=== PATIENT | male | born 1935 | race Caucasian/White ===

== ENCOUNTER 2020-02-01 08:51 | Outpatient (REF) | payer MEDICARE, SELFPAY ==
--- NOTE | 2020-02-01 | US_ITS ---
EXAMINATION: ULTRASOUND ABDOMINAL AORTIC ANEURYSM CLINICAL INFORMATION: AAA, follow-up. COMPARISON: Ultrasound of the abdominal aorta dated 12/05/2018 and 11/29/2017. TECHNIQUE: Multiple 2-D grayscale and duplex Doppler ultrasound images of the abdominal aorta were obtained. FINDINGS: Maximum abdominal aortic and common iliac measurements are as follows: Proximal aorta: 2.3 x 2.2 cm (previously 2.6 x 2.4 cm) Mid aorta: 2.4 x 2.1 cm (previously 2.4 x 2.4 cm) Distal aorta: 4.6 x 3.6 cm (previously 3.8 x 3.8 cm), the patent lumen measures up to 2.4 cm in transverse dimension without significant change. Right common iliac: 1.1 cm Left common iliac: 1.1 cm US/US abdominal aortic aneurysm IMPRESSION: 1. Infrarenal abdominal aortic aneurysm with interval increase in size as detailed above. The patent lumen component has not significantly changed.
== END 2020-02-01 08:52 | disposition home or self-care (01) ==
LOC: HO.US 08:51
PROVIDERS: PCP Internal Medicine; Visit Provider Internal Medicine
DX: I74.4 Embolism and thrombosis of arteries of extremities, unspecified (principal)
CPT/HCPCS: 76706

== ENCOUNTER 2020-05-16 17:18 | Emergency (ER) | payer MEDICARE, SELFPAY ==
--- NOTE | ~2020-05-16 | CT_ITS ---
EXAMINATION: CT BRAIN AND CT CERVICAL SPINE WITHOUT CONTRAST. CLINICAL INFORMATION: Fall. COMPARISON: None TECHNIQUE: 5 mm thin axial and reformatted 2 mm thin sagittal and coronal images of brain were obtained. Subsequently axial 3 mm thin and reformatted 2 mm thin sagittal and coronal images of cervical spine were obtained. DLP 920 FINDINGS: BRAIN: There is no acute intra-axial, extra-axial bleed, masses or midline shift. There is no acute infarction in evolution. The lateral ventricles are symmetrical in size and configuration without enlargement. The acevedo to white matter is maintained. Bone windows reveal no calvarial abnormality. A 3 mm radiopaque foreign body seen along the right frontal scalp. The paranasal sinuses and mastoid air cells are well-aerated. CERVICAL SPINE: There is normal cervical lordosis. The vertebral heights are normal. There is anterolisthesis C4-C5 and C5 over C6. There is loss of C4-C5, C5-C6 and C6-C7 disc heights with moderate ventral and mild posterior spondylosis. The craniovertebral junction and the C1-C2 alignment is normal. CT/CT cervical spine wo con IMPRESSION: No acute intracranial process seen. No acute fracture or dislocation cervical spine. Grade 1 anterolisthesis C4 over C5 and C5 over C6. There are degenerative disc changes at the C4-C5, C5-C6 and C6 -7 disc levels. No lytic or sclerotic process seen.
--- NOTE | ~2020-05-16 | CT_ITS ---
EXAMINATION: CT BRAIN AND CT CERVICAL SPINE WITHOUT CONTRAST. CLINICAL INFORMATION: Fall. COMPARISON: None TECHNIQUE: 5 mm thin axial and reformatted 2 mm thin sagittal and coronal images of brain were obtained. Subsequently axial 3 mm thin and reformatted 2 mm thin sagittal and coronal images of cervical spine were obtained. DLP 920 FINDINGS: BRAIN: There is no acute intra-axial, extra-axial bleed, masses or midline shift. There is no acute infarction in evolution. The lateral ventricles are symmetrical in size and configuration without enlargement. The acevedo to white matter is maintained. Bone windows reveal no calvarial abnormality. A 3 mm radiopaque foreign body seen along the right frontal scalp. The paranasal sinuses and mastoid air cells are well-aerated. CERVICAL SPINE: There is normal cervical lordosis. The vertebral heights are normal. There is anterolisthesis C4-C5 and C5 over C6. There is loss of C4-C5, C5-C6 and C6-C7 disc heights with moderate ventral and mild posterior spondylosis. The craniovertebral junction and the C1-C2 alignment is normal. CT/CT head/brain wo con IMPRESSION: No acute intracranial process seen. No acute fracture or dislocation cervical spine. Grade 1 anterolisthesis C4 over C5 and C5 over C6. There are degenerative disc changes at the C4-C5, C5-C6 and C6 -7 disc levels. No lytic or sclerotic process seen.
[2020-05-16 17:35] VITALS: BP 160/90; PULSE 90; O2SAT 98
[2020-05-16 17:36] VITALS: BP 121/70; PULSE 86; RESP 16; TEMP 36.5; O2SAT 98; BMI 19.3
--- NOTE | 2020-05-16 17:43 | PC.NURSE ---
called pt's pharmacy to determine if pt uses blood thinners. Pharmacy reports he does not take blood thinners, has not for 2 years.
[2020-05-16 17:44] VITALS: BP 121/70; PULSE 86; RESP 16; TEMP 36.5; O2SAT 98
[2020-05-16 18:49] LABS: Basophils Absolute Auto 0.1 X10*3/uL (0.0-0.2); Basophils Percent Auto 0.4 % (0-2); Eosinophils Absolute Auto 0.1 X10*3/uL (0.0-0.4); Eosinophils Percent Auto 1.1 % (0-4); Hematocrit 37.5 % (42-52); Hemoglobin 12.4 g/dl (14.0-18.0); Imm Gran Pct Auto 0.9 % (0.0-0.4); Lymphocytes Absolute Auto 0.6 X10*3/uL (1.2-4.9); MANUAL DIFF FLAG SCAN; Mean Corpuscular HGB Conc 33.1 g/dl (31.0-36.0); Mean Corpuscular Hemoglobin 31.2 pg (27.0-33.0); Mean Corpuscular Volume 94.5 fL (80-98); Mean Platelet Volume 11.7 fL (9.4-12.4); Monocytes Percent Auto 8.2 % (2-11); Neutrophils Absolute Auto 9.9 X10*3/uL (2.0-8.3); Neutrophils Percent Auto 84.4 % (45-73); Platelet Count 226 X10*3/uL (160-400); Red Blood Count 3.97 X10*6/uL (4.60-5.80); Red Cell Distribution Width 13.8 % (11.0-16.0); SCAN SMEAR FLAG 1; White Blood Count 11.8 X10*3/uL (4.8-10.8)
[2020-05-16 18:57] LABS: INTERNATIONAL NORM RATIO 1.2 (0.9-1.1); Prothrombin Time 14.7 SEC (10.8-13.0)
[2020-05-16 18:59] LABS: Partial Thromboplastin Time 33.6 SEC (24.1-38.0)
[2020-05-16 19:10] VITALS: BP 133/67; PULSE 84; RESP 16; TEMP 37.1; O2SAT 99
[2020-05-16 19:13] LABS: SLIDE REVIEW VERIFIED
--- NOTE | 2020-05-16 19:41 | ED_ITS ---
HPI - Fall General Chief Complaint: Fall Stated Complaint: FALL,-LOC,+COLLAR,+THINNERS,LAC+ABRASION Time Seen by Provider: 05/16/20 17:41 Source: EMS Mode of arrival: EMS Limitations: no limitations History of Present Illness HPI Narrative: Pleasant 84-year-old male presenting via EMS with complaint of fall states he was walking and he stumbled and his leg gave out fell forward hitting his head on the sidewalk resulting in abrasion/laceration to the forehead area. Denies any LOC. Positive C-collar. There is a question whether he is taking blood thinners but he denies this. Onset (ago): minute(s) Fall from: standing Fall witnessed: yes, by family Place fall occurred: street Loss of consciousness: none Length of LOC: second(s) Prolonged down time: no Symptoms prior to fall: none Context: tripped/slipped Location of injury: head and face Related Data Allergies Allergy/AdvReac Type Severity Reaction Status Date / Time No Known Allergies Allergy Mild NONE Unverified 11/02/19 15:17 Review of Systems Review of Systems: Constitutional: No Weight loss, No Fever, No Chills, No Night Sweats, No Fatigue, No Malaise ENT/Mouth: No Hearing loss, No Ear Pain, No Nasal Congestion, No Sinus Pain, No Hoarseness, No sore throat, No Rhinorrhea, No Swallowing Difficulty Eyes: No Eye Pain, No Swelling, No Redness, No Foreign Body, No Discharge, No Vision Changes Cardiovascular: No Chest Pain, No SOB, No Dyspnea on Exertion, No Orthopnea, No Edema, No Palpitations Respiratory: No Cough, No Sputum, No Wheezing, No Smoke Exposure, No Dyspnea Gastrointestinal: No Nausea, No Vomiting, No Diarrhea, No Constipation, No ab dominal Pain, No Hematochezia, No Melena Genitourinary: no irregular bleeding, No Dysuria, No Urinary Frequency, No Hematuria, No Urinary Incontinence, No Urgency, No Flank Pain, No Urinary Flow Changes, No Hesitancy Musculoskeletal: No joint pain, No Myalgias, No Joint Swelling Skin: No Skin Lesions, No rash Neuro: No Weakness, No Numbness, No Paresthesias, No Loss of Consciousness, No Dizziness, No Headache Psych: No Social Issues Heme/Lymph: No Bruising, No Bleeding,No Lymphadenopathy Endocrine: No Polyuria, No Polydipsia, No Temperature Intolerance Yes all other systems are reviewed and are negative [facility] Social History Social History Alcohol intake: never Smoking Status: Former smoker Use of substances other than those prescribed or required for medical reasons: No Advance Directives: No Advance Directives Information Provided: Yes Physical Exam Vital Signs: Vital Signs: Last Vital Signs Temp 98.7 F 05/16/20 19:10 Pulse 84 05/16/20 19:10 Resp 16 05/16/20 19:10 BP 133/67 05/16/20 19:10 Pulse Ox 99 05/16/20 19:10 Body Mass Index 19.3 Reviewed Const: General: cooperative and healthy appearing; No acute distress or intoxicated appearing Nutritional Appearance: average body habitus Orientation/consciousness: patient oriented x3 HENMT: Head: Yes normal to inspection Head images: 1. Superficial overlying abrasion with 0.5 cm laceration. 2. Superficial abrasion no active bleeding. Nasal structure symmetrical and midline without deformity. Ears: hearing grossly normal bilaterally General nose exam: Normal nares pre sent, No nasal polyps present, Normal septum present, normal septum, no foreign body in nares and no nasal polyps Face and sinus: Yes face symmetric, Yes abrasion and No Facial tenderness on exam of face and sinuses Mouth: Normal oral and palatal mucosa present and lip normal Eyes: General: appearance normal, both eyes and all related structures Visual Adorno: normal visual adorno by confrontation Neck: Neck: Yes normal visual inspection, No positive Brudzinski's sign, No positive Kernig's sign and No tender Thyroid: Thyroid normal Chest: Chest palpation & inspection: normal inspection of the chest Resp: Effort & Inspection: normal respiratory effort Cardio: Jugular venous distension: no JVD Rate: regular rate Rhythm: regular rhythm Heart sounds: S1 normal heart sound present and S2 normal heart sound present GI: Inspection: Yes normal to inspection Percussion: Yes normal to percussion Auscultation: normal bowel sounds : General: Yes no CVA tenderness Back/Spine/Pelvis: Back: no CVA tenderness Skin: General skin exam: no rashes or lesions noted Neuro: General: patient oriented x3 Extrem: General: Yes normal to inspection NIH Stroke Scale Internal: Initial- Upon Arrival Level of Consciousness: Alert Level of Consciousness Questions: Answers both questions correctly Level of Consciousness Commands: Performs both tasks correctly Best Gaze: Normal Visual: No visual loss Facial Palsy: Normal Motor Arm (Right): No drift Motor Arm (Left): No drift Motor Leg (Right): No drift Motor Leg (Left): No drift Limb Ataxia: Absent Sensory: Normal Best Language: No aphasia Dysarthia: Normal Extinction and Inattention: No abnormality Score: 0 Course Course Course Narrative: Mechanical fall resulting in abrasion/knee laceration to the forehead and nasal bridge there was a clear foreign body /small gravel stone that was removed with ease and 1 stitch was placed in the forehead. No acute findings on the cervical/head CT. Patient out of bed dressed himself put shoes on and ambulatory steady gait. Offers no other complaints. Daughter here to pick him up. Procedures Laceration Laceration 1: Site: face Size (cm): 0.5 Description: linear and contaminated (Small gravel stone about 3 mm in size removed in bed in the superficial tissue.) Depth: simple, single layer Local Anesthetic: lidocaine 1% Amount of anesthesia used (mL): 2 Pre-repair: wound explored and irrigated extensively Skin layer closed with: nylon Size (cm): 6-0 Number of sutures: 1 Technique: simple, interrupted MDM - Fall Medical Records Attestation: I reviewed the patient's medical records. Lab Data Attestation: I reviewed the patient's lab results. Result diagrams: 05/16/20 18:34 Labs: Lab Results 05/16/20 05/16/20 Range/Units 18:34 18:34 WBC 11.8 H (4.8-10.8) X10*3/uL RBC 3.97 L (4.60-5.80) X10*6/uL Hgb 12.4 L (14.0-18.0) g/dl Hct 37.5 L (42-52) % MCV 94.5 (80-98) fL MCH 31.2 (27.0-33.0) pg MCHC 33.1 (31.0-36.0) g/dl RDW 13.8 (11.0-16.0) % Plt Count 226 (160-400) X10*3/uL MPV 11.7 (9.4-12.4) fL Immature Gran % (Auto) 0.9 H (0.0-0.4) % Neut % (Auto) 84.4 H (45-73) % Lymph % (Auto) 5.0 L (20-40) % [place] % (Auto) 8.2 (2-11) % Eos % (Auto) 1.1 (0-4) % Baso % (Auto) 0.4 (0-2) % Lymph # (Auto) 0.6 L (1.2-4.9) X10*3/uL [place] # (Auto) 1.0 (0.1-1.2) X10*3/uL Eos # (Auto) 0.1 (0.0-0.4) X10*3/uL Baso # (Auto) 0.1 (0.0-0.2) X10*3/uL Abs Immat Gran (auto) 0.10 H (0.00-0.03) X10*3/uL Absolute Neuts (auto) 9.9 H (2.0-8.3) X10*3/uL Absolute Nucleated RBC 0.000 (0.0-0.012) X10*3/uL Nucleated RBC % (auto) 0.0 (0.0-0.2) /100WBC Smear Tech's Comments VERIFIED PT 14.7 H (10.8-13.0) SEC INR 1.2 H (0.9-1.1) APTT 33.6 (24.1-38.0) SEC Imaging Data Head/cervical spine CT: Radiologist's impression: [address] [id number] Scan ReportSigned Patient: Magno Kilgore [facility]#: [id number]: 1935cct:[id number]/Sex: 84 / MADM Date: 05/16/20Loc: [email or web address] Dr: Ordering Physician: Jackson Gates NP Date of Service: 05/16/20 Procedure(s): CT cervical spine wo con Accession Number(s): [id number] cc: Jackson Gates [employer]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 CLINICAL INFORMATION: Fall. COMPARISON: None TECHNIQUE: 5 mm thin axial and reformatted 2 mm thin sagittal and coronal images of brain were obtained. Subsequently axial 3 mm thin and reformatted 2 mm thin sagittal and coronal images of cervical spine were obtained. DLP 920 FINDINGS: BRAIN: There is no acute intra-axial, extra-axial bleed, masses or midline shift. There is no acute infarction in evolution. The lateral ventricles are symmetrical in size and configuration without enlargement. The acevedo to white matter is maintained. Bone windows reveal no calvarial abnormality. A 3 mm radiopaque foreign body seen along the right frontal scalp. The paranasal sinuses and mastoid air cells are well-aerated. CERVICAL SPINE: There is normal cervical lordosis. The vertebral heights are normal. There is anterolisthesis C4-C5 and C5 over C6. There is loss of C4-C5, C5-C6 and C6-C7 disc heights with moderate ventral and mild posterior spondylosis. The craniovertebral junction and the C1-C2 alignment is normal. CT/CT cervical spine wo con IMPRESSION: No acute intracranial process seen. No acute fracture or dislocation cervical spine. Grade 1 anterolisthesis C4 over C5 and C5 over C6. There are degenerative disc changes at the C4-C5, C5-C6 and C6 -7 disc levels. No lytic or sclerotic process seen. 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[facility] [place] Discharge Clinical Impression: Fall Qualifiers: Encounter type: initial encounter Qualified Code(s): W19.XXXA - Unspecified fall, initial encounter Forehead laceration Qualifiers: Encounter type: initial encounter Qualified Code(s): S01.81XA - Laceration without foreign body of other part of head, initial encounter Abrasion of nose Qualifiers: Encounter type: initial encounter Qualified Code(s): S00.31XA - Abrasion of nose, initial encounter Patient Disposition: Home, Self-Care Instructions: Abrasion (ED), Fall Prevention (ED), Facial Laceration (ED) Additional Instructions: The CT scan of your head and neck did not show any acute findings Home safety as reviewed Have stitches removed from the forehead in 5-7 days Keep site clean and dry Monitor for signs of infection including redness, swelling, discharge, pain, fever if any of these present return right away to emergency room You come here to have this removed or your primary care doctor Return if any concerns worsening symptoms Follow up as instructed Thank you Referrals: Neeraj Andrew MD [Primary Care Provider] - 5 days
== END 2020-05-16 19:59 | disposition home or self-care (01) ==
PROVIDERS: Nurse Practitioner Primary Care; Emergency Provider Emergency Medicine; PCP Internal Medicine
DX: S01.81XA Laceration without foreign body of other part of head, initial encounter (principal); S00.31XA Abrasion of nose, initial encounter; W01.0XXA Fall on same level from slipping, tripping and stumbling without subsequent striking against object, initial encounter; Y93.01 Activity, walking, marching and hiking; Y92.480 Sidewalk as the place of occurrence of the external cause; Y99.9 Unspecified external cause status
CPT/HCPCS: 12053; 36415; 70450; 72125; 85025; 85610; 85730; 99284

== ENCOUNTER 2020-05-23 11:18 | Emergency (ER) | payer MEDICARE, SELFPAY ==
[2020-05-23 11:31] VITALS: BP 108/63; PULSE 103; RESP 18; TEMP 36.7; O2SAT 98; BMI 40.1
--- NOTE | 2020-05-23 11:40 | ED.SKABFB ---
HPI - Skin/Abscess/Foreign Bdy General Chief complaint: Skin/Abscess/Foreign Body Stated complaint: suture removal Time Seen by Provider: 05/23/20 11:40 History of Present Illness HPI narrative: Patient presents for removal for 1 suture in his forehead, there is no complaints of swelling discharge or redness, no pain Related Data Allergies Allergy/AdvReac Type Severity Reaction Status Date / Time No Known Allergies Allergy Mild NONE Verified 05/23/20 11:39 Review of Systems Review of Systems: Positive for suture removal Negative no fever no chills no dizziness no weakness no discharge from the wound no joint pains PMFSH Past Medical History Source: nursing notes reviewed Social History Social History Alcohol intake: never Smoking Status: Former smoker Advance Directives: No Advance Directives Information Provided: No Physical Exam Vital Signs: Vital Signs: Last Vital Signs Temp 98.0 F 05/23/20 11:31 Pulse 103 H 05/23/20 11:31 Resp 18 05/23/20 11:31 BP 108/63 05/23/20 11:31 Pulse Ox 98 05/23/20 11:31 Body Mass Index 40.1 General appearance: Comfortable cooperative The head shows a suture line in the forehead which has no surrounding erythema no swelling no discharge or evidence of infection The neck is supple, Respiratory no distress Extremities full range of motion x4 Course Course Course Narrative: Sutures are removed from forehead laceration with no dehiscence or complication and patient is discharged Discharge Plan Discharge Clinical Impression: Visit for suture removal Patient Disposition: Home, Self-Care Interventions: ED Discharge Assessment Last Done: 05/23/20 12:13 Discharge Date/Time: 05/23/20 12:14
== END 2020-05-23 12:14 | disposition home or self-care (01) ==
PROVIDERS: Emergency Provider Emergency Medicine; PCP Internal Medicine
DX: Z48.02 Encounter for removal of sutures (principal); S01.81XD Laceration without foreign body of other part of head, subsequent encounter; X58.XXXD Exposure to other specified factors, subsequent encounter
CPT/HCPCS: 99283

== ENCOUNTER 2020-06-10 13:30 | Outpatient (REF) | payer MEDICARE, SELFPAY ==
[2020-06-10 13:59] LABS: Estimated Average Glucose 103 mg/dL; Hemoglobin A1c % 5.2 %
[2020-06-10 14:41] LABS: Alanine Aminotransferase 47 U/L (0-40); Albumin Level 3.3 g/dL (3.5-5.0); Alkaline Phosphatase 627 U/L (39-117); Anion Gap 17 (12-20); Aspartate Amino Transferase 72 U/L (5-37); Bilirubin Total 1.5 mg/dL (0.0-1.0); Blood Urea Nitrogen 18 mg/dL (9-16); Calcium 8.8 mg/dL (8.4-10.2); Carbon Dioxide 25 mmol/L (22-29); Chloride 102 mmol/L (96-108); Estimated Glomerular Filt Rate > 60; Glucose Random 97 mg/dL (60-115); Potassium 4.7 mmol/L (3.3-5.1); Sodium 139 mmol/L (135-145); Total Protein 6.3 g/dL (6.5-8.0)
== END 2020-06-10 13:31 | disposition home or self-care (01) ==
LOC: HO.LNP 13:30
PROVIDERS: Visit Provider Internal Medicine
DX: R63.4 Abnormal weight loss (principal); R73.03 Prediabetes
CPT/HCPCS: 80053; 83036

== ENCOUNTER → 2020-06-20 10:56 | Outpatient (REF) | payer MEDICARE, SELFPAY ==
--- NOTE | ~2020-06-20 | NM_ITS ---
EXAMINATION: NM BONE SCAN OF THE WHOLE BODY CLINICAL INFORMATION: Prostate cancer. COMPARISON: No pertinent studies to compare. TECHNIQUE: Multiple gamma scintillation camera images of the whole body were performed 2 hours following the intravenous administration of 20 mCi Tc-99m MDP. FINDINGS: In the head, unremarkable. In the thoracic cage and upper extremities, unremarkable. Some mild uptake in the right AC joint is likely degenerative. In the spine, unremarkable. Activity on the anterior image overlying the mid lumbar vertebrae may be in soft tissue. No obliques are obtained. I cannot exclude vertebral body uptake anterior. In the pelvis, unremarkable. In the lower extremities, unremarkable. Otherwise, there is some uptake on the anterior image overlying the L2-L3 central and to the left. No finding on the posterior image. The urinary bladder and faint visualization of both kidneys are noted. NM/NM bone scan whole body IMPRESSION: As described, some globular activity on the anterior image overlying the mid lumbar vertebrae of uncertain etiology. This could be uptake in soft tissue versus vertebral body activity. Recommend CT to fully evaluate. Otherwise, no scintigraphic evidence of metastatic disease.
== END ==
LOC: HO.NUCMED 10:56
PROVIDERS: PCP Internal Medicine; Visit Provider Internal Medicine
DX: C61 Malignant neoplasm of prostate (principal); R74.8 Abnormal levels of other serum enzymes
CPT/HCPCS: 78306; A9503

== ENCOUNTER 2020-06-25 18:08 | Inpatient (IN) | payer MEDICARE, SELFPAY ==
--- NOTE | ~2020-06-25 | CT_ITS ---
EXAMINATION: CT ABDOMEN AND PELVIS WITH CONTRAST CLINICAL INFORMATION: Diffuse abdominal pain. Worsening pain left lower quadrant. COMPARISON: CT scan abdomen pelvis 09/30/2011 TECHNIQUE: Multidetector volumetric images were obtained from the superior aspect of the liver through the pubic symphysis following administration 85 mL of Omnipaque 350 intravenous contrast. Sagittal and coronal reformatted images were obtained on the technologist's workstation. Oral contrast: No This CT examination was performed using dose optimization techniques as appropriate, variously including the following: *Automated exposure control *Adjustment of mA and/or kV according to patient size (this includes techniques or standardized protocols for targeted exams where dose is matched to indication/reason for exam; i.e. extremities or head) *Use of iterative reconstruction technique DLP: 294 mGy-cm FINDINGS: LUNG BASES: Marked emphysematous change of lungs. No acute airways disease. No pleural effusion. LIVER, GALLBLADDER, AND BILIARY TREE: There are innumerable hypodense masses throughout the liver consistent with metastatic disease. No intrahepatic bile duct dilatation. The gallbladder is unremarkable with no evidence of radiopaque gallstones, gallbladder wall thickening, or obvious pericholecystic inflammatory changes. PANCREAS: Pancreas is atrophic. No acute change of the pancreas. No pancreatic mass. Pancreatic duct dilatation. SPLEEN: Unremarkable. ADRENAL GLANDS: Unremarkable. KIDNEYS AND URETERS: The kidneys are normal in size, shape, and attenuation. No hydronephrosis, hydroureter, or calculi seen. No perinephric stranding. Bilateral exophytic renal cysts. In the right is a midpole cyst measuring 4 cm. The left there is Extensive the upper pole measuring 3.7 cm. No follow-up imaging is recommended for simple renal cyst. BLADDER: Unremarkable. GASTROINTESTINAL TRACT: There is an intussusception involving the right colon at the hepatic flexure. There appears to be intussusception of the cecum along with the terminal ileum into the colon at the hepatic flexure. The cecum appears to have mild thickening of the wall. Given the presence of the metastatic change of liver a neoplasm would be suspected of the colon. There is no obstruction of the bowel however. No dilatation of small bowel loops. Moderate volume of stool in the colon. ABDOMINAL WALL: No significant hernia is appreciated. LYMPH NODES: No significant lymphadenopathy in the abdomen or pelvis. There are a few scattered shotty lymph nodes in the retroperitoneum. VASCULAR: Redemonstration of known infrarenal abdominal aortic aneurysm. This has a maximal dimension at the mid to distal aorta measuring AP 4.7 by transverse 3.8 cm axial image [id number] series 4. Aneurysm on the ultrasound exam of 02/01/2020 measuring 4.6 x 3.6 cm. There is intraluminal thrombus present in the aorta. There are diffuse extensive atherosclerotic vascular wall calcifications throughout the abdomen and pelvis. There is normal enhancement of the portal vein and splenic vein and superior mesenteric vein. MESENTERY: Small volume of abdominal ascites in the lower pelvis around the inferior liver margin. No inflammation or free air. PELVIC VISCERA: Prostate and seminal vesicles are surgically absent. Small hydrocele present bilaterally. OSSEOUS STRUCTURES: Multilevel degenerative spondylosis spine. Compression deformity superior endplate of L2 appears to be chronic though is new since prior CAT scan of 2011. There is about 30% loss of height of the central vertebrae. No suspicious focal bone lesions. CT/CT abdomen pelvis w con IMPRESSION: 1. Innumerable masses throughout the liver consistent with metastatic disease. 2. Intussusception at the hepatic flexure involving the cecum and terminal ileum. Thickening of the cecal wall. Given the presence of the metastatic lesions neoplasm of colon is suspected. 3. Small volume of abdominal ascites. 4. Stable infrarenal abdominal aortic aneurysm. Recommend continued follow-up at 6 months. 5. Status post prostatectomy and resection of seminal vesicles. Small bilateral hydrocele and scrotal sac. 6. Emphysematous change of lungs. This critical result was discussed with Dr. Flores on 06/25/2020, 11:35 PM and it was ascertained that the content and urgency of the report was understood at the time of direct communication.
--- NOTE | ~2020-06-25 | CT_ITS ---
PROCEDURE: CT GUIDED BIOPSY, LIVER CLINICAL INFORMATION: Metastatic disease to liver COMPARISON: CT scanning of June 25, 2020 and September 30, 2011 TECHNIQUE: CT fluoroscopic guided liver biopsy This CT examination was performed using dose optimization techniques as appropriate, variously including the following: *Automated exposure control *Adjustment of mA and/or kV according to patient size (this includes techniques or standardized protocols for targeted exams where dose is matched to indication/reason for exam; i.e. extremities or head) *Use of iterative reconstruction technique DLP: 167 mGy-cm FINDINGS: Informed consent was obtained from the patient prior to the procedure. During this process, the procedure and potential alternatives were explained, along with the intended outcome and benefits. The risks of the procedure, as well as the risk of not doing the procedure, were discussed. The patient was given the opportunity to ask questions regarding the procedure and appeared competent to make medical decisions. A signed consent form which documents this discussion was placed in the medical record. Preliminary scanning demonstrates prominence of the liver with multiple regions of diminished density present. Small bilateral pleural effusions are seen as well as small amount of free fluid within the abdomen. Increased density seen within the gallbladder likely related to vicarious excretion of contrast. An infrarenal Abdominal aortic aneurysm is seen measuring 5 x 3.9 cm in size. Using sterile technique and CT fluoroscopic guidance a 19-gauge needle guide was placed from an anterior approach into the left lobe of liver. 3 20-gauge core biopsies were then performed. Patient can't procedure without difficulty. Post biopsy scanning did not demonstrate any evidence of subcapsular hematoma. CT/CT biopsy liver IMPRESSION: Successful liver core biopsy as described.
[2020-06-25 19:04] VITALS: BP 98/48; PULSE 90; RESP 18; TEMP 36.4; O2SAT 98; BMI 18.4
[2020-06-25 20:50] VITALS: BP 126/67; PULSE 79; RESP 22; TEMP 37.3; O2SAT 99
--- NOTE | 2020-06-25 20:51 | PC.NURSE ---
Pt aaox4, ambulatory with steady gait. Pt c/o abdominal pain, requesting PO fluids, this RN informs pt he is NPO until provider has seen him, imaging has been obtained and resulted if indicated, and pt cleared by provider for PO intake. Pt expresses understanding. pt reports he took tylenol for his discomfort earlier in day and it is now wearing off. This RN informs pt that once seen by provider, he can likelybe medicated for pain. Pt expresses understanding and agrees to plan. Victorina Gandhi at bedside placing pt on bedside monitoring specialist and obtaining VS. Pt stretcher in lowest locked position, rails raised, call paris within reach.
--- NOTE | 2020-06-25 21:24 | ECG_ITS ---
Test Reason : WEAK Blood Pressure : / mmHG Vent. Rate : 092 BPM Atrial Rate : 092 BPM P-R Int : 110 ms QRS Dur : 080 ms QT Int : 406 ms P-R-T Axes : 086 040 003 degrees QTc Int : 503 ms Sinus rhythm with short ID Inferior infarct-cited before Prolonged QT Abnormal ECG When compared with ECG of 24-NOV-2016 11:16, T wave amplitude has decreased in Anterolateral leads QT has lengthened Referred By: Phyllis Flores Electronically Signed By:Jaya Greenberg
--- NOTE | 2020-06-25 21:29 | ED_ITS ---
HPI - Abdominal Pain General Chief Complaint: Abdominal Pain Stated Complaint: abd pain Time Seen by Provider: 06/25/20 20:20 Source: patient Mode of arrival: ambulatory Limitations: no limitations History of Present Illness HPI narrative: Patient comes emergency room complaining of diffuse abdominal pain, but worse on the left lower quadrant. Patient complaining of diarrhea for 3 weeks. Patient states he has been having intermittent abdominal pain for the last 2-3 years, the abdominal pain usually lasts for about 5 days and then self resolves. However, this time it has been 3 weeks. Patient denies vomiting, no chest pain, no shortness of breath. Patient denies black stool or fresh blood per rectum. Denies dysuria Related Data Allergies Allergy/AdvReac Type Severity Reaction Status Date / Time No Known Allergies Allergy Mild NONE Verified 05/23/20 11:39 Review of Systems Review of Systems Constitutional : No Weight loss, No Fever, No Chills, No Night Sweats, No F atigue, No Malaise ENT/Mouth : No Hearing loss, No Ear Pain, No Nasal Congestion, No Sinus Pain, No Hoarseness, No sore throat, No Rhinorrhea, No Swallowing Difficulty Eyes: No Eye Pain, No Swelling, No Redness, No Foreign Body, No Discharge, No Vision Changes Cardiovascular : No Chest Pain, No SOB, No Dyspnea on Exertion, No Orthopnea, No Edema, No Palpitations Respiratory : No Cough, No Sputum, No Wheezing, No Smoke Exposure, No Dyspnea Gastrointestinal : No Nausea, No Vomiting, complaining of diarrhea for 3 weeks, No Constipation, complaining of abdominal cramping, worse in the left lower q uadrant, sharp that time. No Hematochezia, No Melena Genitourinary : no irregular bleeding, No Dysuria, No Urinary Frequency, No Hematuria, No Urinary Incontinence, No Urgency, No Flank Pain, No Urinary Flow Changes, No Hesitancy Musculoskeletal : No joint pain, No Myalgias, No Joint Swelling Skin : No Skin Lesions, No rash Neuro : No Weakness, No Numbness, No Paresthesias, No Loss of Consciousness, No Dizziness, No Headache Psych : No Anxiety/Panic, No Depression, No SI/HI/AH/VH, No Social Issues, Heme/Lymph: No Bruising, No Bleeding,No Lymphadenopathy Endocrine : No Polyuria, No Polydipsia, No Temperature Intolerance Physical Exam Vital Signs: Vital Signs: Last Vital Signs Temp 98.3 F 06/26/20 00:14 Pulse 91 06/26/20 00:14 Resp 19 06/26/20 00:31 BP 128/72 06/26/20 00:14 Pulse Ox 97 06/26/20 00:14 Body Mass Index 18.4 Appearance: Alert. Oriented X3. No acute distress. Eyes: Pupils equal, round and reactive to light. ENT: Pharynx normal. Neck: Normal inspection. Neck supple. No lymph nodes noted. No crepitus CVS: Normal heart rate and rhythm. Pulses normal. Normal S1 and S2 Respiratory: No respiratory distress. Breath sounds normal. No Wheezing. No rales Abdomen: Soft, mild discomfort to palpation over the left lower quadrant, No rigidity. No distention. Skin: Skin warm and dry. Normal skin color. Normal skin turgor. Extremities: No lower extremity edema. No lower extremity edema. No L acerations. No Rash Neuro: Oriented X 3. No motor deficit. No sensory deficit. Moving all extermit ies. No slurred speech. Course Course Course Narrative: I discussed the CT findings with the patient. I discussed with him the high likelihood of him having cecal neoplasm, the intussusception, and the liver metastasis. Patient states that at this time, he is not sure if he wants full treatment including chemo/radiation/surgery what ever may be needed. Patient states that he will make a better decision in the morning after he gets item Heme-Onc consult and speaks to his family. I discussed the CT and the patient with Dr. Tyler, patient will be admitted to Internal Medicine, he will consult in the morning. As mentioned above, patient will also need a Hematology-Oncology consult I discussed the patient with Dr. White who does not feel comfortable admitting a patient with an intussusception. I discussed the patient with Dr. Tyler and agrees to admit the patient. Medicine will be consulting MDM - Abdominal Pain Lab Data Result diagrams: 06/25/20 22:04 06/25/20 22:04 Labs: Lab Results 06/25/20 06/25/20 06/25/20 Range/Units 22:04 22:04 22:04 WBC 13.0 H (4.8-10.8) X10*3/uL RBC 4.04 L (4.60-5.80) X10*6/uL Hgb 12.7 L (14.0-18.0) g/dl Hct 39.7 L (42-52) % MCV 98.3 H (80-98) fL MCH 31.4 (27.0-33.0) pg MCHC 32.0 (31.0-36.0) g/dl RDW 17.2 H (11.0-16.0) % Plt Count 200 (160-400) X10*3/uL MPV 11.7 (9.4-12.4) fL Immature Gran % (Auto) 0.4 (0.0-0.4) % Neut % (Auto) 85.5 H (45-73) % Lymph % (Auto) 5.6 L (20-40) % Nicholas % (Auto) 7.9 (2-11) % Eos % (Auto) 0.5 (0-4) % Baso % (Auto) 0.1 (0-2) % Lymph # (Auto) 0.7 L (1.2-4.9) X10*3/uL Nicholas # (Auto) 1.0 (0.1-1.2) X10*3/uL Eos # (Auto) 0.1 (0.0-0.4) X10*3/uL Baso # (Auto) 0.0 (0.0-0.2) X10*3/uL Abs Immat Gran (auto) 0.05 H (0.00-0.03) X10*3/uL Absolute Neuts (auto) 11.1 H (2.0-8.3) X10*3/uL Absolute Nucleated RBC 0.000 (0.0-0.012) X10*3/uL Nucleated RBC % (auto) 0.0 (0.0-0.2) /100WBC PT 17.8 H D (10.8-13.0) SEC INR 1.5 H (0.9-1.1) Sodium 142 (135-145) mmol/L Potassium 4.6 (3.3-5.1) mmol/L Chloride 101 (96-108) mmol/L Carbon Dioxide 28 (22-29) mmol/L Anion Gap 18 (12-20) BUN 19 H (9-16) mg/dL Creatinine 0.78 (0.5-1.4) mg/dL Estim Creat Clear Calc 45.6 Estimated GFR > 60 Random Glucose 80 (60-115) mg/dL Calcium 9.2 (8.4-10.2) mg/dL Total Bilirubin 2.4 H (0.0-1.0) mg/dL Direct Bilirubin 1.8 H (0.0-0.5) mg/dL AST 54 H (5-37) U/L ALT 33 (0-40) U/L Alkaline Phosphatase 624 H (39-117) U/L Total Protein 6.3 L (6.5-8.0) g/dL Albumin 3.2 L (3.5-5.0) g/dL Lipase (8-78) U/L Stool Occult Blood (NEGATIVE) COVID-19 ([facility]) (Negative) COVID-19 Clin Com 06/25/20 06/26/20 06/26/20 Range/Units 22:04 00:18 00:18 WBC (4.8-10.8) X10*3/uL RBC (4.60-5.80) X10*6/uL Hgb (14.0-18.0) g/dl Hct (42-52) % MCV (80-98) fL MCH (27.0-33.0) pg MCHC (31.0-36.0) g/dl RDW (11.0-16.0) % Plt Count (160-400) X10*3/uL MPV (9.4-12.4) fL Immature Gran % (Auto) (0.0-0.4) % Neut % (Auto) (45-73) % Lymph % (Auto) (20-40) % Nicholas % (Auto) (2-11) % Eos % (Auto) (0-4) % Baso % (Auto) (0-2) % Lymph # (Auto) (1.2-4.9) X10*3/uL Nicholas # (Auto) (0.1-1.2) X10*3/uL Eos # (Auto) (0.0-0.4) X10*3/uL Baso # (Auto) (0.0-0.2) X10*3/uL Abs Immat Gran (auto) (0.00-0.03) X10*3/uL Absolute Neuts (auto) (2.0-8.3) X10*3/uL Absolute Nucleated RBC (0.0-0.012) X10*3/uL Nucleated RBC % (auto) (0.0-0.2) /100WBC PT (10.8-13.0) SEC INR (0.9-1.1) Sodium (135-145) mmol/L Potassium (3.3-5.1) mmol/L Chloride (96-108) mmol/L Carbon Dioxide (22-29) mmol/L Anion Gap (12-20) BUN (9-16) mg/dL Creatinine (0.5-1.4) mg/dL Estim Creat Clear Calc Estimated GFR Random Glucose (60-115) mg/dL Calcium (8.4-10.2) mg/dL Total Bilirubin (0.0-1.0) mg/dL Direct Bilirubin (0.0-0.5) mg/dL AST (5-37) U/L ALT (0-40) U/L Alkaline Phosphatase (39-117) U/L Total Protein (6.5-8.0) g/dL Albumin (3.5-5.0) g/dL Lipase < 4 L (8-78) U/L Stool Occult Blood NEGATIVE (NEGATIVE) COVID-19 ([facility]) Negative (Negative) COVID-19 Clin Com See Note Imaging Data CT scan - abdomen: Radiologist's impression: FINDINGS: LUNG BASES: Marked emphysematous change of lungs. No acute airways disease. No pleural effusion. LIVER, GALLBLADDER, AND BILIARY TREE: There are innumerable hypodense masses throughout the liver consistent with metastatic disease. No intrahepatic bile duct dilatation. The gallbladder is unremarkable with no evidence of radiopaque gallstones, gallbladder wall thickening, or obvious pericholecystic inflammatory changes. PANCREAS: Pancreas is atrophic. No acute change of the pancreas. No pancreatic mass. Pancreatic duct dilatation. SPLEEN: Unremarkable. ADRENAL GLANDS: Unremarkable. KIDNEYS AND URETERS: The kidneys are normal in size, shape, and attenuation. No hydronephrosis, hydroureter, or calculi seen. No perinephric stranding. Bilateral exophytic renal cysts. In the right is a midpole cyst measuring 4 cm. The left there is Extensive the upper pole measuring 3.7 cm. No follow-up imaging is recommended for simple renal cyst. BLADDER: Unremarkable. GASTROINTESTINAL TRACT: There is an intussusception involving the right colon at the hepatic flexure. There appears to be intussusception of the cecum along with the terminal ileum into the colon at the hepatic flexure. The cecum appears to have mild thickening of the wall. Given the presence of the metastatic change of liver a neoplasm would be suspected of the colon. There is no obstruction of the bowel however. No dilatation of small bowel loops. Moderate volume of stool in the colon. ABDOMINAL WALL: No significant hernia is appreciated. LYMPH NODES: No significant lymphadenopathy in the abdomen or pelvis. There are a few scattered shotty lymph nodes in the retroperitoneum. VASCULAR: Redemonstration of known infrarenal abdominal aortic aneurysm. This has a maximal dimension at the mid to distal aorta measuring AP 4.7 by transverse 3.8 cm axial image [id number] series 4. Aneurysm on the ultrasound exam of 02/01/2020 measuring 4.6 x 3.6 cm. There is intraluminal thrombus present in the aorta. There are diffuse extensive atherosclerotic vascular wall calcifications throughout the abdomen and pelvis. There is normal enhancement of the portal vein and splenic vein and superior mesenteric vein. MESENTERY: Small volume of abdominal ascites in the lower pelvis around the inferior liver margin. No inflammation or free air. PELVIC VISCERA: Prostate and seminal vesicles are surgically absent. Small hydrocele present bilaterally. OSSEOUS STRUCTURES: Multilevel degenerative spondylosis spine. Compression deformity superior endplate of L2 appears to be chronic though is new since prior CAT scan of 2011. There is about 30% loss of height of the central vertebrae. No suspicious focal bone lesions. CT/CT abdomen pelvis w con IMPRESSION: 1. Innumerable masses throughout the liver consistent with metastatic disease. 2. Intussusception at the hepatic flexure involving the cecum and terminal ileum. Thickening of the cecal wall. Given the presence of the metastatic lesions neoplasm of colon is suspected. 3. Small volume of abdominal ascites. 4. Stable infrarenal abdominal aortic aneurysm. Recommend continued follow-up at 6 months. 5. Status post prostatectomy and resection of seminal vesicles. Small bilateral hydrocele and scrotal sac. 6. Emphysematous change of lungs. ECG Data Attestation: I personally reviewed and interpreted this ECG as follows: (Sinus rhythm, heart rate 92, no ST segment depression or elevation, no T-wave inversion, prolonged QTC 507) Discharge Plan Discharge Clinical Impression: Colon cancer metastasized to liver Patient Disposition: Admitted As Inpatient [facility] Social History Social History Alcohol intake: never Smoking Status: Never smoker Use of substances other than those prescribed or required for medical reasons: No Advance Directives: No Advance Directives Information Provided: Yes
[2020-06-25 22:09] LABS: MANUAL DIFF FLAG NO
[2020-06-25 22:11] LABS: Basophils Percent Auto 0.1 % (0-2); Eosinophils Absolute Auto 0.1 X10*3/uL (0.0-0.4); Eosinophils Percent Auto 0.5 % (0-4); Hematocrit 39.7 % (42-52); Hemoglobin 12.7 g/dl (14.0-18.0); Imm Gran Abs Auto 0.05 X10*3/uL (0.00-0.03); Imm Gran Pct Auto 0.4 % (0.0-0.4); Lymphocytes Absolute Auto 0.7 X10*3/uL (1.2-4.9); Lymphocytes Percent Auto 5.6 % (20-40); Mean Corpuscular Hemoglobin 31.4 pg (27.0-33.0); Mean Corpuscular Volume 98.3 fL (80-98); Mean Platelet Volume 11.7 fL (9.4-12.4); Monocytes Percent Auto 7.9 % (2-11); Neutrophils Absolute Auto 11.1 X10*3/uL (2.0-8.3); Neutrophils Percent Auto 85.5 % (45-73); Platelet Count 200 X10*3/uL (160-400); Red Blood Count 4.04 X10*6/uL (4.60-5.80); Red Cell Distribution Width 17.2 % (11.0-16.0)
[2020-06-25 22:16] LABS: INTERNATIONAL NORM RATIO 1.5 (0.9-1.1); Prothrombin Time 17.8 SEC (10.8-13.0)
[2020-06-25 22:36] VITALS: BP 121/64; PULSE 86; RESP 28; TEMP 36.7; O2SAT 97
[2020-06-25] MEDS: 0.9 % Sodium Chloride 1,000 ML 999 ML IVCONT (22:40)
[2020-06-25 22:41] VITALS: RESP 29
[2020-06-25] MEDS: Morphine Sulfate 2 MG/ML CARTRIDGE IVPUSH (22:41)
[2020-06-25 22:45] LABS: Lipase < 4 U/L (8-78)
[2020-06-25 22:46] LABS: Alanine Aminotransferase 33 U/L (0-40); Albumin Level 3.2 g/dL (3.5-5.0); Alkaline Phosphatase 624 U/L (39-117); Anion Gap 18 (12-20); Aspartate Amino Transferase 54 U/L (5-37); Bilirubin Direct 1.8 mg/dL (0.0-0.5); Bilirubin Total 2.4 mg/dL (0.0-1.0); Blood Urea Nitrogen 19 mg/dL (9-16); Calcium 9.2 mg/dL (8.4-10.2); Carbon Dioxide 28 mmol/L (22-29); Chloride 101 mmol/L (96-108); Creatinine Clr Calc Pharmacy 45.6; Estimated Glomerular Filt Rate > 60; Glucose Random 80 mg/dL (60-115); Potassium 4.6 mmol/L (3.3-5.1); Sodium 142 mmol/L (135-145); Total Protein 6.3 g/dL (6.5-8.0)
[2020-06-25] MEDS: iohexoL 350 MG/ML 100 ML INFUS..BTL 85 ML IV (23:14)
[2020-06-26] VITALS (9 sets, daily range): BP systolic 108–133; BP diastolic 59–72; PULSE 81–101; RESP 18–22; TEMP 36.3–36.9; O2SAT 90–99; BMI 18.4
--- NOTE | 2020-06-26 | ECG_ITS ---
Test Reason : PROLONGED QT Blood Pressure : / mmHG Vent. 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
[2020-06-26] MEDS: HYDROmorphone HCl 1 MG/ML SYRINGE IVPUSH (00:31)
[2020-06-26 00:32] LABS: OBS Int Ctl Valid YES; OBS1 NEGATIVE (NEGATIVE)
[2020-06-26 00:47] LABS: COVID-19 Test Negative (Negative); IDNOW Serial# 9DD0AD1C
[2020-06-26 01:15] LABS: Appearance Urine CLEAR; Color Urine DARK YELLOW; Glucose Urine UA NEG (NEG); Leukocyte Esterase Urine NEG (NEG); Nitrite Urine NEG (NEG); PH 5.5 (5.0-8.0); Specific Gravity - Urine 1.015 (1.005-1.025); Urine Blood TRACE (NEG); Urine Ketones 15 MG/DL (NEG); Urine Protein TRACE MG/DL (NEG-TRACE)
[2020-06-26 01:21] LABS: Mucus Urine 1+ /LPF; WBC Urine 0-2 /HPF (0-4)
[2020-06-26 01:22] LABS: Amorphous Sediment Urine 1+ /LPF
[2020-06-26] MEDS: Lactated Ringers 1,000 ML 100 ML IVCONT ×3 (01:30→22:31)
--- NOTE | 2020-06-26 08:22 | PM.IMHP ---
History of Present Illness Date of Service: 06/26/20 Chief Complaint: Medical management 84 year male with history HTN, HLD, COPD, history of CAD s/p TX at age 65 at the time of prostate cancer s/p surgery 20 years ago, here with abdominal pain that he has been having intermittently for year at 5 years and seem to have worsened recently and now associated with 15 Ib weight loss, diarrhea and is found to have liver mets of likely colon origin , in additional to Intussusception at the hepatic flexure involving the cecum andterminal ileum. Review of Systems Review of Systems: Gen: no fever Resp: no sob, no cough CV: no chest, no MOELLER, no leg edema GI: abd pain and diarrhea Neuro: No confusion Yes all other systems are reviewed and are negative [facility] Medical History (Updated 06/26/20 @ 09:46 by Levy Fuller MD) CAD (coronary artery disease) Colonic mass COPD (chronic obstructive pulmonary disease) History of prostate cancer HLD (hyperlipidemia) HTN (hypertension) Lesion of liver Myocardial infarction Surgical History History of prostate surgery Social History Household Members: Family Household Members Other:: LIVES WITH AND SON Housing: House Do you presently have visiting nurse or other home services: No Alcohol intake: never Smoking Status: Former smoker Smoked in Last 30 Days: No Patient Interested in Nicotine Replacement: No Second Hand Smoke Exposure: No Use of substances other than those prescribed or required for medical reasons: No Currently Displaying Signs/Symptoms of Drug Intoxication Withdrawal: No Any prior treatment program specific to substance use: No Have you been hit, kicked, punched, or otherwise hurt by someone within the past year? If so, by whom?: No Do you feel safe in your current relationship?: Yes Is there a partner from a previous relationship who is making you feel unsafe now?: No Are you made to feel afraid or neglected: No Advance Directives: No Advance Directives Information Provided: Yes Do you have thoughts of harming others: None Do you have a plan to hurt others: No Plan Recently lost weight without trying: Unsure Eating poorly because of decreased appetite: Yes Nutrition Risks: Poor intake 0-25% >4 days Poor oral hygiene: No Meds Allergies Allergy/AdvReac Type Severity Reaction Status Date / Time No Known Allergies Allergy Mild NONE Verified 05/23/20 11:39 Active Medications: Current Medications Generic Name Dose Route Start Last Admin Trade Name Axel PRN Reason Stop Dose Admin Lactated Ringer's 1,000 mls @ 100 mls/hr 06/26/20 01:15 06/26/20 01:30 Lr IVCONT 100 mls/hr .Q10H KUSUM Administration Morphine Sulfate 2 mg 06/26/20 01:01 Morphine Sulfate 2 Mg/Ml Cartridge IVPUSH Q3H PRN Chest Pain Pharmacy Consult 1 each 06/26/20 00:10 Consult Rx Perform Med Rec MISCELLANE ONCE PRN Consult order Sodium Chloride 3 ml 06/26/20 08:00 0.9 % Sodium Chloride Flush 3 Ml Syringe IVFLUSH QSHIFT [facility] Home Medications Medication Instructions Recorded Confirmed Last Taken Type albuterol sulfate 2 puff PO Q4H PRN 06/26/20 06/26/20 Unknown History metoprolol succinate 1 tab PO DAILY 06/26/20 06/26/20 06/25/20 History simvastatin 1 tab PO DAILY 06/26/20 06/26/20 06/25/20 History Physical Exam Vital Signs and Narrative: Vital Signs: Last Vital Signs Temp 97.6 F 06/26/20 07:37 Pulse 81 06/26/20 07:37 Resp 18 06/26/20 07:37 BP 133/65 06/26/20 07:37 Pulse Ox 98 06/26/20 07:37 Body Mass Index 18.4 Constitutional Awake and Alert, No apparent distress, chectic Neck Supple, No lymphadenopathy Cardiovascular RRR, No M/R/G, S1 S2, No S3 S4, No pedal edema Respiratory Lungs clear, No respiratory distress Gastrointestinal Non tender, Non-distended, non tender Skin No rash Neurological Alert & oriented x3 Psychological Appropriate affect Results Labs CBC and Chem 7: 06/25/20 22:04 06/25/20 22:04 Labs: Laboratory Results - last 24 hr 06/25/20 06/25/20 06/25/20 22:04 22:04 22:04 MCV 98.3 H MCH 31.4 MCHC 32.0 RDW 17.2 H Plt Count 200 MPV 11.7 Immature Gran % (Auto) 0.4 Neut % (Auto) 85.5 H Lymph % (Auto) 5.6 L [place] % (Auto) 7.9 Eos % (Auto) 0.5 Baso % (Auto) 0.1 Lymph # (Auto) 0.7 L [place] # (Auto) 1.0 Eos # (Auto) 0.1 Baso # (Auto) 0.0 Abs Immat Gran (auto) 0.05 H Absolute Neuts (auto) 11.1 H Absolute Nucleated RBC 0.000 Nucleated RBC % (auto) 0.0 PT 17.8 H D INR 1.5 H Anion Gap 18 Estim Creat Clear Calc 45.6 Estimated GFR > 60 Random Glucose 80 Calcium 9.2 Total Bilirubin 2.4 H Direct Bilirubin 1.8 H AST 54 H ALT 33 Alkaline Phosphatase 624 H Total Protein 6.3 L Albumin 3.2 L Lipase Urine Color Urine Appearance Urine pH Ur Specific [place] Urine Protein Urine Glucose (UA) Urine Ketones Urine Blood Urine Nitrite Ur Leukocyte Esterase Urine RBC Urine WBC Ur Squamous Epith Cells Amorphous Sediment Urine Bacteria Hyaline Casts Urine Mucus Stool Occult Blood COVID-19 ([facility]) [facility]-[employer] [facility] 06/25/20 06/26/20 06/26/20 22:04 00:18 00:18 MCV MCH MCHC RDW Plt Count MPV Immature Gran % (Auto) Neut % (Auto) Lymph % (Auto) [place] % (Auto) Eos % (Auto) Baso % (Auto) Lymph # (Auto) [place] # (Auto) Eos # (Auto) Baso # (Auto) Abs Immat Gran (auto) Absolute Neuts (auto) Absolute Nucleated RBC Nucleated RBC % (auto) PT INR Anion Gap Estim Creat Clear Calc Estimated GFR Random Glucose Calcium Total Bilirubin Direct Bilirubin AST ALT Alkaline Phosphatase Total Protein Albumin Lipase < 4 L Urine Color Urine Appearance Urine pH Ur Specific [place] Urine Protein Urine Glucose (UA) Urine Ketones Urine Blood Urine Nitrite Ur Leukocyte Esterase Urine RBC Urine WBC Ur Squamous Epith Cells Amorphous Sediment Urine Bacteria Hyaline Casts Urine Mucus Stool Occult Blood NEGATIVE COVID-19 ([facility]ON) Negative COVID-[employer] See Note 06/26/20 00:21 MCV MCH MCHC RDW Plt Count MPV Immature Gran % (Auto) Neut % (Auto) Lymph % (Auto) [place] % (Auto) Eos % (Auto) Baso % (Auto) Lymph # (Auto) [place] # (Auto) Eos # (Auto) Baso # (Auto) Abs Immat Gran (auto) Absolute Neuts (auto) Absolute Nucleated RBC Nucleated RBC % (auto) PT INR Anion Gap Estim Creat Clear Calc Estimated GFR Random Glucose Calcium Total Bilirubin Direct Bilirubin AST ALT Alkaline Phosphatase Total Protein Albumin Lipase Urine Color DARK YELLOW Urine Appearance CLEAR Urine pH 5.5 Ur Specific [place] 1.015 Urine Protein TRACE Urine Glucose (UA) NEG Urine Ketones 15 Urine Blood TRACE Urine Nitrite NEG Ur Leukocyte Esterase NEG Urine RBC 1-4 Urine WBC 0-2 Ur Squamous Epith Cells NONE Amorphous Sediment 1+ Urine Bacteria NONE Hyaline Casts 5-9 Urine Mucus 1+ Stool Occult Blood COVID-19 ([facility]ON) COVID-19 Clin Com Imaging Radiologist's Impressions: Impressions Abdomen/Pelvis CT 06/25/20 21:24 IMPRESSION: 1. Innumerable masses throughout the liver consistent with metastatic disease. 2. Intussusception at the hepatic flexure involving the cecum and terminal ileum. Thickening of the cecal wall. Given the presence of the metastatic lesions neoplasm of colon is suspected. 3. Small volume of abdominal ascites. 4. Stable infrarenal abdominal aortic aneurysm. Recommend continued follow-up at 6 months. 5. Status post prostatectomy and resection of seminal vesicles. Small bilateral hydrocele and scrotal sac. 6. Emphysematous change of lungs. This critical result was discussed with Dr. Flores on 06/25/2020, 11:35 PM and it was ascertained that the content and urgency of the report was understood at the time of direct communication. Assessment and Plan (1) Colon cancer metastasized to liver: Status: Acute (2) COPD (chronic obstructive pulmonary disease): Status: Inactive (3) Moderate protein-calorie malnutrition: Status: Acute (4) Unintentional weight loss: Status: Acute 84 year old male with history of COPD, history of prostate cancer 20 years ago and don't believe he's ever had colonocopy is here with abdominal, anorexia and unintentional 15 Ib weight loss over the last 3 weeks and is found to have finding on CT consistent with liver met of likely colon origin, in additional to Intussusception at the hepatic flexure involving the cecum and terminal ileum. 1. Colon cancer with met to liver Intussusception Management per surgery Will seek cardiology advise on preop camila given prior history of post TX and no regular follow upsl, althgough I seem to think moderate to high risk . repeat ECG for proglonged QTc. Presently without angina or heart failure symptoms 2. COPD-no acute exacerbation, inhalers PRN 3. Moderate protein calory malnutrition--ensure when able to eat, nutrition conuslt 4. HTN/CAD--continue Metoprolol 5. HLD--Simvastatin or equivalent
[2020-06-26] MEDS: 0.9 % Sodium Chloride Flush 3 ML SYRINGE IVFLUSH (08:28)
--- NOTE | 2020-06-26 08:48 | PM.HPGS ---
History of Present Illness History of Present Illness Date of Service: 06/28/20 Chief complaint: Cecal Mass, prolonged QTc Narrative: Magno Kilgore is a 84 year old male who came to the ED last night ebcause of abdominal pain mostly on the left lower quadrant. He says this has been intermittent for over 3 months now althougn he says he actually has noticed this for 'a couple of years . He says an episode yesterday was severe. He denies any vomitting. He says he has had diarrhea over 2 weeks. He says he has been losing weight steadily over a few months and feels he has lost about 15 lbs in a month. He says he has never had a colonoscopy before as he had always refused this. He denies overt blood per rectum. He deneis any abdominal pain or discomfort now. He says he is hungry as well. He does not seem to be a very good historian although he answers some questions well. He says he lives at home and takes care of his who is chronically ill. He says he does not really have any other family involved in his care. He has COPD but is not on home O2. Review of Systems Constitutional: Constitutional: Denies chills, Denies fever(s), Reports lethargy and Reports weight loss Cardiovascular: Cardiovascular: Denies chest pain, Denies dyspnea and Denies dyspnea on exertion Respiratory: Respiratory: Denies cough, Denies dyspnea and Denies dyspnea on exertion Gastrointestinal: Gastrointestinal: Denies hematochezia, Denies change in bowel habits and Reports diarrhea Genitourinary: Genitourinary: Denies hematuria and Denies difficulty urinating Musculoskeletal: Musculoskeletal: Denies back pain and Denies limited range of motion Neurologic: Denies focal weakness and Denies convulsions Psychiatric: Psychiatric: Denies depression and Denies mood swings [facility] Past Medical History Medical History (Updated 06/26/20 @ 13:33 by Lizzy Ramirez MD) CAD (coronary artery disease) Colonic mass COPD (chronic obstructive pulmonary disease) History of prostate cancer HLD (hyperlipidemia) HTN (hypertension) Lesion of liver Myocardial infarction Surgical History Surgical History (Updated 06/26/20 @ 13:33 by Lizzy Ramirez MD) History of prostate surgery Social History Social History Household Members: Family Household Members Other:: LIVES WITH AND SON Housing: House Do you presently have visiting nurse or other home services: No Alcohol intake: never Smoking Status: Former smoker Smoked in Last 30 Days: No Patient Interested in Nicotine Replacement: No Second Hand Smoke Exposure: No Use of substances other than those prescribed or required for medical reasons: No Currently Displaying Signs/Symptoms of Drug Intoxication Withdrawal: No Any prior treatment program specific to substance use: No Have you been hit, kicked, punched, or otherwise hurt by someone within the past year? If so, by whom?: No Do you feel safe in your current relationship?: Yes Is there a partner from a previous relationship who is making you feel unsafe now?: No Are you made to feel afraid or neglected: No Advance Directives: No Advance Directives Information Provided: Yes Do you have thoughts of harming others: None Do you have a plan to hurt others: No Plan Recently lost weight without trying: Unsure Eating poorly because of decreased appetite: Yes Nutrition Risks: Poor intake 0-25% >4 days Poor oral hygiene: No service: Yes Current occupational status: retired [employer] Allergies Allergy/AdvReac Type Severity Reaction Status Date / Time No Known Allergies Allergy Mild NONE Verified 05/23/20 11:39 Active Medications: Current Medications Generic Name Dose Route Start Last Admin Trade Name Freq PRN Reason Stop Dose Admin Lactated Ringer's 1,000 mls @ 100 mls/hr 06/26/20 01:15 06/26/20 01:30 Lr IVCONT 100 mls/hr .Q10H KUSUM Administration Morphine Sulfate 2 mg 06/26/20 01:01 Morphine Sulfate 2 Mg/Ml Cartridge IVPUSH Q3H PRN Chest Pain Pharmacy Consult 1 each 06/26/20 00:10 Consult Rx Perform Med Rec MISCELLANE ONCE PRN Consult order Sodium Chloride 3 ml 06/26/20 08:00 06/26/20 08:28 0.9 % Sodium Chloride Flush 3 Ml Syringe IVFLUSH 3 ml QSHIFT KUSUM Administration Home Medications Medication Instructions Recorded Confirmed Last Taken Type albuterol sulfate 2 puff PO Q4H PRN 06/26/20 06/26/20 Unknown History metoprolol succinate 1 tab PO DAILY 06/26/20 06/26/20 06/25/20 History simvastatin 1 tab PO DAILY 06/26/20 06/26/20 06/25/20 History Physical Exam Vital Signs: Vital Signs: Last Vital Signs Temp 97.6 F 06/26/20 07:37 Pulse 81 06/26/20 07:37 Resp 18 06/26/20 07:37 BP 133/65 06/26/20 07:37 Pulse Ox 98 06/26/20 07:37 Body Mass Index 18.4 Const: Other: appears very frail, near-cachectic General: comfortable and no acute distress Orientation/consciousness: patient oriented x3 Neck: Neck: Yes no lymphadenopathy Resp: Auscultation: clear to auscultation bilaterally Cardio: Rhythm: regular rhythm GI: Other: some fullness on right abdomen but nontender Palpation (GI): Soft to palpation, nontender and no guarding Neuro: General: patient oriented x3 Results Results Labs: Short CBC 06/25/20 Range/Units 22:04 WBC 13.0 H (4.8-10.8) X10*3/uL Hgb 12.7 L (14.0-18.0) g/dl Hct 39.7 L (42-52) % Plt Count 200 (160-400) X10*3/uL BMP 06/25/20 22:04 Sodium 142 Potassium 4.6 Chloride 101 Carbon Dioxide 28 BUN 19 H Creatinine 0.78 Calcium 9.2 Liver Function 06/25/20 Range/Units 22:04 Total Bilirubin 2.4 H (0.0-1.0) mg/dL Direct Bilirubin 1.8 H (0.0-0.5) mg/dL AST 54 H (5-37) U/L ALT 33 (0-40) U/L Alkaline Phosphatase 624 H (39-117) U/L Albumin 3.2 L (3.5-5.0) g/dL Urine 06/26/20 Range/Units 00:21 Urine Color DARK YELLOW Urine Appearance CLEAR Urine pH 5.5 (5.0-8.0) Ur Specific [place] 1.015 (1.005-1.025) Urine Protein TRACE (NEG-TRACE) MG/DL Urine Glucose (UA) NEG (NEG) MG/DL Abdomen CT scan report/results: report reviewed and image reviewed CT scan - pelvis: report reviewed and image reviewed Assessment and Plan (1) Colonic mass: Status: Acute He has been having chronic abdominal pain. weight loss and decreasing level of function. I have reviewed his CT scan, and this suggests a large mass in the right /colon cecum that appeared to intussuscept as well. There is extensive metastatic disease in the liver and as a matter of fact, most of the liver may actually be involved with metastatic lesions already. There is no evidence of intestinal obstruction. Overall clinical picture is consistent with colon cancer with liver metastases. I explained this to him. I will have the Oncologist see him for opinion with regards to further management. He may need a biopsy of the liver lesion for confirmation of diagnosis. He is not obstructed at this time. Surgical resection if done will be palliative and unlikely to affect overall survival unless his metastatic disease improves with treatment. Furthermore, he does not have an good baseline level of function. I have discussed these scenarios with him. He is currently without pain. He is tolerating clear liquids and appears comfortable.
--- NOTE | 2020-06-26 10:10 | PM.CNCAR ---
History of Present Illness History of Present Illness Date of Service: 06/26/20 Requesting physician: Levy [facility] Chief complaint: Cecal Mass, prolonged QTc Narrative: 84-year-old gentleman who is [facility] abdominal pain and CT showing colonic mass with concern for malignancy with liver metastasis. We have been asked to see him because he has prolonged QTC on the EKG. He has no palpitation or dizziness. No significant arrhythmia noticed. He has background of myocardial infarction which happened 20 years ago. He is describing that he was at [facility] and was medically managed. He has EKG is showing inferior Q-waves. He is denying any chest pain but has some dyspnea on exertion. He is quite frail. EKG 06/25/2020 showing sinus rhythm, inferior infarct, prolonged QT interval of 503 milliseconds. Repeat EKG done today showing sinus rhythm, inferior infarct, QT interval of 476 milliseconds. Review of Systems Review of Systems: No pain Yes all other systems are reviewed and are negative [facility] Past Medical History Medical History (Updated 06/26/20 @ 13:33 by Lizzy Ramirez MD) CAD (coronary artery disease) Colonic mass COPD (chronic obstructive pulmonary disease) History of prostate cancer HLD (hyperlipidemia) HTN (hypertension) Lesion of liver Myocardial infarction Surgical History Surgical History (Updated 06/26/20 @ 13:33 by Lizzy Ramirez MD) History of prostate surgery Social History Social History Household Members: Family Household Members Other:: LIVES WITH AND SON Housing: House Do you presently have visiting nurse or other home services: No Alcohol intake: never Smoking Status: Former smoker Smoked in Last 30 Days: No Patient Interested in Nicotine Replacement: No Second Hand Smoke Exposure: No Use of substances other than those prescribed or required for medical reasons: No Currently Displaying Signs/Symptoms of Drug Intoxication Withdrawal: No Any prior treatment program specific to substance use: No Have you been hit, kicked, punched, or otherwise hurt by someone within the past year? If so, by whom?: No Do you feel safe in your current relationship?: Yes Is there a partner from a previous relationship who is making you feel unsafe now?: No Are you made to feel afraid or neglected: No Advance Directives: No Advance Directives Information Provided: Yes Do you have thoughts of harming others: None Do you have a plan to hurt others: No Plan Recently lost weight without trying: Unsure Eating poorly because of decreased appetite: Yes Nutrition Risks: Poor intake 0-25% >4 days Poor oral hygiene: No service: Yes Current occupational status: retired [employer] Allergies Allergy/AdvReac Type Severity Reaction Status Date / Time No Known Allergies Allergy Mild NONE Verified 05/23/20 11:39 Active Medications: Current Medications Generic Name Dose Route Start Last Admin Trade Name Axel PRN Reason Stop Dose Admin Lactated Ringer's 1,000 mls @ 100 mls/hr 06/26/20 01:15 06/26/20 01:30 Lr IVCONT 100 mls/hr .Q10H KUSUM Administration Morphine Sulfate 2 mg 06/26/20 01:01 Morphine Sulfate 2 Mg/Ml Cartridge IVPUSH Q3H PRN Chest Pain Pharmacy Consult 1 each 06/26/20 00:10 Consult Rx Perform Med Rec MISCELLANE ONCE PRN Consult order Sodium Chloride 3 ml 06/26/20 08:00 06/26/20 08:28 0.9 % Sodium Chloride Flush 3 Ml Syringe IVFLUSH 3 ml QSHIFT KUSUM Administration Home Medications Medication Instructions Recorded Confirmed Last Taken Type albuterol sulfate 2 puff PO Q4H PRN 06/26/20 06/26/20 Unknown History metoprolol succinate 1 tab PO DAILY 06/26/20 06/26/20 06/25/20 History simvastatin 1 tab PO DAILY 06/26/20 06/26/20 06/25/20 History Physical Exam Vital Signs: Vital Signs: Last Vital Signs Temp 97.6 F 06/26/20 07:37 Pulse 81 06/26/20 07:37 Resp 18 06/26/20 07:37 BP 133/65 06/26/20 07:37 Pulse Ox 98 06/26/20 07:37 Body Mass Index 18.4 GENERAL APPEARANCE: in no acute distress, pleasant. Frail. NECK: no carotid bruit, no jugular venous distention. SKIN: no suspicious lesions, warm and dry. HEART: no murmurs, regular rate and rhythm. LUNGS: clear to auscultation bilaterally. ABDOMEN: soft, nontender. EXTREMITIES: no edema. PERIPHERAL PULSES: equal. NEUROLOGIC: No gross deficits, AAO X 3 Results Labs and Meds Result diagrams: 06/25/20 22:04 06/25/20 22:04 Lab results: Laboratory Results - last 24 hr 06/25/20 06/25/20 06/25/20 22:04 22:04 22:04 WBC 13.0 H RBC 4.04 L Hgb 12.7 L Hct 39.7 L MCV 98.3 H MCH 31.4 MCHC 32.0 RDW 17.2 H Plt Count 200 MPV 11.7 Immature Gran % (Auto) 0.4 Neut % (Auto) 85.5 H Lymph % (Auto) 5.6 L [place] % (Auto) 7.9 Eos % (Auto) 0.5 Baso % (Auto) 0.1 Lymph # (Auto) 0.7 L [place] # (Auto) 1.0 Eos # (Auto) 0.1 Baso # (Auto) 0.0 Abs Immat Gran (auto) 0.05 H Absolute Neuts (auto) 11.1 H Absolute Nucleated RBC 0.000 Nucleated RBC % (auto) 0.0 PT 17.8 H D INR 1.5 H Sodium 142 Potassium 4.6 Chloride 101 Carbon Dioxide 28 Anion Gap 18 BUN 19 H Creatinine 0.78 Estim Creat Clear Calc 45.6 Estimated GFR > 60 Random Glucose 80 Calcium 9.2 Total Bilirubin 2.4 H Direct Bilirubin 1.8 H AST 54 H ALT 33 Alkaline Phosphatase 624 H Total Protein 6.3 L Albumin 3.2 L Lipase Urine Color Urine Appearance Urine pH Ur Specific [place] Urine Protein Urine Glucose (UA) Urine Ketones Urine Blood Urine Nitrite Ur Leukocyte Esterase Urine RBC Urine WBC Ur Squamous Epith Cells Amorphous Sediment Urine Bacteria Hyaline Casts Urine Mucus Stool Occult Blood COVID-19 (LEON) COVID-19 Clin Com 06/25/20 06/26/20 06/26/20 22:04 00:18 00:18 WBC RBC Hgb Hct MCV MCH MCHC RDW Plt Count MPV Immature Gran % (Auto) Neut % (Auto) Lymph % (Auto) [place] % (Auto) Eos % (Auto) Baso % (Auto) Lymph # (Auto) [place] # (Auto) Eos # (Auto) Baso # (Auto) Abs Immat Gran (auto) Absolute Neuts (auto) Absolute Nucleated RBC Nucleated RBC % (auto) PT INR Sodium Potassium Chloride Carbon Dioxide Anion Gap BUN Creatinine Estim Creat Clear Calc Estimated GFR Random Glucose Calcium Total Bilirubin Direct Bilirubin AST ALT Alkaline Phosphatase Total Protein Albumin Lipase < 4 L Urine Color Urine Appearance Urine pH Ur Specific [place] Urine Protein Urine Glucose (UA) Urine Ketones Urine Blood Urine Nitrite Ur Leukocyte Esterase Urine RBC Urine WBC Ur Squamous Epith Cells Amorphous Sediment Urine Bacteria Hyaline Casts Urine Mucus Stool Occult Blood NEGATIVE COVID-19 (LEON) Negative COVID-19 Clin Com See Note 06/26/20 00:21 WBC RBC Hgb Hct MCV MCH MCHC RDW Plt Count MPV Immature Gran % (Auto) Neut % (Auto) Lymph % (Auto) [place] % (Auto) Eos % (Auto) Baso % (Auto) Lymph # (Auto) [place] # (Auto) Eos # (Auto) Baso # (Auto) Abs Immat Gran (auto) Absolute Neuts (auto) Absolute Nucleated RBC Nucleated RBC % (auto) PT INR Sodium Potassium Chloride Carbon Dioxide Anion Gap BUN Creatinine Estim Creat Clear Calc Estimated GFR Random Glucose Calcium Total Bilirubin Direct Bilirubin AST ALT Alkaline Phosphatase Total Protein Albumin Lipase Urine Color DARK YELLOW Urine Appearance CLEAR Urine pH 5.5 Ur Specific [place] 1.015 Urine Protein TRACE Urine Glucose (UA) NEG Urine Ketones 15 Urine Blood TRACE Urine Nitrite NEG Ur Leukocyte Esterase NEG Urine RBC 1-4 Urine WBC 0-2 Ur Squamous Epith Cells NONE Amorphous Sediment 1+ Urine Bacteria NONE Hyaline Casts 5-9 Urine Mucus 1+ Stool Occult Blood COVID-19 (LEON) COVID-19 Clin Com Imaging Radiologist's impression: Impressions Abdomen/Pelvis CT 06/25/20 21:24 IMPRESSION: 1. Innumerable masses throughout the liver consistent with metastatic disease. 2. Intussusception at the hepatic flexure involving the cecum and terminal ileum. Thickening of the cecal wall. Given the presence of the metastatic lesions neoplasm of colon is suspected. 3. Small volume of abdominal ascites. 4. Stable infrarenal abdominal aortic aneurysm. Recommend continued follow-up at 6 months. 5. Status post prostatectomy and resection of seminal vesicles. Small bilateral hydrocele and scrotal sac. 6. Emphysematous change of lungs. This critical result was discussed with Dr. Flores on 06/25/2020, 11:35 PM and it was ascertained that the content and urgency of the report was understood at the time of direct communication. Assessment and Plan (1) Colonic mass: Status: Acute (2) Prolonged QT interval: Status: Acute Pleasant 84 gentleman who is presenting with abdominal pain and CT scan evidence of colonic malignancy with liver metastasis. He is quite frail and malnourished/cachectic. His ECG was showing prolonged QT interval of 503 milliseconds but repeat testing is showing improvement in the QT interval. I am adding magnesium level to see if he is hypomagnesemic. His potassium level is good. Please avoid medications which can prolong QT interval in particular Zofran, Reglan and fluoroquinolones/macrolides. He currently has no nausea. He has history of myocardial infarction and has Q-waves on EKG in the inferior leads. I think we should check echocardiogram to assess for cardiomyopathy. This may help us risk stratify him in case he has to go for surgery. Thank you for allowing me to participate in the care of your patient. Please feel free to contact me if you have any questions.
[2020-06-26 10:20] LABS: Magnesium 2.4 mg/dL (1.6-2.6)
--- NOTE | 2020-06-26 11:16 | PC.NURSE ---
ECG being done at this time
--- NOTE | 2020-06-26 11:53 | MHC.CM.PN ---
CM met with patient at the bedside who states he is independent and lives with and their son. Patient does not have a HCP and declines filling one out today after being educated. Discussed discharge plan, home no services. Patient has own car in parking lot and will transport self home. CM will continue to follow patient for discharge needs.
--- NOTE | 2020-06-26 12:27 | CA_ITS ---
Transthoracic Echocardiogram Patient (Last, First, Middle): Magno Kilgore C Gender: Male Date of : 1935 Age: 84 Procedure Date: 06/26/2020 Procedure Type: Transthoracic Echocardiogram Location: [facility] Height: 157.48 cm Weight: 45.81 kg BSA: 1.43 m2 Heart Rate: bpm BP: 117 / 59 mmHg [employer] Supervisor: JOHN Referring MD: Jaya Greenberg MD Symptoms: Inferior infarct in the past Study Quality: Fair Conclusions: - 1. Low normal LV systolic function with grade 1 diastolic dysfunction with inferior regional wall motion abnormality 2. Normal cardiac valvular Doppler 3. Normal RV systolic pressure 4. No pericardial effusion Findings Left Ventricle Normal left ventricular cavity size. There is normal left ventricular wall thickness. The left ventricular systolic function is low normal. The visually estimated ejection fraction is between 50-55%. Spectral Doppler is indicative of an impaired relaxation filling pattern. E/E prime ratio is <8, consistent with normal filling pressures. Evidence suggests grade I (mild) diastolic dysfunction. Wall Motion Rest Echo Findings The inferoseptal wall, the basal inferior, mid inferior, and basal inferolateral segments are akinetic. All other scored wall segments showed normal motion. Right Ventricle Normal right ventricular cavity size. Atria Both atria are normal in size. Interatrial shunt cannot be excluded. Aortic Valve The aortic valve structure and function is likely normal. There is no aortic valve stenosis. There is no aortic valve regurgitation. Mitral Valve Likely normal mitral valve structure and function. There is trace mitral valve regurgitation. There is no mitral valve stenosis. Pulmonic Valve The pulmonic valve was not well visualized. Tricuspid Valve The right ventricular systolic pressure is 25 mmHg. Normal right atrial pressure. There is no evidence of pulmonary hypertension. Great Vessels All visible segments of the aorta are normal in size. The pulmonary artery was not well visualized. Venous The inferior vena cava is normal in size and collapses greater than 50% with inspiration. Pericardium/Pleural There is no evidence of pericardial effusion. Prior Study Comparison No prior study available for comparison. Measurements 2D Linear Measurements IVSd: 0.75 0.6-0.9/0.6-1.0 cm LVIDd: 3.43 3.9-5.3/4.2-5.9 cm LVIDd Index: 2.40 2.4-3.2/2.2-3.1 cm/m2 LVIDs: 2.44 2.0-3.6 cm LVPWd: 0.78 0.7-1.1 cm Ao Root: 3.20 2.1-3.5 cm LA Diam: 2.30 2.7-3.8/3.0-4.0 cm LAIDs Index: 1.61 1.5-2.3 cm/m2 LV Mass: 84.94 67-162/88-224 g LV Mass Index: 59.40 43-95/49-115 g/m2 LVOT Diam: 2.00 3.0+(-)1.3 cm 2D Systolic Function EF 4C: 53.10 >55% EF 2C: 54.10 >55% EF BiP: 53.90 >55% Mitral Valve MV Pk E: 0.43 MV PK A: 0.77 MV Decel Time: 246.00 E/A: 0.60 E'Lateral: 8.92 E'Medial: 6.53 E/E' Med: 6.60 E/E' Lat: 4.80 PHT: 72.00 MVA PHT: 3.06 Decel Jennings: 1.74 Aortic Valve AoV Pk Ced: 1.28 AoV Mn Ced: 0.77 AoV VTI: 0.25 AoV Pk Grad: 7.00 Aov Mn Grad: 3.00 OLIMPIA Cont.VTI: 1.45 LVOT LVOT Pk Ced: 0.74 LVOT Mn Ced: 0.45 LVOT VTI: 0.11 LVOT Pk Grad: 2.00 LVOT Mn Grad: 1.00 LVOT Diam: 2.00 LVOT Area: 3.14 Diastolic Function MV Pk E: 0.43 MV Pk A: 0.77 E/A: 0.60 E'Medial: 6.53 E/E' Med: 6.60 E' Laterial: 8.92 E/E' Lat: 4.80 Tricuspid Valve TR Pk Ced: 2.33 TR Pk Grad: 22.00 RA Press: 3.00 RVSP: 25.00 Great Vessels Aorta Ao Root-2D: 3.20 2.0-3.7 cm Ao Asc: 2.90 2.1-3.4 cm Updated in Other Vendor System with Status of Final Cornell Rodgers MD electronically signed on 06/27/2020 12:12:41 PM with status of Final
--- NOTE | 2020-06-26 12:36 | MHC.CLN ---
RE: CONSULT PT IS SEVERELY MALNOURISHED PT WITH MODERATELY DEPLETED SUBCUTANEOUS FAT AND MUSCLE MASS WITH BMI 18.4 AND POOR PO WITH 15# WT LOSS X 3 WEEKS DIET RX: C/L-APPROPRIATE RECOMMEND ADDING ENSURE CLEAR TID TO INCREASE KCALS SUPPLEMENT WILL PROVIDE 720KCALS, 24G PROTEIN SEE ALSO NUTRITION ASSESSMENT
--- NOTE | 2020-06-26 13:29 | PM.HEMONCCN ---
Subjective - Subjective Chief complaint: Abdominal pain and weight loss Patient: new to practice Consult date: 06/26/20 Requesting Physician: Dr. Tyler Primary Care Provider: Neeraj Andrew MD HPI - Consult Narrative Reason for consult: Probable metastatic colorectal cancer Narrative: Magno Kilgore is a 84 year old male admitted to [facility] with symptoms of progressive abdominal pain and weight loss. He states that symptoms started about a month ago and rapidly got worse. Evaluation in the ED with CT abdomen /pelvis showed intussusception of right colon at the hepatic flexure. Multiple liver masses consistent with metastasis and thickening in the cecum raising suspicion for metastatic colon cancer. Patient has never had a screening colonoscopy. He has had diarrhea in the recent past. He denies hematochezia or melena. His appetite has been poor but he denies nausea or emesis. No fever or chills. Review of Systems - Constitutional Reports as per HPI, Reports lack of energy, Reports malaise, Reports weight loss - Neurologic Denies focal weakness, Denies convulsions [facility] Medical History: Medical History (Last Updated 06/26/20 @ 09:46 by Levy Fuller MD) CAD (coronary artery disease) Colonic mass COPD (chronic obstructive pulmonary disease) History of prostate cancer HLD (hyperlipidemia) HTN (hypertension) Lesion of liver Myocardial infarction Surgical History: Surgical History (Last Reviewed 06/26/20 @ 08:54 by Manuel Tyler MD) History of prostate surgery Social History: Social History (Last Reviewed 06/26/20 @ 08:54 by Manuel Tyler MD) Living Situation History: Household Members: Family Household Members Other:: LIVES WITH AND SON Housing: House Do you presently have visiting nurse or other home services: No Alcohol History: Alcohol intake: never Tobacco History: Smoking Status: Former smoker Smoked in Last 30 Days: No Patient Interested in Nicotine Replacement: No Second Hand Smoke Exposure: No Substance Use History: Use of substances other than those prescribed or required for medical reasons: No Currently Displaying Signs/Symptoms of Drug Intoxication Withdrawal: No Any prior treatment program specific to substance use: No Domestic Abuse History: Have you been hit, kicked, punched, or otherwise hurt by someone within the past year? If so, by whom?: No Do you feel safe in your current relationship?: Yes Is there a partner from a previous relationship who is making you feel unsafe now?: No Are you made to feel afraid or neglected: No Advance Directives: Advance Directives: No Advance Directives Information Provided: Yes Homicidal Assessment: Do you have thoughts of harming others: None Do you have a plan to hurt others: No Plan Nutrition Assessment: Recently lost weight without trying: Unsure Eating poorly because of decreased appetite: Yes Nutrition Risks: Poor intake 0-25% >4 days Poor oral hygiene: No Occupation Assessmet: service: Yes Current occupational status: retired Smoking status: Former smoker Home Medications and Allergies Current Medications: Current Medications Generic Name Dose Route Start Last Admin Trade Name Freq PRN Reason Stop Dose Admin Lactated Ringer's 1,000 mls @ 100 mls/hr 06/26/20 01:15 06/26/20 11:36 Lr IVCONT 100 mls/hr .Q10H KUSUM Administration Morphine Sulfate 2 mg 06/26/20 01:01 Morphine Sulfate 2 Mg/Ml Cartridge IVPUSH Q3H PRN Chest Pain Pharmacy Consult 1 each 06/26/20 00:10 Consult Rx Perform Med Rec MISCELLANE ONCE PRN Consult order Sodium Chloride 3 ml 06/26/20 08:00 06/26/20 08:28 0.9 % Sodium Chloride Flush 3 Ml Syringe IVFLUSH 3 ml QSHIFT KUSUM Administration Home Medications Medication Instructions Recorded Confirmed Type albuterol sulfate 2 puff PO Q4H PRN 06/26/20 06/26/20 History metoprolol succinate 1 tab PO DAILY 06/26/20 06/26/20 History simvastatin 1 tab PO DAILY 06/26/20 06/26/20 History Allergies Allergy/AdvReac Type Severity Reaction Status Date / Time No Known Allergies Allergy Mild NONE Verified 05/23/20 11:39 Physical Exam Vital signs: Vital Signs Temp 98.5 F 06/26/20 11:45 Pulse 81 06/26/20 11:45 Resp 18 06/26/20 11:45 BP 117/59 L 06/26/20 11:45 Pulse Ox 93 06/26/20 11:45 Intake & Output 06/25/20 06/26/20 06/26/20 18:59 06:59 18:59 Intake Total 1360 / 1360 1000 / 1000 Balance 1360 / 1360 1000 / 1000 Intake: Intake, Oral Amount 360 / 360 Intake, IV Amount 1000 / 1000 1000 / 1000 0.9 % Sodium Chloride 1,000 ml 1000 / 1000 @ 999 mls/hr IVCONT .Q1H1M ONE Rx#:[id number] Lactated Ringers 1,000 ml @ 100 1000 / 1000 mls/hr IVCONT .Q10H KUSUM Rx#: [id number] Other: Last Bowel Movement 06/25/20 Weight 45.813 kg 45.813 kg Weight 45.813 kg - Constitutional Present: no acute distress, chronically ill appearing - Routine HEENT Exam Head: Present: normal inspection Eye: Present: EOMI - Routine Neck Exam Present: supple - Routine Respiratory Exam Present: CTAB - Routine Cardiovascular Exam Cardiovascular: Present: S1, S2 - Routine Abdominal Exam Present: distended, hypoactive bowel sounds - Routine Skin Exam Present: intact Hem/Onc Consult Result - Labs CBC & Chem 7: 06/25/20 22:04 06/25/20 22:04 Labs: Short CBC 06/25/20 Range/Units 22:04 WBC 13.0 H (4.8-10.8) X10*3/uL Hgb 12.7 L (14.0-18.0) g/dl Hct 39.7 L (42-52) % Plt Count 200 (160-400) X10*3/uL BMP 06/25/20 22:04 Sodium 142 Potassium 4.6 Chloride 101 Carbon Dioxide 28 BUN 19 H Creatinine 0.78 Calcium 9.2 Liver Function 06/25/20 Range/Units 22:04 Total Bilirubin 2.4 H (0.0-1.0) mg/dL Direct Bilirubin 1.8 H (0.0-0.5) mg/dL AST 54 H (5-37) U/L ALT 33 (0-40) U/L Alkaline Phosphatase 624 H (39-117) U/L Albumin 3.2 L (3.5-5.0) g/dL Urine 06/26/20 Range/Units 00:21 Urine Color DARK YELLOW Urine Appearance CLEAR Urine pH 5.5 (5.0-8.0) Ur Specific [place] 1.015 (1.005-1.025) Urine Protein TRACE (NEG-TRACE) MG/DL Urine Glucose (UA) NEG (NEG) MG/DL Assessment and Plan (1) Colonic mass Status: Acute This is a 84-year-old male with new onset GI complaints found to have cecal mass and multiple liver masses consistent with metastasis. Probable diagnosis is metastatic colon cancer. I have explained to him that there is palliative systemic treatments for stage IV cancers although they may not be curable. He has had a discussion with his surgeon about surgery to relieve obstruction. He has a past history of prostate cancer, he is a bit concerned about surgery because he had an IN after prostate surgery more than 15 years ago. He has been in good health until recently. 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 He is interested in palliative treatment if it will prolong his life. I thank you for this consultation.
--- NOTE | 2020-06-26 17:17 | PM.EVENT ---
Event Note Date of Service: 06/26/20 Event Note: seen on pm rounds remains comfortable denies pain no n/v abd soft nontender, nondistended clinically not obstructed dw IR - liver biopsy tomorrow explained this to pt - he is hesitant about going ahead with any procedure he says he will decide carol re biopsy - NPO post MN
[2020-06-26] MEDS: Albuterol Sulfate 90 MCG 8 GM INHALER 2 PUFF INHALE (22:29)
[2020-06-27] VITALS (7 sets, daily range): BP systolic 120–139; BP diastolic 62–75; PULSE 86–120; RESP 17–20; TEMP 35.6–36.9; O2SAT 92–96
[2020-06-27] MEDS: Albuterol Sulfate 90 MCG 8 GM INHALER 2 PUFF INHALE ×4 (03:28→18:09)
[2020-06-27] MEDS: Lactated Ringers 1,000 ML 100 ML IVCONT ×2 (08:48→20:26)
--- NOTE | 2020-06-27 09:41 | PM.PNGS ---
Subjective Subjective Date of Service: 06/27/20 Interval history: denies abdominal pain no nausea or vomitting says he feels well occl pain on right p flank Physical Exam Vital Signs: Vital Signs: Last Vital Signs Temp 96.1 F L 06/27/20 07:49 Pulse 95 06/27/20 07:49 Resp 20 06/27/20 07:49 BP 129/67 06/27/20 07:49 Pulse Ox 94 06/27/20 07:49 Body Mass Index 18.4 Chemistry 06/25/20 22:04 Sodium 142 Potassium 4.6 Carbon Dioxide 28 BUN 19 H Creatinine 0.78 Calcium 9.2 Hematology 06/25/20 22:04 WBC 13.0 H Hgb 12.7 L Plt Count 200 Urinalysis 06/26/20 00:21 Urine Color DARK YELLOW Urine Appearance CLEAR Urine pH 5.5 Ur Specific Gravit y 1.015 Urine Protein TRACE Urine Glucose (UA) NEG Urine Ketones 15 Urine Blood TRACE Urine Nitrite NEG Ur Leukocyte Michelle ase NEG Urine RBC 1-4 Urine WBC 0-2 Ur Squamous Epith Cells NONE Hyaline Casts 5-9 Const: Other: appears frail General: comfortable and no acute distress Resp: Effort & Inspection: normal respiratory effort Cardio: Rhythm: regular rhythm GI: Other: mild tenderness RUQ Inspection: No distended Palpation (GI): Soft to palpation, not firm and no guarding Progress Note: A&P Assessment and plan (1) Colon cancer metastasized to liver: Status: Acute Assessment and Plan: looks well clinically not obstructed he says he is wiiling to proceed with biopsy had a long discussion with his daughter Elaina explained to her the likelihood of metastatic colon cancer he may benefit from ileostomy if with impending obstruction as palliation appreciate input from Oncology Fall Risk Details Current Medications: Current Medications Generic Name Dose Route Start Last Admin Trade Name Freq PRN Reason Stop Dose Admin Albuterol Sulfate 2 puff 06/26/20 22:09 06/27/20 07:51 Albuterol Sulfate 90 Mcg 8 Gm Inhaler INHALE 2 puff RQ4H PRN Administration Shortness of Breath/Wheezing Lactated Ringer's 1,000 mls @ 100 mls/hr 06/26/20 01:15 06/27/20 08:48 Lr IVCONT 100 mls/hr .Q10H KUSUM Administration Morphine Sulfate 2 mg 06/26/20 01:01 Morphine Sulfate 2 Mg/Ml Cartridge IVPUSH Q3H PRN Chest Pain Pharmacy Consult 1 each 06/26/20 00:10 Consult Rx Perform Med Rec MISCELLANE ONCE PRN Consult order Sodium Chloride 3 ml 06/26/20 08:00 06/27/20 08:49 0.9 % Sodium Chloride Flush 3 Ml Syringe IVFLUSH Not Given QSHIFT KUSUM Time Spent With Patient Time: Total time spent is greater than 50% in coordination of care (as documented) at patient's floor/unit and/or counseling patient: Time with patient: 15 - 24 minutes
--- NOTE | 2020-06-27 12:11 | MHC.CLN ---
RE: CONSULT PT IS SEVERELY MALNOURISHED PT WITH MODERATELY DEPLETED SUBCUTANEOUS FAT AND MUSCLE MASS WITH BMI 18.4 AND POOR PO WITH 15# WT LOSS X 3 WEEKS DIET RX: NPO WHEN DIET TO RESUME; RECOMMEND RE-STARTING ENSURE CLEAR TID TO INCREASE KCALS SUPPLEMENT WILL PROVIDE 720KCALS, 24G PROTEIN
--- NOTE | 2020-06-27 13:53 | MHC.CM.PN ---
CM assisted patient with completing a HCP, cyrus Delaney [phone]. Copy placed on chart. CM will continue to follow patient for discharge needs.
--- NOTE | 2020-06-27 14:09 | HO.PM.IMPN ---
Subjective Subjective Date of Service: 06/27/20 Interval History: Seen in f/u for liver mets, has some pain but better Review of Systems Gen: no fever Resp: no sob, no cough CV: no chest, no MOELLER, no leg edema GI: abd pain and diarrhea Neuro: No confusion Review of Systems: Yes all other systems are reviewed and are negative Physical Exam Vital Signs: Vital Signs: Last Vital Signs Temp 98.4 F 06/27/20 11:12 Pulse 99 06/27/20 11:12 Resp 18 06/27/20 11:12 BP 120/63 06/27/20 11:12 Pulse Ox 96 06/27/20 11:12 Body Mass Index 18.4 General: AO X 3, no acute distress Resp: CTA bilateral CVS: S1,S2,RRR GI: +BS, NT, no distention Skin: No rash Neuro: motor grossly intact Psych: appropriate affect Objective Data Current Medications Generic Name Dose Route Start Last Admin Trade Name Freq PRN Reason Stop Dose Admin Albuterol Sulfate 2 puff 06/26/20 22:09 06/27/20 13:41 Albuterol Sulfate 90 Mcg 8 Gm Inhaler INHALE 2 puff RQ4H PRN Administration Shortness of Breath/Wheezing Lactated Ringer's 1,000 mls @ 100 mls/hr 06/26/20 01:15 06/27/20 08:48 Lr IVCONT 100 mls/hr .Q10H KUSUM Administration Morphine Sulfate 2 mg 06/26/20 01:01 Morphine Sulfate 2 Mg/Ml Cartridge IVPUSH Q3H PRN Chest Pain Pharmacy Consult 1 each 06/26/20 00:10 Consult Rx Perform Med Rec MISCELLANE ONCE PRN Consult order Sodium Chloride 3 ml 06/26/20 08:00 06/27/20 08:49 0.9 % Sodium Chloride Flush 3 Ml Syringe IVFLUSH Not Given QSHIFT [facility] Labs CBC & Chem 7: 06/25/20 22:04 06/25/20 22:04 Assessment and Plan (1) Colon cancer metastasized to liver: Status: Acute (2) COPD (chronic obstructive pulmonary disease): Status: Inactive (3) Moderate protein-calorie malnutrition: Status: Acute (4) Unintentional weight loss: Status: Acute Assessment and Plan: 84 year old male with history of COPD, history of prostate cancer 20 years ago and don't believe he's ever had colonocopy is here with abdominal, anorexia and unintentional 15 Ib weight loss over the last 3 weeks and is found to have finding on CT consistent with liver met of likely colon origin, in additional to Intussusception at the hepatic flexure involving the cecum and terminal ileum. 1. Colon cancer with met to liver Intussusception Management per surgery get liver bx today Prolonged Qtc shourter on repeat ECG, to avoid meds that can prolong Qtc 2. COPD-no acute exacerbation, inhalers PRN 3. Moderate protein calory malnutrition--ensure when able to eat, nutrition conuslt 4. HTN/CAD--continue Metoprolol 5. HLD--Simvastatin hold to liver disease
--- NOTE | 2020-06-27 17:05 | PM.EVENT ---
Event Note Date of Service: 06/27/20 Event Note: underwent CT biopsy of liver today tolerated procedure well says he feels well denies signfiicant abdl pain abd soft, not distended, not tender await biopsy results pt may not be a candidate for chemotx may benefit from palliative ileostomy for impending obstruction currently not clinically obstructed
[2020-06-28] VITALS (9 sets, daily range): BP systolic 95–133; BP diastolic 62–79; PULSE 66–120; RESP 18–19; TEMP 36.2–37; O2SAT 90–100
[2020-06-28] MEDS: Albuterol Sulfate 90 MCG 8 GM INHALER 2 PUFF INHALE ×3 (02:25→13:20)
[2020-06-28] MEDS: Lactated Ringers 1,000 ML 100 ML IVCONT ×2 (05:49→16:02)
--- NOTE | 2020-06-28 11:31 | MHC.CLN ---
F/U PT IS SEVERELY MALNOURISHED PT WITH MODERATELY DEPLETED SUBCUTANEOUS FAT AND MUSCLE MASS WITH BMI 18.4 AND POOR PO WITH 15# WT LOSS X 3 WEEKS DIET RX: REGULAR-APPROPRIATE RECOMMEND ENSURE TID TO INCREASE KCALS SUPPLEMENT WILL PROVIDE 1020KCALS, 60G PROTEIN MONITOR PO INTAKE CLOSELY
--- NOTE | 2020-06-28 12:56 | PM.PNGS ---
Subjective Subjective Date of Service: 06/28/20 Interval history: Says he feels well Denies nausea or vomiting Tolerating diet Denies significant abdominal pain Physical Exam Vital Signs: Vital Signs: Last Vital Signs Temp 97.8 F 06/28/20 11:21 Pulse 97 06/28/20 11:21 Resp 18 06/28/20 11:21 BP 130/77 06/28/20 11:21 Pulse Ox 96 06/28/20 11:21 Body Mass Index 18.4 Chemistry 06/25/20 22:04 Sodium 142 Potassium 4.6 Carbon Dioxide 28 BUN 19 H Creatinine 0.78 Calcium 9.2 Hematology 06/25/20 22:04 WBC 13.0 H Hgb 12.7 L Plt Count 200 Urinalysis 06/26/20 00:21 Urine Color DARK YELLOW Urine Appearance CLEAR Urine pH 5.5 Ur Specific Gravit y 1.015 Urine Protein TRACE Urine Glucose (UA) NEG Urine Ketones 15 Urine Blood TRACE Urine Nitrite NEG Ur Leukocyte Michelle ase NEG Urine RBC 1-4 Urine WBC 0-2 Ur Squamous Epith Cells NONE Hyaline Casts 5-9 Const: Other: Appears frail General: comfortable and no acute distress Resp: Other: Mild shortness of breath from COPD Cardio: Rhythm: regular rhythm GI: Other: Mild tenderness on the right side Inspection: No distended Palpation (GI): Soft to palpation, not firm and no guarding Progress Note: A&P Assessment and plan (1) Colon cancer metastasized to liver: Status: Acute Assessment and Plan: No problems after CT biopsy of the liver yesterday Good GI function No signs of any bowel obstruction at this time CT scan however does show a bulky mass in the right colon, likely to cause obstruction down the line Await path report but likely that management will palliative as discussed with oncologist Will discuss the option of proceeding with loop ileostomy for diversion in view of likelihood of obstruction down the line Otherwise has a benign exam Admits to periodic shortness of breath because of his COPD Fall Risk Details Current Medications: Current Medications Generic Name Dose Route Start Last Admin Trade Name Freq PRN Reason Stop Dose Admin Albuterol Sulfate 2 puff 06/26/20 22:09 06/28/20 07:28 Albuterol Sulfate 90 Mcg 8 Gm Inhaler INHALE 2 puff RQ4H PRN Administration Shortness of Breath/Wheezing Lactated Ringer's 1,000 mls @ 60 mls/hr 06/26/20 01:15 06/28/20 05:49 Lr IVCONT 100 mls/hr .[id number] KUSUM Administration Morphine Sulfate 2 mg 06/26/20 01:01 Morphine Sulfate 2 Mg/Ml Cartridge IVPUSH Q3H PRN Chest Pain Pharmacy Consult 1 each 06/26/20 00:10 Consult Rx Perform Med Rec MISCELLANE ONCE PRN Consult order Sodium Chloride 3 ml 06/26/20 08:00 06/28/20 07:29 0.9 % Sodium Chloride Flush 3 Ml Syringe IVFLUSH Not Given QSHIFT KUSUM Time Spent With Patient Time: Total time spent is greater than 50% in coordination of care (as documented) at patient's floor/unit and/or counseling patient: Time with patient: 15 - 24 minutes
--- NOTE | 2020-06-28 13:14 | HO.PM.IMPN ---
Subjective Subjective Date of Service: 06/28/20 Interval History: Seen in f/u for liver mets, has some pain and is afraid to eat Review of Systems Gen: no fever Resp: no sob, no cough CV: no chest, no MOELLER, no leg edema GI: abd pain and diarrhea Neuro: No confusion Physical Exam Vital Signs: Vital Signs: Last Vital Signs Temp 97.8 F 06/28/20 11:21 Pulse 97 06/28/20 11:21 Resp 18 06/28/20 11:21 BP 130/77 06/28/20 11:21 Pulse Ox 96 06/28/20 11:21 Body Mass Index 18.4 Constitutional Awake and Alert, No apparent distress Neck Supple, No lymphadenopathy Cardiovascular RRR, No M/R/G, S1 S2, No S3 S4, No pedal edema Respiratory Lungs clear, No respiratory distress Gastrointestinal Non tender, Non-distended Skin No rash Neurological Alert & oriented x3 Psychological Appropriate affect Objective Data Current Medications Generic Name Dose Route Start Last Admin Trade Name Freq PRN Reason Stop Dose Admin Albuterol Sulfate 2 puff 06/26/20 22:09 06/28/20 07:28 Albuterol Sulfate 90 Mcg 8 Gm Inhaler INHALE 2 puff RQ4H PRN Administration Shortness of Breath/Wheezing Lactated Ringer's 1,000 mls @ 60 mls/hr 06/26/20 01:15 06/28/20 05:49 Lr IVCONT 100 mls/hr .[id number] KUSUM Administration Morphine Sulfate 2 mg 06/26/20 01:01 Morphine Sulfate 2 Mg/Ml Cartridge IVPUSH Q3H PRN Chest Pain Pharmacy Consult 1 each 06/26/20 00:10 Consult Rx Perform Med Rec MISCELLANE ONCE PRN Consult order Sodium Chloride 3 ml 06/26/20 08:00 06/28/20 07:29 0.9 % Sodium Chloride Flush 3 Ml Syringe IVFLUSH Not Given QSHIFT [facility] Labs CBC & Chem 7: 06/25/20 22:04 06/25/20 22:04 Assessment and Plan (1) Colon cancer metastasized to liver: Status: Acute (2) COPD (chronic obstructive pulmonary disease): Status: Inactive (3) Moderate protein-calorie malnutrition: Status: Acute (4) Unintentional weight loss: Status: Acute Assessment and Plan: 84 year old male with history of COPD, history of prostate cancer 20 years ago and don't believe he's ever had colonocopy is here with abdominal, anorexia and unintentional 15 Ib weight loss over the last 3 weeks and is found to have finding on CT consistent with liver met of likely colon origin, in additional to Intussusception at the hepatic flexure involving the cecum and terminal ileum. 1. Colon cancer with met to liver Intussusception Management per surgery Liver Bx done on 06/27, willl be seeing oncology, I don't surgery is planned, he has poor baseline functional status and maybe a candidate for hospice pain management Prolonged Qtc shourter on repeat ECG, to avoid meds that can prolong Qtc 2. COPD-no acute exacerbation, inhalers PRN .Add Duoneb Q4 while awake 3. Moderate protein calory malnutrition--ensure when able to eat, nutrition conuslt 4. HTN/CAD--continue Metoprolol 5. HLD--Simvastatin hold to liver disease
[2020-06-28 14:43] LABS: Hematocrit 40.6 % (42-52); Hemoglobin 13.6 g/dl (14.0-18.0); Mean Corpuscular HGB Conc 33.5 g/dl (31.0-36.0); Mean Corpuscular Volume 95.5 fL (80-98); Mean Platelet Volume 12.3 fL (9.4-12.4); Platelet Count 183 X10*3/uL (160-400); Red Blood Count 4.25 X10*6/uL (4.60-5.80); Red Cell Distribution Width 17.8 % (11.0-16.0); White Blood Count 13.5 X10*3/uL (4.8-10.8)
[2020-06-28] MEDS: Albuterol/Iprat 2.5/0.5MG 3 ML AMPUL.NEB INHALE ×2 (15:23→19:57)
--- NOTE | 2020-06-28 15:27 | PM.EVENT ---
Event Note Date of Service: 06/28/20 Event Note: had a long discussion with patient explained to him that he has extensive metastatic disease in the liver, most likely from colon cancer CT biopsy of liver pending he is tolerating diet clinically not obstructed abd remains soft he does have occasional pain Oncology does not feel he will benefit from treatment any intervervention will be palliative I explained to him and his daughter Elaina [phone] about preemptive loop ileostomy in view of eventual colon obstruction; explained technique as well as risks and benefits/alternatives pt does have significant COPD, has frequent short of breath may need to be on vent after general anesthesia Elaina and family will discuss this over the weekend If he wants to proceed with loop ileostomy, I will schedule him on Wednesday
[2020-06-28 15:32] LABS: Anion Gap 17 (12-20); Blood Urea Nitrogen 11 mg/dL (9-16); Calcium 8.4 mg/dL (8.4-10.2); Carbon Dioxide 24 mmol/L (22-29); Chloride 102 mmol/L (96-108); Creatinine Clr Calc Pharmacy 58.4; Estimated Glomerular Filt Rate > 60; Glucose Random 106 mg/dL (60-115); Potassium 3.3 mmol/L (3.3-5.1); Sodium 140 mmol/L (135-145)
[2020-06-28] MEDS: Morphine Sulfate 2 MG/ML CARTRIDGE IVPUSH (17:22)
[2020-06-28] MEDS: 0.9 % Sodium Chloride Flush 3 ML SYRINGE IVFLUSH (20:19)
[2020-06-29] VITALS (11 sets, daily range): BP systolic 97–130; BP diastolic 68–76; PULSE 72–117; RESP 16–18; TEMP 36.1–36.6; O2SAT 95–98
[2020-06-29 05:07] LABS: Hematocrit 39.2 % (42-52); Hemoglobin 12.6 g/dl (14.0-18.0); Mean Corpuscular HGB Conc 32.1 g/dl (31.0-36.0); Mean Corpuscular Hemoglobin 31.2 pg (27.0-33.0); Mean Platelet Volume 12.5 fL (9.4-12.4); Platelet Count 128 X10*3/uL (160-400); Red Blood Count 4.04 X10*6/uL (4.60-5.80); Red Cell Distribution Width 18.1 % (11.0-16.0); White Blood Count 11.9 X10*3/uL (4.8-10.8)
[2020-06-29 05:33] LABS: Anion Gap 13 (12-20); Blood Urea Nitrogen 12 mg/dL (9-16); Calcium 7.9 mg/dL (8.4-10.2); Carbon Dioxide 26 mmol/L (22-29); Chloride 104 mmol/L (96-108); Creatinine Clr Calc Pharmacy 60.3; Estimated Glomerular Filt Rate > 60; Glucose Random 116 mg/dL (60-115); Potassium 3.8 mmol/L (3.3-5.1); Sodium 139 mmol/L (135-145)
[2020-06-29] MEDS: Albuterol/Iprat 2.5/0.5MG 3 ML AMPUL.NEB INHALE ×4 (08:09→21:04)
--- NOTE | 2020-06-29 09:19 | PM.PNGS ---
Subjective Subjective Date of Service: 06/29/20 Interval history: Mr. Kilgore is awake and alert, breathing comfortably on nasal O2, denies any abdominal pain, nausea or vomiting. He is eagerly awaiting possible surgery next week. Physical Exam Vital Signs: Vital Signs: Last Vital Signs Temp 97.4 F 06/29/20 07:31 Pulse 80 06/29/20 08:10 Resp 18 06/29/20 07:31 BP 125/75 06/29/20 07:31 Pulse Ox 96 06/29/20 07:31 Body Mass Index 18.4 Const: General: cooperative and comfortable; No acute distress Nutritional Appearance: cachectic Orientation/consciousness: patient oriented x3 Resp: Other: On nasal O2 Effort & Inspection: normal respiratory effort GI: Other: Soft, firm and upper abdomen, nontender to palpation, no tympany to percussion Neuro: General: patient oriented x3 Extrem: General: Yes no clubbing, cyanosis or edema Progress Note: A&P Assessment and plan (1) Colon cancer metastasized to liver: Status: Acute Assessment and Plan: 84-year-old male patient with metastatic colon carcinoma to liver possibly awaiting palliative procedure due to impending obstruction. Patient denies any new complaints. Fall Risk Details Current Medications: Current Medications Generic Name Dose Route Start Last Admin Trade Name Freq PRN Reason Stop Dose Admin Albuterol Sulfate 2 puff 06/28/20 13:14 Albuterol Sulfate 90 Mcg 8 Gm Inhaler INHALE Q3H PRN Shortness of Breath/Wheezing Albuterol/Ipratropium 3 ml 06/28/20 16:00 06/29/20 08:09 Albuterol/Iprat 2.5/0.5mg 3 Ml Ampul.Neb INHALE 3 ml RQ4H WHILE AWAKE KUSUM Administration Morphine Sulfate 2 mg 06/26/20 01:01 06/28/20 17:22 Morphine Sulfate 2 Mg/Ml Cartridge IVPUSH 2 mg Q3H PRN Administration Chest Pain Morphine Sulfate 2 mg 06/28/20 17:12 Morphine Sulfate 2 Mg/Ml Cartridge IVPUSH Q4H PRN Pain, Severe (Pain Scale 7-10) Pharmacy Consult 1 each 06/26/20 00:10 Consult Rx Perform Med Rec MISCELLANE ONCE PRN Consult order Sodium Chloride 3 ml 06/26/20 08:00 06/28/20 20:19 0.9 % Sodium Chloride Flush 3 Ml Syringe IVFLUSH 3 ml QSHIFT KUSUM Administration Time Spent With Patient Time: Total time spent is greater than 50% in coordination of care (as documented) at patient's floor/unit and/or counseling patient: Time with patient: 15 - 24 minutes
[2020-06-29] MEDS: 0.9 % Sodium Chloride Flush 3 ML SYRINGE IVFLUSH ×3 (09:40→21:22)
[2020-06-29] MEDS: Morphine Sulfate 2 MG/ML CARTRIDGE IVPUSH ×2 (09:40→14:57)
--- NOTE | 2020-06-29 10:18 | HO.PM.IMPN ---
Subjective Subjective Date of Service: 06/29/20 Interval History: Seen in f/u for liver mets, has some pain but able to eat little Review of Systems Gen: no fever Resp: no sob, no cough CV: no chest, no MOELLER, no leg edema GI: some abd pain Neuro: No confusion Physical Exam Vital Signs: Vital Signs: Last Vital Signs Temp 97.4 F 06/29/20 07:31 Pulse 80 06/29/20 08:10 Resp 16 06/29/20 09:40 BP 125/75 06/29/20 07:31 Pulse Ox 96 06/29/20 07:31 Body Mass Index 18.4 Const: Other: Appears frail General: cooperative, comfortable and no acute distress; No acute distress Nutritional Appearance: cachectic Orientation/consciousness: patient oriented x3 Neck: Neck: Yes no lymphadenopathy Resp: Effort & Inspection: normal respiratory effort Auscultation: clear to auscultation bilaterally Cardio: Rhythm: regular rhythm GI: Other: Soft, firm and upper abdomen, nontender to palpation, no tympany to percussion Inspection: No distended Palpation (GI): Soft to palpation, not firm, nontender and no guarding Neuro: General: patient oriented x3 Extrem: General: Yes no clubbing, cyanosis or edema Objective Data Current Medications Generic Name Dose Route Start Last Admin Trade Name Freq PRN Reason Stop Dose Admin Albuterol Sulfate 2 puff 06/28/20 13:14 Albuterol Sulfate 90 Mcg 8 Gm Inhaler INHALE Q3H PRN Shortness of Breath/Wheezing Albuterol/Ipratropium 3 ml 06/28/20 16:00 06/29/20 08:09 Albuterol/Iprat 2.5/0.5mg 3 Ml Ampul.Neb INHALE 3 ml RQ4H WHILE AWAKE KUSUM Administration Morphine Sulfate 2 mg 06/26/20 01:01 06/28/20 17:22 Morphine Sulfate 2 Mg/Ml Cartridge IVPUSH 2 mg Q3H PRN Administration Chest Pain Morphine Sulfate 2 mg 06/28/20 17:12 06/29/20 09:40 Morphine Sulfate 2 Mg/Ml Cartridge IVPUSH 2 mg Q4H PRN Administration Pain, Severe (Pain Scale 7-10) Pharmacy Consult 1 each 06/26/20 00:10 Consult Rx Perform Med Rec MISCELLANE ONCE PRN Consult order Sodium Chloride 3 ml 06/26/20 08:00 06/29/20 09:40 0.9 % Sodium Chloride Flush 3 Ml Syringe IVFLUSH 3 ml QSHIFT KUSUM Administration Labs CBC & Chem 7: 06/29/20 04:50 06/29/20 04:50 Assessment and Plan (1) Colon cancer metastasized to liver: Status: Acute (2) COPD (chronic obstructive pulmonary disease): Status: Inactive (3) Moderate protein-calorie malnutrition: Status: Acute (4) Unintentional weight loss: Status: Acute Assessment and Plan: 84 year old male with history of COPD, history of prostate cancer 20 years ago and don't believe he's ever had colonocopy is here with abdominal, anorexia and unintentional 15 Ib weight loss over the last 3 weeks and is found to have finding on CT consistent with liver met of likely colon origin, in additional to Intussusception at the hepatic flexure involving the cecum and terminal ileum. 1. Colon cancer with met to liver Intussusception , impending obstruction Management per surgery Liver Bx done on 06/27 Oncology lux seen and may offer possible paliative chem Paliative surgery next week to relieve obstruction pain management poor prognosis Prolonged Qtc shourter on repeat ECG, to avoid meds that can prolong Qtc 2. COPD-no acute exacerbation, inhalers PRN .Add Duoneb Q4 while awake 3. Moderate protein calory malnutrition--ensure when able to eat, nutrition conuslt 4. HTN/CAD--continue Metoprolol 5. HLD--Simvastatin hold to liver disease DVT: add heparin If goes to surgery, high risk due to poor pulmonary functional status
[2020-06-29] MEDS: Heparin Sodium,Porcine 5,000 UNIT/ML VIAL 5000 UNIT SUBCUT (11:53)
[2020-06-29] MEDS: HYDROmorphone HCl 0.5 MG/0.5 ML SYRINGE 0.25 MG IVPUSH ×2 (17:26→21:22)
[2020-06-29] MEDS: guaiFENesin 100 MG/5 ML LIQUID PO (17:27)
[2020-06-30] VITALS (12 sets, daily range): BP systolic 98–127; BP diastolic 57–75; PULSE 92–118; RESP 16–20; TEMP 35.9–36.6; O2SAT 93–99
--- NOTE | 2020-06-30 01:33 | PC.NURSE ---
Pt reported small amount of emesis, light brown in color. Most likely due to little to no appetite recently, along with morphine given for pain. Will continue to monitor.
[2020-06-30] MEDS: HYDROmorphone HCl 0.5 MG/0.5 ML SYRINGE 0.25 MG IVPUSH ×4 (02:13→16:59)
[2020-06-30] MEDS: ondansetron HCL 4 MG/2 ML VIAL IVPUSH ×2 (02:13→07:41)
[2020-06-30] MEDS: Albuterol Sulfate 90 MCG 8 GM INHALER 2 PUFF INHALE (03:15)
[2020-06-30] MEDS: Morphine Sulfate 2 MG/ML CARTRIDGE IVPUSH (03:45)
[2020-06-30] MEDS: 0.9 % Sodium Chloride Flush 3 ML SYRINGE IVFLUSH ×2 (07:42→15:42)
[2020-06-30] MEDS: Albuterol/Iprat 2.5/0.5MG 3 ML AMPUL.NEB INHALE ×4 (08:17→20:33)
--- NOTE | 2020-06-30 09:26 | HO.PM.IMPN ---
Subjective Subjective Date of Service: 06/30/20 Interval History: Seen in f/u for liver mets. Pain is controlled with Dilaudid but porbably needs it more frequently Constitutional Constitutional: Reports as per HPI, Denies chills, Denies fever(s), Reports lethargy, Reports malaise and Reports weight loss Cardiovascular Cardiovascular: Denies chest pain, Denies dyspnea and Denies dyspnea on exertion Respiratory Respiratory: Denies cough, Denies dyspnea and Denies dyspnea on exertion Gastrointestinal Gastrointestinal: Denies hematochezia, Denies change in bowel habits and Reports diarrhea Genitourinary Genitourinary: Denies hematuria and Denies difficulty urinating Musculoskeletal Musculoskeletal: Denies back pain and Denies limited range of motion Neurologic Neurologic: Denies focal weakness and Denies convulsions Psychiatric Psychiatric: Denies depression and Denies mood swings Physical Exam Vital Signs: Vital Signs: Last Vital Signs Temp 96.7 F L 06/30/20 07:42 Pulse 106 H 06/30/20 08:18 Resp 18 06/30/20 07:42 BP 103/74 06/30/20 07:42 Pulse Ox 94 06/30/20 07:42 Body Mass Index 18.4 Const: Other: Appears frail General: cooperative, comfortable and no acute distress; No acute distress Nutritional Appearance: cachectic Orientation/consciousness: patient oriented x3 Neck: Neck: Yes no lymphadenopathy Resp: Other: On nasal O2 Effort & Inspection: normal respiratory effort Auscultation: clear to auscultation bilaterally Cardio: Rhythm: regular rhythm GI: Other: Soft, firm and upper abdomen, nontender to palpation, no tympany to percussion Inspection: No distended Palpation (GI): Soft to palpation, not firm, nontender and no guarding Neuro: General: patient oriented x3 Extrem: General: Yes no clubbing, cyanosis or edema Objective Data Current Medications Generic Name Dose Route Start Last Admin Trade Name Freq PRN Reason Stop Dose Admin Albuterol Sulfate 2 puff 06/28/20 13:14 06/30/20 03:15 Albuterol Sulfate 90 Mcg 8 Gm Inhaler INHALE 2 puff Q3H PRN Administration Shortness of Breath/Wheezing Albuterol/Ipratropium 3 ml 06/28/20 16:00 06/30/20 08:17 Albuterol/Iprat 2.5/0.5mg 3 Ml Ampul.Neb INHALE 3 ml RQ4H WHILE AWAKE KUSUM Administration Guaifenesin 5 ml 06/29/20 16:12 06/29/20 17:27 Guaifenesin 100 Mg/5 Ml Liquid PO 5 ml Q4H PRN Administration Cough Heparin Sodium (Porcine) 5,000 unit 06/29/20 10:30 06/29/20 21:21 Heparin Sodium,Porcine 5,000 Unit/Ml Vial SUBCUT Not Given Q12H KUSUM Hydromorphone HCl 0.25 mg 06/29/20 16:13 06/30/20 06:19 Hydromorphone Hcl 0.5 Mg/0.5 Ml Syringe IVPUSH 0.25 mg Q4H PRN Administration Pain, Severe (Pain Scale 7-10) Morphine Sulfate 2 mg 06/26/20 01:01 06/30/20 03:45 Morphine Sulfate 2 Mg/Ml Cartridge IVPUSH 2 mg Q3H PRN Administration Chest Pain Pharmacy Consult 1 each 06/26/20 00:10 Consult Rx Perform Med Rec MISCELLANE ONCE PRN Consult order Sodium Chloride 3 ml 06/26/20 08:00 06/30/20 07:42 0.9 % Sodium Chloride Flush 3 Ml Syringe IVFLUSH 3 ml QSHIFT KUSUM Administration Labs CBC & Chem 7: 06/29/20 04:50 06/29/20 04:50 Assessment and Plan (1) Colon cancer metastasized to liver: Status: Acute (2) COPD (chronic obstructive pulmonary disease): Status: Inactive (3) Moderate protein-calorie malnutrition: Status: Acute (4) Unintentional weight loss: Status: Acute Assessment and Plan: 84 year old male with history of COPD, history of prostate cancer 20 years ago and don't believe he's ever had colonocopy is here with abdominal, anorexia and unintentional 15 Ib weight loss over the last 3 weeks and is found to have finding on CT consistent with liver met of likely colon origin, in additional to Intussusception at the hepatic flexure involving the cecum and terminal ileum. 1. Colon cancer with met to liver associated with abdominal pain Intussusception , impending obstruction Management per surgery Liver Bx done on 06/27--result pending Oncology lux seen and may offer possible paliative chemo Paliative surgery next week to relieve obstruction pain management with dilaudid poor prognosis Prolonged Qtc shorter on repeat ECG, to avoid meds that can prolong Qtc 2. COPD-no acute exacerbation, inhalers PRN .Add Duoneb Q4 while awake 3. Moderate protein calory malnutrition--ensure when able to eat, nutrition conuslt 4. HTN/CAD--continue Metoprolol 5. HLD--Simvastatin hold to liver disease DVT: heparin If goes to surgery, high risk due to poor pulmonary functional status
--- NOTE | 2020-06-30 10:12 | PM.PNGS ---
Subjective Subjective Date of Service: 06/30/20 Interval history: Patient reports feeling tired with not much energy, no new complaints Physical Exam Vital Signs: Vital Signs: Last Vital Signs Temp 96.7 F L 06/30/20 07:42 Pulse 106 H 06/30/20 08:18 Resp 18 06/30/20 07:42 BP 103/74 06/30/20 07:42 Pulse Ox 94 06/30/20 07:42 Body Mass Index 18.4 Const: General: no acute distress, alert and awake Nutritional Appearance: cachectic Orientation/consciousness: patient oriented x3 Resp: Effort & Inspection: normal respiratory effort GI: Other: Tender in the right upper and right lower quadrant without rebound or guarding. Soft, no tympany to percussion Skin: General skin exam: no rashes or lesions noted Neuro: General: patient oriented x3 Extrem: General: Yes no clubbing, cyanosis or edema Progress Note: A&P Assessment and plan (1) Colonic mass: Status: Acute Assessment and Plan: 84-year-old male patient with an metastatic colonic lesion with impending obstruction awaiting possible palliative procedure tomorrow possibly loop ileostomy. Will make patient NPO in anticipation of this procedure. Patient expressed understanding and agrees with the plan. Fall Risk Details Current Medications: Current Medications Generic Name Dose Route Start Last Admin Trade Name Freq PRN Reason Stop Dose Admin Albuterol Sulfate 2 puff 06/28/20 13:14 06/30/20 03:15 Albuterol Sulfate 90 Mcg 8 Gm Inhaler INHALE 2 puff Q3H PRN Administration Shortness of Breath/Wheezing Albuterol/Ipratropium 3 ml 06/28/20 16:00 06/30/20 08:17 Albuterol/Iprat 2.5/0.5mg 3 Ml Ampul.Neb INHALE 3 ml RQ4H WHILE AWAKE KUSUM Administration Guaifenesin 5 ml 06/29/20 16:12 06/29/20 17:27 Guaifenesin 100 Mg/5 Ml Liquid PO 5 ml Q4H PRN Administration Cough Heparin Sodium (Porcine) 5,000 unit 06/29/20 10:30 06/29/20 21:21 Heparin Sodium,Porcine 5,000 Unit/Ml Vial SUBCUT Not Given Q12H KUSUM Hydromorphone HCl 0.25 mg 06/29/20 16:13 06/30/20 06:19 Hydromorphone Hcl 0.5 Mg/0.5 Ml Syringe IVPUSH 0.25 mg Q4H PRN Administration Pain, Severe (Pain Scale 7-10) Morphine Sulfate 2 mg 06/26/20 01:01 06/30/20 03:45 Morphine Sulfate 2 Mg/Ml Cartridge IVPUSH 2 mg Q3H PRN Administration Chest Pain Pharmacy Consult 1 each 06/26/20 00:10 Consult Rx Perform Med Rec MISCELLANE ONCE PRN Consult order Sodium Chloride 3 ml 06/26/20 08:00 06/30/20 07:42 0.9 % Sodium Chloride Flush 3 Ml Syringe IVFLUSH 3 ml QSHIFT KUSUM Administration Time Spent With Patient Time: Total time spent is greater than 50% in coordination of care (as documented) at patient's floor/unit and/or counseling patient: Time with patient: 15 - 24 minutes
[2020-06-30] MEDS: Heparin Sodium,Porcine 5,000 UNIT/ML VIAL 5000 UNIT SUBCUT (11:28)
[2020-07-01] VITALS (17 sets, daily range): BP systolic 86–116; BP diastolic 50–66; PULSE 98–120; RESP 2–20; TEMP 35.5–36.8; O2SAT 94–100
[2020-07-01] MEDS: 0.9 % Sodium Chloride Flush 3 ML SYRINGE IVFLUSH ×3 (00:24→17:20)
[2020-07-01] MEDS: HYDROmorphone HCl 0.5 MG/0.5 ML SYRINGE 0.25 MG IVPUSH ×2 (04:23→10:28)
[2020-07-01] MEDS: Albuterol Sulfate 90 MCG 8 GM INHALER 2 PUFF INHALE ×2 (05:10→19:53)
[2020-07-01 07:04] LABS: Hematocrit 43.2 % (42-52); Hemoglobin 13.8 g/dl (14.0-18.0); Mean Corpuscular HGB Conc 31.9 g/dl (31.0-36.0); Mean Corpuscular Hemoglobin 31.6 pg (27.0-33.0); Mean Corpuscular Volume 98.9 fL (80-98); NRBC Pct Auto 0.2 /100WBC (0.0-0.2); Red Blood Count 4.37 X10*6/uL (4.60-5.80); Red Cell Distribution Width 19.1 % (11.0-16.0); White Blood Count 8.7 X10*3/uL (4.8-10.8)
[2020-07-01 07:05] LABS: PLT ABN DIST 1
[2020-07-01 07:22] LABS: Anion Gap 19 (12-20); Blood Urea Nitrogen 20 mg/dL (9-16); Calcium 8.3 mg/dL (8.4-10.2); Carbon Dioxide 23 mmol/L (22-29); Chloride 105 mmol/L (96-108); Creatinine Clr Calc Pharmacy 54.8; Estimated Glomerular Filt Rate > 60; Glucose Random 78 mg/dL (60-115); Potassium 4.5 mmol/L (3.3-5.1); Sodium 142 mmol/L (135-145)
[2020-07-01] MEDS: Albuterol/Iprat 2.5/0.5MG 3 ML AMPUL.NEB INHALE ×2 (07:38→11:22)
--- NOTE | 2020-07-01 08:21 | PM.EVENT ---
Event Note Date of Service: 07/01/20 Event Note: no new complaints says he is looking forward to have surgery c/o some pain on the right side including lower chest no N/V appears a little SOB abd soft, mildly distended, no significant tenderness, no guarding or rebound large right colon mass, multiple metastatic lesions he wants to proceed with loop ileostomy for palliation He states he wants to be able to have oral intake for a few more months He understands that procedure is not curative I had multiple discussions about the technique procedure as well as the risks including but not limited to bleeding, infections, bowel injury, prolonged need for mechanical ventilation in view of his COPD, obstruction, bowel injury, as well as the benefits and alternatives He also understands that the procedure may not elevate his pain from his metastatic liver disease I had a long discussion as well with his daughter Elaina and I had reviewed with her the above They both agreed to proceed today Patient added on the OR schedule Discussed with anesthesiologist
--- NOTE | 2020-07-01 11:57 | HO.ANESPROP2 ---
[facility] Active Problems Active Problems: All Active Problems (Updated 06/26/20 @ 13:33 by Lizzy Ramirez MD) Prolonged QT interval (Acute) Colonic mass (Acute) HLD (hyperlipidemia) (Acute) HTN (hypertension) (Acute) Unintentional weight loss (Acute) Moderate protein-calorie malnutrition (Acute) Colon cancer metastasized to liver (Acute) Past Medical History Medical History CAD (coronary artery disease) Colonic mass COPD (chronic obstructive pulmonary disease) History of prostate cancer HLD (hyperlipidemia) HTN (hypertension) Lesion of liver Myocardial infarction Surgical History Surgical History History of prostate surgery Social History Social History Household Members: Family Household Members Other:: LIVES WITH AND SON Housing: House Do you presently have visiting nurse or other home services: No Alcohol intake: never Smoking Status: Former smoker Smoked in Last 30 Days: No Patient Interested in Nicotine Replacement: No Second Hand Smoke Exposure: No Use of substances other than those prescribed or required for medical reasons: No Currently Displaying Signs/Symptoms of Drug Intoxication Withdrawal: No Any prior treatment program specific to substance use: No Have you been hit, kicked, punched, or otherwise hurt by someone within the past year? If so, by whom?: No Do you feel safe in your current relationship?: Yes Is there a partner from a previous relationship who is making you feel unsafe now?: No Are you made to feel afraid or neglected: No Advance Directives: No Advance Directives Information Provided: Yes Do you have thoughts of harming others: None Do you have a plan to hurt others: No Plan Recently lost weight without trying: Unsure Eating poorly because of decreased appetite: Yes Nutrition Risks: Poor intake 0-25% >4 days Poor oral hygiene: No service: Yes Current occupational status: retired Meds Allergies Allergy/AdvReac Type Severity Reaction Status Date / Time No Known Allergies Allergy Mild NONE Verified 05/23/20 11:39 Active Medications: Current Medications Generic Name Dose Route Start Last Admin Trade Name Freq PRN Reason Stop Dose Admin Albuterol Sulfate 2 puff 06/28/20 13:14 07/01/20 05:10 Albuterol Sulfate 90 Mcg 8 Gm Inhaler INHALE 2 puff Q3H PRN Administration Shortness of Breath/Wheezing Albuterol/Ipratropium 3 ml 06/28/20 16:00 07/01/20 11:22 Albuterol/Iprat 2.5/0.5mg 3 Ml Ampul.Neb INHALE 3 ml RQ4H WHILE AWAKE KUSUM Administration Guaifenesin 5 ml 06/29/20 16:12 06/29/20 17:27 Guaifenesin 100 Mg/5 Ml Liquid PO 5 ml Q4H PRN Administration Cough Heparin Sodium (Porcine) 5,000 unit 06/29/20 10:30 07/01/20 08:19 Heparin Sodium,Porcine 5,000 Unit/Ml Vial SUBCUT Not Given Q12H KUSUM Hydromorphone HCl 0.25 mg 06/29/20 16:13 07/01/20 10:28 Hydromorphone Hcl 0.5 Mg/0.5 Ml Syringe IVPUSH 0.25 mg Q4H PRN Administration Pain, Severe (Pain Scale 7-10) Pharmacy Consult 1 each 06/26/20 00:10 Consult Rx Perform Med Rec MISCELLANE ONCE PRN Consult order Sodium Chloride 3 ml 06/26/20 08:00 07/01/20 08:28 0.9 % Sodium Chloride Flush 3 Ml Syringe IVFLUSH 3 ml QSHIFT KUSUM Administration Home Medications Medication Instructions Recorded Confirmed Last Taken Type albuterol sulfate 2 puff PO Q4H PRN 06/26/20 06/26/20 Unknown History metoprolol succinate 1 tab PO DAILY 06/26/20 06/26/20 06/25/20 History simvastatin 1 tab PO DAILY 06/26/20 06/26/20 06/25/20 History Exam Exam Date and Time: July 01, 2020 1157 Height,Weight and Vital Signs: Height 5 ft 2 in Weight 45.813 kg Last Vital Signs Temp 96 F L 07/01/20 11:05 Pulse 113 H 07/01/20 11:26 Resp 2 L 07/01/20 11:05 BP 101/60 07/01/20 11:05 Pulse Ox 96 07/01/20 11:05 Pertinent Lab Results Pertinent Lab Results: Laboratory Tests 06/25/20 06/25/20 06/25/20 22:04 22:04 22:04 WBC 13.0 H RBC 4.04 L Hgb 12.7 L Hct 39.7 L MCV 98.3 H MCH 31.4 MCHC 32.0 RDW 17.2 H Plt Count 200 MPV 11.7 Immature Gran % (Auto) 0.4 Neut % (Auto) 85.5 H Lymph % (Auto) 5.6 L [place] % (Auto) 7.9 Eos % (Auto) 0.5 Baso % (Auto) 0.1 Lymph # (Auto) 0.7 L [place] # (Auto) 1.0 Eos # (Auto) 0.1 Baso # (Auto) 0.0 Abs Immat Gran (auto) 0.05 H Absolute Neuts (auto) 11.1 H Absolute Nucleated RBC 0.000 Nucleated RBC % (auto) 0.0 PT 17.8 H D INR 1.5 H Sodium 142 Potassium 4.6 Chloride 101 Carbon Dioxide 28 Anion Gap 18 BUN 19 H Creatinine 0.78 Estim Creat Clear Calc 45.6 Estimated GFR > 60 Random Glucose 80 Calcium 9.2 Magnesium 2.4 Total Bilirubin 2.4 H Direct Bilirubin 1.8 H AST 54 H ALT 33 Alkaline Phosphatase 624 H Total Protein 6.3 L Albumin 3.2 L Lipase Urine Color Urine Appearance Urine pH Ur Specific [place] Urine Protein Urine Glucose (UA) Urine Ketones Urine Blood Urine Nitrite Ur Leukocyte Esterase Urine RBC Urine WBC Ur Squamous Epith Cells Amorphous Sediment Urine Bacteria Hyaline Casts Urine Mucus Stool Occult Blood COVID-19 ([facility]) COVID-19 Clin Com 06/25/20 06/26/20 06/26/20 22:04 00:18 00:18 WBC RBC Hgb Hct MCV MCH MCHC RDW Plt Count MPV Immature Gran % (Auto) Neut % (Auto) Lymph % (Auto) [place] % (Auto) Eos % (Auto) Baso % (Auto) Lymph # (Auto) [place] # (Auto) Eos # (Auto) Baso # (Auto) Abs Immat Gran (auto) Absolute Neuts (auto) Absolute Nucleated RBC Nucleated RBC % (auto) PT INR Sodium Potassium Chloride Carbon Dioxide Anion Gap BUN Creatinine Estim Creat Clear Calc Estimated GFR Random Glucose Calcium Magnesium Total Bilirubin Direct Bilirubin AST ALT Alkaline Phosphatase Total Protein Albumin Lipase < 4 L Urine Color Urine Appearance Urine pH Ur Specific [place] Urine Protein Urine Glucose (UA) Urine Ketones Urine Blood Urine Nitrite Ur Leukocyte Esterase Urine RBC Urine WBC Ur Squamous Epith Cells Amorphous Sediment Urine Bacteria Hyaline Casts Urine Mucus Stool Occult Blood NEGATIVE COVID-19 ([facility]ON) Negative COVID-19 Clin Com See Note 06/26/20 06/28/20 06/28/20 00:21 14:19 14:19 WBC 13.5 H RBC 4.25 L Hgb 13.6 L Hct 40.6 L MCV 95.5 MCH 32.0 MCHC 33.5 RDW 17.8 H Plt Count 183 MPV 12.3 Immature Gran % (Auto) Neut % (Auto) Lymph % (Auto) [place] % (Auto) Eos % (Auto) Baso % (Auto) Lymph # (Auto) [place] # (Auto) Eos # (Auto) Baso # (Auto) Abs Immat Gran (auto) Absolute Neuts (auto) Absolute Nucleated RBC 0.000 Nucleated RBC % (auto) 0.0 PT INR Sodium 140 Potassium 3.3 D Chloride 102 Carbon Dioxide 24 Anion Gap 17 BUN 11 Creatinine 0.61 Estim Creat Clear Calc 58.4 Estimated GFR > 60 Random Glucose 106 Calcium 8.4 D Magnesium Total Bilirubin Direct Bilirubin AST ALT Alkaline Phosphatase Total Protein Albumin Lipase Urine Color DARK YELLOW Urine Appearance CLEAR Urine pH 5.5 Ur Specific [place] 1.015 Urine Protein TRACE Urine Glucose (UA) NEG Urine Ketones 15 Urine Blood TRACE Urine Nitrite NEG Ur Leukocyte Esterase NEG Urine RBC 1-4 Urine WBC 0-2 Ur Squamous Epith Cells NONE Amorphous Sediment 1+ Urine Bacteria NONE Hyaline Casts 5-9 Urine Mucus 1+ Stool Occult Blood COVID-19 ([facility]ON) COVID-19 Clin Com 06/29/20 06/29/20 07/01/20 04:50 04:50 05:52 WBC 11.9 H 8.7 RBC 4.04 L 4.37 L Hgb 12.6 L 13.8 L Hct 39.2 L 43.2 MCV 97.0 98.9 H MCH 31.2 31.6 MCHC 32.1 31.9 RDW 18.1 H 19.1 H Plt Count 128 L D TNP MPV 12.5 H Not Reportable Immature Gran % (Auto) Neut % (Auto) Lymph % (Auto) [place] % (Auto) Eos % (Auto) Baso % (Auto) Lymph # (Auto) [place] # (Auto) Eos # (Auto) Baso # (Auto) Abs Immat Gran (auto) Absolute Neuts (auto) Absolute Nucleated RBC 0.000 0.020 H Nucleated RBC % (auto) 0.0 0.2 PT INR Sodium 139 Potassium 3.8 Chloride 104 Carbon Dioxide 26 Anion Gap 13 BUN 12 Creatinine 0.59 Estim Creat Clear Calc 60.3 Estimated GFR > 60 Random Glucose 116 H Calcium 7.9 L Magnesium Total Bilirubin Direct Bilirubin AST ALT Alkaline Phosphatase Total Protein Albumin Lipase Urine Color Urine Appearance Urine pH Ur Specific [place] Urine Protein Urine Glucose (UA) Urine Ketones Urine Blood Urine Nitrite Ur Leukocyte Esterase Urine RBC Urine WBC Ur Squamous Epith Cells Amorphous Sediment Urine Bacteria Hyaline Casts Urine Mucus Stool Occult Blood COVID-19 (LEON) COVID-19 CellARide 07/01/20 05:52 WBC RBC Hgb Hct MCV MCH MCHC RDW Plt Count MPV Immature Gran % (Auto) Neut % (Auto) Lymph % (Auto) [place] % (Auto) Eos % (Auto) Baso % (Auto) Lymph # (Auto) [place] # (Auto) Eos # (Auto) Baso # (Auto) Abs Immat Gran (auto) Absolute Neuts (auto) Absolute Nucleated RBC Nucleated RBC % (auto) PT INR Sodium 142 Potassium 4.5 Chloride 105 Carbon Dioxide 23 Anion Gap 19 BUN 20 H D Creatinine 0.65 Estim Creat Clear Calc 54.8 Estimated GFR > 60 Random Glucose 78 Calcium 8.3 L Magnesium Total Bilirubin Direct Bilirubin AST ALT Alkaline Phosphatase Total Protein Albumin Lipase Urine Color Urine Appearance Urine pH Ur Specific [place] Urine Protein Urine Glucose (UA) Urine Ketones Urine Blood Urine Nitrite Ur Leukocyte Esterase Urine RBC Urine WBC Ur Squamous Epith Cells Amorphous Sediment Urine Bacteria Hyaline Casts Urine Mucus Stool Occult Blood COVID-19 ([facility]ON) COVID-19 Cerac Com
--- NOTE | 2020-07-01 14:19 | MHC.CLN ---
F/U PT IS CURRENTLY NPO 25% AVG PRIOR TO NPO WHEN DIET TO ADVACNE; RECOMMEND ENSURE TID TO INCREASE KCALS SUPPLEMENT WILL PROVIDE 1020KCALS, 60G PROTEIN MONITOR PO INTAKE CLOSELY
--- NOTE | 2020-07-01 14:52 | MHC.CM.PN ---
NURSE BROOMCORN SCRAPER NOTE ELECTRONIC MEDICAL RECORD REVIEWED ALONG WITH CASE DISCUSSED WITH STAFF NURSE AND ON MULTIPLE DISCIPLINARY ROUNDS, PER DOCUMENTATION; PATIENT IS STILL HAVING SOME PAIN ON THE RIGHT SIDE INCLUDING LOWER CHEST, AND HAS SHORTNESS OF BREATH ABDOMEN SOFT BUT DISTENDED CONTINUE CURRENT PLAN FOR SURGERY TOMORROW WITH ANTICIPATE LOOP ILEOSTOMY PALLIATIVE AND MAKE NPO AFTER MIDNIGHT FOR SURGERY DISCHARGE PLAN CONTINUE TO FOLLOW FOR CHANGING DISCHARGE NEEDS WILL NEED TO ADDRESS NEEDS WITH PATIENT AND FAMILY AFTER SURGERY
--- NOTE | 2020-07-01 15:15 | P.BOP_ITS ---
Brief Operative Note Date of Service: 07/01/20 Pre-op diagnosis: metastatic colon cancer Post-op diagnosis: same Procedure: laparoscopic loop ileostomy Surgeon: Manuel Tyler MD Anesthesia: GETA Was an Associate Research Scientist used for this Procedure?: No Estimated blood loss (mL): 20 Pathology: none sent Condition: stable Disposition: PACU
--- NOTE | 2020-07-01 15:17 | W.PM.OPN ---
Operative Note Operative Note Date of Service: 07/01/20 Narrative: Preop diagnosis: Metastatic colon cancer, right colon Postop diagnosis: The same Procedure: Laparoscopic loop ileostomy Surgeon: Manuel Tyler MD Marine Propulsion Technician: JOSEPH Ochoa student The patient is an 84-year-old male admitted for what he describes as diarrhea with right sided abdominal pain. His CAT scan showed what seemed to be a right colon mass that was intussuscepting but nonobstructing. There was note of heavy metastatic tumor burden in the liver. It was biopsied last week and preliminary report discussed with the pathology showed likely adenocarcinoma from the colon. Since patient was no longer candidate for treatment with chemotherapy as per the oncologist in view of his overall health and significant tumor burden, he wanted to proceed with palliative loop ileostomy in view of impending obstruction. I had multiple discussions with him and his daughter about this procedure as well as the risks, benefits, and alternatives. He said he really wanted to proceed. He was brought to the operating room placed supine on table under general anesthesia via endotracheal tube. A Andrews catheter was inserted. The abdomen was prepped and draped in the usual sterile fashion. A surgical time-out was done. The patient received cefazolin 2 g IV preoperatively. I marked the ideal stoma locations in the left lower quadrant as well as the right lower quadrant. I made a short supraumbilical incision using a blade 15 and this was carried down through through the full-thickness of the skin and subcutaneous fat down to the fascia. The fascia was gently incised in the peritoneum was entered. A Sita port was introduced. Pneumoperitoneum was introduced to a pressure of 15 mm mercury. From here on the rest of the procedure was done under vision with the laparoscope. With laparoscopic visualization using the 30 degree 10 mm scope, I proceeded to insert a 5 mm port in suprapubic margin. We proceeded to then introduce a grasper through this and I gently reflected small bowel loops away from the right lower quadrant. I was able to identify the cecum and just distal to this, the right colon appeared to have what appeared to be an intussusception However the entire segment appeared viable. The liver was noted to have multiple, large metastatic lesions on the surface. With laparoscopic visualization I inserted a 10 mm port in left lower quadrant as another working port. I was able to identify the appendix is well and the terminal ileum and the following this I chose a segment of the distal ileum which we would bring out as a loop ileostomy. Since we had better visualization of the terminal ileum from the left side I decided to bring out the stoma through 1 of the ports on the left side so as to not add another port on the right lower quadrant.. I made a mesenteric window on this segment that I chose to bring out,making sure that we had enough distance away from the terminal ileum. I position a Adelaida drain through this mesenteric window. I pulled this out as a loop around the segment and applied a laparoscopic clamp to close the loop. I then proceeded to bring this [place] drain close to the left lower quadrant port. I removed the port on the left lower quadrant and extended the incision a little bit. I enlarged the fascial opening using [employer] [place] retractors. I was able to accommodate 2 my fingers through the trephine on the abdominal wall. I pulled out the looped Adelaida drain through this incision after removing the port. I dragged the post small bowel with this out through the opening. I inserted a stoma bridge to this mesentery defect and removed the [place] drain. I then re-examined laparoscopically. The loop was seen from within the peritoneum and this was not twisted. This appeared viable as well. I then proceeded to mature the stoma by making a transverse incision on the anterior wall to enter the lumen. I secured the wall of the loop with multiple full-thickness Dexon 3-0 sutures through the full thickness of the wall into the subdermal layer circumferentially. The loop appeared viable. I inserted the laparoscope1 more time and reexamined and I was able to pass my finger through both afferent and efferent openings past the fascial level. I removed all ports after desufflating through the port sites. I closed the fascia of the umbilical incision with a [id number] Dexon 0 stitch. Skin closure was achieved on all incisions in Dexon 4-0 subcuticular in sutures. Steri-Strips and dressings were applied. All incisions were infiltrated with Marcaine 0.5% for postop analgesia. I applied a stoma appliance on the ileostomy site. The procedure was then completed. The patient tolerated the procedure well. No immediate complications were noted. Initial and final counts of sponges and instruments were correct Estimated blood loss about 20 cc. The patient was extubated without difficulty and transferred to the recovery room with stable vital signs.
--- NOTE | 2020-07-01 16:33 | PM.EVENT ---
Event Note Date of Service: 07/01/20 Event Note: Seen postop Underwent laparoscopic loop ileostomy earlier Appears to have good pain control Breathing okay He is awake Stable vital signs Abdomen soft Stoma viable looking Pain management Discussed with patient and daughter Elaina
--- NOTE | 2020-07-01 16:36 | HO.PM.IMPN ---
Subjective Subjective Date of Service: 07/01/20 Interval History: Patient is scheduled for laparoscopic loop ileostomy today, complaining of abdominal pain only with movement, offers no other acute complaints. ROS General no headache, no dizziness no fever chills. CVS no chest pain, no palpitation. Respiratory no cough no sob. Gastrointestinal no nausea,no vomiting, + abdominal pain Physical Exam Vital Signs: Vital Signs: Last Vital Signs Temp 97.3 F 07/01/20 15:20 Pulse 115 H 07/01/20 16:20 Resp 16 07/01/20 16:20 BP 94/54 L 07/01/20 16:20 Pulse Ox 98 07/01/20 16:20 Body Mass Index 18.4 General in no acute distress,frail . Neck is supple no JVD. CVS regular rate rhythm, Respiratory lungs clear to auscultation, no respiratory distress, no wheeze, no rhonchi. Gastrointestinal abdomen soft, mild tender right upper and lower quad, no guarding , no rigidity. Extremities no edema. Neuro nonfocal, speech clear. Skin no rash Objective Data Current Medications Generic Name Dose Route Start Last Admin Trade Name Freq PRN Reason Stop Dose Admin Acetaminophen 650 mg 07/01/20 13:45 Acetaminophen 325 Mg Tablet PO ONCE PRN Pain, Mild (Pain Scale 1-3) Albuterol Sulfate 2 puff 06/28/20 13:14 07/01/20 05:10 Albuterol Sulfate 90 Mcg 8 Gm Inhaler INHALE 2 puff Q3H PRN Administration Shortness of Breath/Wheezing Albuterol/Ipratropium 3 ml 06/28/20 16:00 07/01/20 16:27 Albuterol/Iprat 2.5/0.5mg 3 Ml Ampul.Neb INHALE Not Given RQ4H WHILE AWAKE [facility] Fentanyl 50 mcg 07/01/20 13:45 Fentanyl Citrate/Pf 100 Mcg/2 Ml Vial IVPUSH Q5M PRN Pain, Severe (Pain Scale 7-10) Guaifenesin 5 ml 06/29/20 16:12 06/29/20 17:27 Guaifenesin 100 Mg/5 Ml Liquid PO 5 ml Q4H PRN Administration Cough Heparin Sodium (Porcine) 5,000 unit 06/29/20 10:30 07/01/20 08:19 Heparin Sodium,Porcine 5,000 Unit/Ml Vial SUBCUT Not Given Q12H [facility] Hydromorphone HCl 0.25 mg 06/29/20 16:13 07/01/20 10:28 Hydromorphone Hcl 0.5 Mg/0.5 Ml Syringe IVPUSH 0.25 mg Q4H PRN Administration Pain, Severe (Pain Scale 7-10) Promethazine HCl 12.5 mg/ 50.5 mls @ 202 mls/hr 07/01/20 13:45 Sodium Chloride IV ONCE PRN Nausea and Vomiting Oxycodone HCl 5 mg 07/01/20 13:45 Oxycodone Hcl Immed Release 5 Mg Tablet PO ONCE PRN Pain, Severe (Pain Scale 7-10) Pharmacy Consult 1 each 06/26/20 00:10 Consult Rx Perform Med Rec MISCELLANE ONCE PRN Consult order Sodium Chloride 3 ml 06/26/20 08:00 07/01/20 08:28 0.9 % Sodium Chloride Flush 3 Ml Syringe IVFLUSH 3 ml QSHIFT KUSUM Administration Labs CBC & Chem 7: 07/01/20 05:52 07/01/20 05:52 Assessment and Plan (1) Colon cancer metastasized to liver: Status: Acute (2) Prolonged QT interval: Status: Acute (3) Colonic mass: Status: Acute (4) HLD (hyperlipidemia): Status: Acute (5) HTN (hypertension): Status: Acute (6) Unintentional weight loss: Status: Acute (7) Moderate protein-calorie malnutrition: Status: Acute Assessment and Plan: 84 year old male with history of COPD, history of prostate cancer 20 years ago and don't believe he's ever had colonocopy is here with abdominal, anorexia and unintentional 15 Ib weight loss over the last 3 weeks and is found to have finding on CT consistent with liver met of likely colon origin, in additional to Intussusception at the hepatic flexure involving the cecum and terminal ileum. 1. Colon cancer with met to liver associated with abdominal pain Intussusception , impending obstruction, patient underwent loop ileostomy today by general surgery Liver Bx done on 06/27--result pending Oncology has seen and will make recommendation for possible paliative chemo. Continue pain management with dilaudid, close monitoring of vitals post surgery. Prolonged Qtc improved on repeat ECG, avoid meds that can prolong Qtc 2. COPD-no acute exacerbation,cont. inhalers PRN ,and change Duoneb to Q6 while awake 3. Moderate protein calorie malnutrition--started on clear liq by surgery ,will add clear ensure once tolerate current diet, will also need nutrition consult. 4. HTN/CAD--low blood pressure , Metoprolol on hold. Mild tachycardia likely reflex due to holding metoprolol and due to DuoNeb. 5. HLD--Simvastatin hold to liver disease DVT: heparin
[2020-07-01] MEDS: Heparin Sodium,Porcine 5,000 UNIT/ML VIAL 5000 UNIT SUBCUT (22:13)
[2020-07-02] VITALS (9 sets, daily range): BP systolic 99–164; BP diastolic 51–87; PULSE 71–114; RESP 16–19; TEMP 36.2–36.8; O2SAT 91–100
[2020-07-02] MEDS: Albuterol/Iprat 2.5/0.5MG 3 ML AMPUL.NEB INHALE (07:24)
--- NOTE | 2020-07-02 08:35 | PM.PNGS ---
Subjective Subjective Date of Service: 07/02/20 Interval history: Says he had a good night Comfortable Good pain control Has had good stoma output Physical Exam Vital Signs: Vital Signs: Last Vital Signs Temp 97.4 F 07/02/20 08:00 Pulse 107 H 07/02/20 08:00 Resp 17 07/02/20 08:00 BP 113/57 L 07/02/20 08:00 Pulse Ox 91 L 07/02/20 08:00 Body Mass Index 18.4 Const: Other: Looks frail, cachectic General: No comfortable or no acute distress Resp: Effort & Inspection: normal respiratory effort Cardio: Rhythm: regular rhythm GI: Other: Ileostomy with good output Palpation (GI): Soft to palpation, not firm and no guarding Progress Note: A&P Assessment and plan (1) Colon cancer metastasized to liver: Status: Acute Assessment and Plan: Status post loop ileostomy for palliation Ileostomy function Advance diet Will ask assistant case manager to the family with regards to further plans Daughter involved Fall Risk Details Current Medications: Current Medications Generic Name Dose Route Start Last Admin Trade Name Freq PRN Reason Stop Dose Admin Acetaminophen 650 mg 07/01/20 13:45 Acetaminophen 325 Mg Tablet PO ONCE PRN Pain, Mild (Pain Scale 1-3) Albuterol Sulfate 2 puff 06/28/20 13:14 07/01/20 19:53 Albuterol Sulfate 90 Mcg 8 Gm Inhaler INHALE 2 puff Q3H PRN Administration Shortness of Breath/Wheezing Albuterol/Ipratropium 3 ml 07/01/20 20:00 07/02/20 07:24 Albuterol/Iprat 2.5/0.5mg 3 Ml Ampul.Neb INHALE 3 ml RQID KUSUM Administration Fentanyl 50 mcg 07/01/20 13:45 Fentanyl Citrate/Pf 100 Mcg/2 Ml Vial IVPUSH Q5M PRN Pain, Severe (Pain Scale 7-10) Guaifenesin 5 ml 06/29/20 16:12 06/29/20 17:27 Guaifenesin 100 Mg/5 Ml Liquid PO 5 ml Q4H PRN Administration Cough Heparin Sodium (Porcine) 5,000 unit 06/29/20 10:30 07/01/20 22:13 Heparin Sodium,Porcine 5,000 Unit/Ml Vial SUBCUT 5,000 unit Q12H KUSUM Administration Hydromorphone HCl 0.25 mg 06/29/20 16:13 07/01/20 10:28 Hydromorphone Hcl 0.5 Mg/0.5 Ml Syringe IVPUSH 0.25 mg Q4H PRN Administration Pain, Severe (Pain Scale 7-10) Promethazine HCl 12.5 mg/ 50.5 mls @ 202 mls/hr 07/01/20 13:45 Sodium Chloride IV ONCE PRN Nausea and Vomiting Acetaminophen 1,000 mg in 100 mls @ 400 mls/hr 07/01/20 18:00 07/02/20 06:30 Ofirmev IV Infused Q6H KUSUM Infusion Oxycodone HCl 5 mg 07/01/20 13:45 Oxycodone Hcl Immed Release 5 Mg Tablet PO ONCE PRN Pain, Severe (Pain Scale 7-10) Pharmacy Consult 1 each 06/26/20 00:10 Consult Rx Perform Med Rec MISCELLANE ONCE PRN Consult order Sodium Chloride 3 ml 06/26/20 08:00 07/02/20 00:25 0.9 % Sodium Chloride Flush 3 Ml Syringe IVFLUSH Not Given QSHIFT KUSUM Time Spent With Patient Time: Total time spent is greater than 50% in coordination of care (as documented) at patient's floor/unit and/or counseling patient: Time with patient: 15 - 24 minutes Procedures Date of Service Date of Service: 07/02/20
[2020-07-02] MEDS: 0.9 % Sodium Chloride Flush 3 ML SYRINGE IVFLUSH ×3 (10:00→20:52)
--- NOTE | 2020-07-02 10:20 | HO.POSTANES ---
Post Anesthesia Evaluation Post Anesthesia Evaluation Vital Signs: Vital Signs Temp Pulse Resp BP Pulse Ox 07/02/20 08:00 97.4 F 107 H 17 113/57 L 91 L 07/02/20 07:26 93 07/02/20 04:00 98.2 F 71 18 164/87 H 99 07/02/20 00:00 97.4 F 100 16 115/58 L 100 Anesthesia: General Endotracheal-GETA Mental Status: Awake Pain Control: Satisfactory Nausea/Vomiting: None Hydration: Adequate Anesthesia-Related Issues: No Anes. Related Issues
[2020-07-02] MEDS: Heparin Sodium,Porcine 5,000 UNIT/ML VIAL 5000 UNIT SUBCUT ×2 (10:29→22:07)
[2020-07-02] MEDS: HYDROmorphone HCl 0.5 MG/0.5 ML SYRINGE 0.25 MG IVPUSH ×2 (14:00→20:52)
--- NOTE | 2020-07-02 14:07 | P.PNIM_ITS ---
Subjective Subjective Date of Service: 07/03/20 Interval History: the patient was seen and evaluated this morning Laying in bed, feels comfortable overall Denies any fever, chills or shortness of breath Ostomy is working, he is tolerating diet well No reported other overnight events. Systemic review: No fever, chills or weakness No chest pain, palpitation No shortness of breath or coughing No abdominal pain, No urinary symptoms No any rash or wounds Physical Exam Vital Signs: Vital Signs: Last Vital Signs Temp 97.1 F 07/02/20 11:20 Pulse 114 H 07/02/20 11:20 Resp 19 07/02/20 11:20 BP 99/51 L 07/02/20 11:20 Pulse Ox 96 07/02/20 11:20 Body Mass Index 18.4 Const: Other: Constitutional : Alert, not in distress Neck : Normal inspection, Supple Cardiovascular : RRR, S1 S2, no lower extremity edema Respiratory : Good bilateral air entry, no crackles, wheezes or rhonchi Gastrointestinal: soft, lax, Normal bowel sounds, Non tender, Ostomy inplace wi th no erythema or drianage Skin : Warm/Dry, No rash Neurological : Alert & oriented x3, No focal deficit Objective Data Current Medications Generic Name Dose Route Start Last Admin Trade Name Freq PRN Reason Stop Dose Admin Acetaminophen 650 mg 07/01/20 13:45 Acetaminophen 325 Mg Tablet PO ONCE PRN Pain, Mild (Pain Scale 1-3) Albuterol Sulfate 2 puff 06/28/20 13:14 07/01/20 19:53 Albuterol Sulfate 90 Mcg 8 Gm Inhaler INHALE 2 puff Q3H PRN Administration Shortness of Breath/Wheezing Albuterol/Ipratropium 3 ml 07/01/20 20:00 07/02/20 10:54 Albuterol/Iprat 2.5/0.5mg 3 Ml Ampul.Neb INHALE Not Given RQID KUSUM Fentanyl 50 mcg 07/01/20 13:45 Fentanyl Citrate/Pf 100 Mcg/2 Ml Vial IVPUSH Q5M PRN Pain, Severe (Pain Scale 7-10) Guaifenesin 5 ml 06/29/20 16:12 06/29/20 17:27 Guaifenesin 100 Mg/5 Ml Liquid PO 5 ml Q4H PRN Administration Cough Heparin Sodium (Porcine) 5,000 unit 06/29/20 10:30 07/02/20 10:29 Heparin Sodium,Porcine 5,000 Unit/Ml Vial SUBCUT 5,000 unit Q12H KUSUM Administration Hydromorphone HCl 0.25 mg 06/29/20 16:13 07/02/20 14:00 Hydromorphone Hcl 0.5 Mg/0.5 Ml Syringe IVPUSH 0.25 mg Q4H PRN Administration Pain, Severe (Pain Scale 7-10) Promethazine HCl 12.5 mg/ 50.5 mls @ 202 mls/hr 07/01/20 13:45 Sodium Chloride IV ONCE PRN Nausea and Vomiting Acetaminophen 1,000 mg in 100 mls @ 400 mls/hr 07/01/20 18:00 07/02/20 12:09 Ofirmev IV Infused Q6H KUSUM Infusion Oxycodone HCl 5 mg 07/01/20 13:45 Oxycodone Hcl Immed Release 5 Mg Tablet PO ONCE PRN Pain, Severe (Pain Scale 7-10) Pharmacy Consult 1 each 06/26/20 00:10 Consult Rx Perform Med Rec MISCELLANE ONCE PRN Consult order Sodium Chloride 3 ml 06/26/20 08:00 07/02/20 14:03 0.9 % Sodium Chloride Flush 3 Ml Syringe IVFLUSH 3 ml QSHIFT KUSUM Administration Labs CBC & Chem 7: 07/03/20 05:49 07/03/20 05:49 Assessment and Plan (1) Colon cancer metastasized to liver: Status: Acute (2) Prolonged QT interval: Status: Acute (3) Colonic mass: Status: Acute (4) HLD (hyperlipidemia): Status: Acute (5) HTN (hypertension): Status: Acute (6) Unintentional weight loss: Status: Acute (7) Moderate protein-calorie malnutrition: Status: Acute Assessment and Plan: 84 year old male with history of COPD, history of prostate cancer 20 years ago and don't believe he's ever had colonocopy is here with abdominal, anorexia and unintentional 15 Ib weight loss over the last 3 weeks and is found to have finding on CT consistent with liver met of likely colon origin, in additional to Intussusception at the hepatic flexure involving the cecum and terminal ileum. Colon cancer with met to liver associated with abdominal pain Intussusception , impending obstruction, patient underwent loop ileostomy by general surgery Liver Bx done on 06/27--result pending Oncology has seen and will make recommendation for possible paliative chemo. Continue pain management with dilaudid, close monitoring of vitals post surgery. Prolonged Qtc improved on repeat ECG, avoid meds that can prolong Qtc COPD no acute exacerbation,cont. inhalers PRN ,and change Duoneb to Q6 while awake Moderate protein calorie malnutrition started on clear liq by surgery ,will add clear ensure once tolerate current diet, will also need nutrition consult. HTN/CAD low blood pressure , Metoprolol on hold. Mild tachycardia likely reflex due to holding metoprolol and due to DuoNeb. HLD Simvastatin hold to liver disease DVT: heparin
--- NOTE | 2020-07-02 14:23 | MHC.CM.PN ---
NURSE SR. MERCHANDISE PLANNER NOTE ELECTRONIC MEDICAL RECORD REVIEWED ALONG WITH CASE DISCUSSED ON MULTIPLE DISCIPLINARY ROUNDS CASE ALSO DISCUSSED WITH THE SURGEON . PER DOCUMENTATION PATIENT WITH METASTATIC COLON CANCER S/P 07/01/20 LAPAROSCIIOPIC LOOP ILEOSTOMY PALLIATIVE SO HE CAN STILL TRY TO EATS FOR A FEW MORE MONTHS MET WITH PATIENT PATIENT WISHED TO GO HOME AND HAS FAMILY SUPPORT HE LIVES WITH HIS AND TWO ADULT SONS , ONE SON IS THERE 24 HRS HIS DAUGHTER HERBIE LIVES IN [facility] AND RUNS A DAYCARE. SHE HELP HER MOTHER OUT AND IS WILLING TO HELP HER DAD WELL WHEN SHE DOES NOT HAVE DAYCARE, WE TALKED ABOUT HOW HE WILL NEED 24 HOUR CARE INITIALLY SECONDARY TO BEING DECONDITIONED AND WEAK. DISCHARGE PLAN-HIS WISHES TO GO HOME AND BE WITH HIS FAMILY. HE WILL NEED DAILY VNA FOR NURSING AND SOME PHYSICAL THERAPY WHEN STRONGER AND AT LATER DATE SWITCH OVER TO PALLIATIVE OR HOSPICE CARE. INITIALL REFERRAL SENT TI [facility] , [facility] AND [facility] ALL OF THESE HAVE PALATIVE AND HOSPICE CARE. PCP DR [facility] FOLLOW UP WITH DR SMITH TRANSPORTATION TO BE FURTHER DETERMINED
[2020-07-02] MEDS: Albuterol Sulfate 90 MCG 8 GM INHALER 2 PUFF INHALE ×2 (18:24→21:42)
[2020-07-03] VITALS (10 sets, daily range): BP systolic 89–119; BP diastolic 52–64; PULSE 94–118; RESP 16–19; TEMP 36–36.8; O2SAT 92–98
[2020-07-03] MEDS: HYDROmorphone HCl 0.5 MG/0.5 ML SYRINGE 0.25 MG IVPUSH ×4 (04:21→22:02)
[2020-07-03] MEDS: Albuterol Sulfate 90 MCG 8 GM INHALER 2 PUFF INHALE ×4 (04:41→20:11)
[2020-07-03 07:07] LABS: Hematocrit 43.4 % (42-52); Hemoglobin 14.5 g/dl (14.0-18.0); Mean Corpuscular HGB Conc 33.4 g/dl (31.0-36.0); Mean Corpuscular Hemoglobin 31.7 pg (27.0-33.0); PLT CLUMP 1; Red Blood Count 4.57 X10*6/uL (4.60-5.80); Red Cell Distribution Width 19.9 % (11.0-16.0)
[2020-07-03] MEDS: Albuterol/Iprat 2.5/0.5MG 3 ML AMPUL.NEB INHALE (07:17)
[2020-07-03 07:24] LABS: Anion Gap 13 (12-20); Blood Urea Nitrogen 31 mg/dL (9-16); Carbon Dioxide 27 mmol/L (22-29); Chloride 104 mmol/L (96-108); Creatinine Clr Calc Pharmacy 60.3; Estimated Glomerular Filt Rate > 60; Glucose Random 86 mg/dL (60-115); Potassium 4.1 mmol/L (3.3-5.1); Sodium 140 mmol/L (135-145)
[2020-07-03 07:43] LABS: Calcium 7.8 mg/dL (8.4-10.2)
[2020-07-03 08:03] LABS: Platelet Count 62 X10*3/uL (160-400); White Blood Count 11.5 X10*3/uL (4.8-10.8)
[2020-07-03] MEDS: Heparin Sodium,Porcine 5,000 UNIT/ML VIAL 5000 UNIT SUBCUT ×2 (09:25→21:54)
[2020-07-03] MEDS: 0.9 % Sodium Chloride Flush 3 ML SYRINGE IVFLUSH ×3 (09:32→22:03)
[2020-07-03] MEDS: Metoprolol Succinate ER 12.5 MG HALFTAB.ER.24H PO (09:33)
--- NOTE | 2020-07-03 09:51 | PM.PNGS ---
Subjective Subjective Date of Service: 07/03/20 Interval history: Says he feels okay Tolerating diet Complaints of periodic shortness of breath Has poor appetite - he says he would rather have food from home Physical Exam Vital Signs: Vital Signs: Last Vital Signs Temp 98.1 F 07/03/20 07:47 Pulse 115 H 07/03/20 07:47 Resp 19 07/03/20 07:47 BP 119/64 07/03/20 07:47 Pulse Ox 94 07/03/20 07:47 Body Mass Index 18.4 Laboratory Results - last 24 hr 07/03/20 07/03/20 05:49 05:49 WBC 11.5 H RBC 4.57 L Hgb 14.5 Hct 43.4 MCV 95.0 MCH 31.7 MCHC 33.4 RDW 19.9 H Plt Count 62 L D MPV Not Reportable Absolute Nucleated RBC 0.000 Nucleated RBC % (a uto) 0.0 Sodium 140 Potassium 4.1 Chloride 104 Carbon Dioxide 27 Anion Gap 13 BUN 31 H D Creatinine 0.59 Estim Creat Clear Calc 60.3 Estimated GFR > 60 Random Glucose 86 Calcium 7.8 L D Const: Other: Some shortness of breath, as baseline General: comfortable Resp: Other: Some shortness of breath Cardio: Rate: tachycardic GI: Other: Stoma functioning well, viable, incisions clean Palpation (GI): Soft to palpation and not firm Progress Note: A&P Assessment and plan (1) Colon cancer metastasized to liver: Status: Acute Assessment and Plan: Status post loop ileostomy Stoma functioning well Path report shows metastatic lesion in the liver likely from colon adenocarcinoma Plan is palliative care -patient and daughter understand He is awaiting placement DNR DNI in affect human resources training manager involved Fall Risk Details Current Medications: Current Medications Generic Name Dose Route Start Last Admin Trade Name Freq PRN Reason Stop Dose Admin Acetaminophen 650 mg 07/01/20 13:45 Acetaminophen 325 Mg Tablet PO ONCE PRN Pain, Mild (Pain Scale 1-3) Albuterol Sulfate 2 puff 06/28/20 13:14 07/03/20 09:25 Albuterol Sulfate 90 Mcg 8 Gm Inhaler INHALE 2 puff Q3H PRN Administration Shortness of Breath/Wheezing Albuterol/Ipratropium 3 ml 07/01/20 20:00 07/03/20 07:17 Albuterol/Iprat 2.5/0.5mg 3 Ml Ampul.Neb INHALE 3 ml RQID KUSUM Administration Fentanyl 50 mcg 07/01/20 13:45 Fentanyl Citrate/Pf 100 Mcg/2 Ml Vial IVPUSH Q5M PRN Pain, Severe (Pain Scale 7-10) Guaifenesin 5 ml 06/29/20 16:12 06/29/20 17:27 Guaifenesin 100 Mg/5 Ml Liquid PO 5 ml Q4H PRN Administration Cough Heparin Sodium (Porcine) 5,000 unit 06/29/20 10:30 07/03/20 09:25 Heparin Sodium,Porcine 5,000 Unit/Ml Vial SUBCUT 5,000 unit Q12H KUSUM Administration Hydromorphone HCl 0.25 mg 06/29/20 16:13 07/03/20 04:21 Hydromorphone Hcl 0.5 Mg/0.5 Ml Syringe IVPUSH 0.25 mg Q4H PRN Administration Pain, Severe (Pain Scale 7-10) Promethazine HCl 12.5 mg/ 50.5 mls @ 202 mls/hr 07/01/20 13:45 Sodium Chloride IV ONCE PRN Nausea and Vomiting Acetaminophen 1,000 mg in 100 mls @ 400 mls/hr 07/01/20 18:00 07/03/20 06:04 Ofirmev IV Not Given Q6H KUSUM Metoprolol Succinate 12.5 mg 07/03/20 09:00 07/03/20 09:33 Metoprolol Succinate Er 12.5 Mg Halftab.Er.24h PO 12.5 mg DAILY KUSUM Administration Protocol Oxycodone HCl 5 mg 07/01/20 13:45 Oxycodone Hcl Immed Release 5 Mg Tablet PO ONCE PRN Pain, Severe (Pain Scale 7-10) Pharmacy Consult 1 each 06/26/20 00:10 Consult Rx Perform Med Rec MISCELLANE ONCE PRN Consult order Sodium Chloride 3 ml 06/26/20 08:00 07/03/20 09:32 0.9 % Sodium Chloride Flush 3 Ml Syringe IVFLUSH 3 ml QSHIFT KUSUM Administration Time Spent With Patient Time: Total time spent is greater than 50% in coordination of care (as documented) at patient's floor/unit and/or counseling patient: Time with patient: 15 - 24 minutes Procedures Date of Service Date of Service: 07/03/20
--- NOTE | 2020-07-03 13:06 | MHC.CLN ---
F/U PO INTAKE 0-25% AVG DIET RX: REGULAR-APPROPRIATE RECOMMEND ENSURE TID TO INCREASE KCALS SUPPLEMENT WILL PROVIDE 1020KCALS, 60G PROTEIN MONITOR PO INTAKE CLOSELY
--- NOTE | 2020-07-03 15:19 | HO.PM.IMPN ---
Subjective Subjective Date of Service: 07/03/20 Interval History: the patient was seen and evaluated this morning Laying in bed, feels comfortable overall Denies any fever, chills or shortness of breath Ostomy is working, he is tolerating diet well No reported other overnight events. Systemic review: No fever, chills or weakness No chest pain, palpitation No shortness of breath or coughing No abdominal pain, No urinary symptoms No any rash or wounds Physical Exam Vital Signs: Vital Signs: Last Vital Signs Temp 97.7 F 07/03/20 11:06 Pulse 118 H 07/03/20 11:06 Resp 19 07/03/20 11:06 BP 110/60 07/03/20 11:06 Pulse Ox 98 07/03/20 11:06 Oxygen Flow Rate 2 07/03/20 13:00 Body Mass Index 18.4 Const: Other: Constitutional : Alert, not in distress Neck : Normal inspection, Supple Cardiovascular : RRR, S1 S2, no lower extremity edema Respiratory : Good bilateral air entry, no crackles, wheezes or rhonchi Gastrointestinal: soft, lax, Normal bowel sounds, Non tender, Ostomy inplace with no erythema or drianage, bag is filled with black soft stool Skin : Warm/Dry, No rash Neurological : Alert & oriented x3, No focal deficit Objective Data Current Medications Generic Name Dose Route Start Last Admin Trade Name Dwayneq PRN Reason Stop Dose Admin Acetaminophen 650 mg 07/01/20 13:45 Acetaminophen 325 Mg Tablet PO ONCE PRN Pain, Mild (Pain Scale 1-3) Albuterol Sulfate 2 puff 06/28/20 13:14 07/03/20 09:25 Albuterol Sulfate 90 Mcg 8 Gm Inhaler INHALE 2 puff Q3H PRN Administration Shortness of Breath/Wheezing Albuterol/Ipratropium 3 ml 07/01/20 20:00 07/03/20 11:14 Albuterol/Iprat 2.5/0.5mg 3 Ml Ampul.Neb INHALE Not Given RQID KUSUM Fentanyl 50 mcg 07/01/20 13:45 Fentanyl Citrate/Pf 100 Mcg/2 Ml Vial IVPUSH Q5M PRN Pain, Severe (Pain Scale 7-10) Guaifenesin 5 ml 06/29/20 16:12 06/29/20 17:27 Guaifenesin 100 Mg/5 Ml Liquid PO 5 ml Q4H PRN Administration Cough Heparin Sodium (Porcine) 5,000 unit 06/29/20 10:30 07/03/20 09:25 Heparin Sodium,Porcine 5,000 Unit/Ml Vial SUBCUT 5,000 unit Q12H KUSUM Administration Hydromorphone HCl 0.25 mg 06/29/20 16:13 07/03/20 10:58 Hydromorphone Hcl 0.5 Mg/0.5 Ml Syringe IVPUSH 0.25 mg Q4H PRN Administration Pain, Severe (Pain Scale 7-10) Promethazine HCl 12.5 mg/ 50.5 mls @ 202 mls/hr 07/01/20 13:45 Sodium Chloride IV ONCE PRN Nausea and Vomiting Acetaminophen 1,000 mg in 100 mls @ 400 mls/hr 07/01/20 18:00 07/03/20 11:03 Ofirmev IV Not Given Q6H KUSUM Metoprolol Succinate 12.5 mg 07/03/20 09:00 07/03/20 09:33 Metoprolol Succinate Er 12.5 Mg Halftab.Er.24h PO 12.5 mg DAILY KUSUM Administration Protocol Oxycodone HCl 5 mg 07/01/20 13:45 Oxycodone Hcl Immed Release 5 Mg Tablet PO ONCE PRN Pain, Severe (Pain Scale 7-10) Pharmacy Consult 1 each 06/26/20 00:10 Consult Rx Perform Med Rec MISCELLANE ONCE PRN Consult order Sodium Chloride 3 ml 06/26/20 08:00 07/03/20 09:32 0.9 % Sodium Chloride Flush 3 Ml Syringe IVFLUSH 3 ml QSHIFT KUSUM Administration Labs CBC & Chem 7: 07/03/20 05:49 07/03/20 05:49 Assessment and Plan (1) Colon cancer metastasized to liver: Status: Acute (2) Prolonged QT interval: Status: Acute (3) Colonic mass: Status: Acute (4) HLD (hyperlipidemia): Status: Acute (5) HTN (hypertension): Status: Acute (6) Unintentional weight loss: Status: Acute (7) Moderate protein-calorie malnutrition: Status: Acute Assessment and Plan: 84 year old male with history of COPD, history of prostate cancer 20 years ago and don't believe he's ever had colonocopy is here with abdominal, anorexia and unintentional 15 Ib weight loss over the last 3 weeks and is found to have finding on CT consistent with liver met of likely colon origin, in additional to Intussusception at the hepatic flexure involving the cecum and terminal ileum. Colon cancer with met to liver associated with intussusception patient underwent loop ileostomy by general surgery Liver Bx done on 06/27- Moderately differentiated adenocarcinoma consistent with colon primary. Oncology has seen and will make recommendation for possible paliative chemo. Continue pain management with dilaudid, Prolonged Qtc improved on repeat ECG avoid meds that can prolong Qtc COPD no acute exacerbation,cont. inhalers PRN ,and change Duoneb to Q6 while awake Moderate protein calorie malnutrition started on clear liq by surgery ,will add clear ensure once tolerate current diet, will also need nutrition consult. HTN/CAD low blood pressure , Metoprolol on hold. Mild tachycardia likely reflex due to holding metoprolol and due to DuoNeb. HLD Simvastatin hold to liver disease DVT: heparin
--- NOTE | 2020-07-03 16:12 | MHC.CM.PN ---
nurse home care assistant note electronic medical record reviewed along with case discuss with staff nurse hospitlaist and surgeon, met with patient he is eager to go home and reported he was feeling much better todAY than yesterday , he was going to be sitting up in the chair today , he continues on nasAL CANULA FOR OXYGEN , I SPOKE WITH HIS DAUGHTER HERBIE , SHE REPORTED THAT SHE HAS SPOKEN WITH HER TWO BROTHERS AND HER TWO BROTHERS AND HERSELF ARE WILLING TO LEARN THE ILLEOSTOMY CARE AND WOULD LIKE THE STAFF TO TEACH THEM , THEY WOULD LIKE PATIENT TO BE DISCHARGED HOME WITH THE NA PALLATIVE SO THEY WOULD BE ABLE TO GET MORE TEACHING ON THE ILEOSTOMY APPLIANCE, AND CHNQGING THE APPLIANCE, WELL TROUBLE SHOOTING PROBLEMS LIKE LEAKING OR POUCHING, THEN TRANSFER ON TO HOSPICE DISCHARGE PLAN DISCHARGED WHEN MEDICALLY STABLE AND WHEN FAMILY/PATIENT HAS RECIVED TEACHING ON ILEOSTOMY CARE . HE WILL BE SENT HOME TO HIS AND JAYNE SONS W( AND ONE SON WILL,BE WITH HIM ALL DAY () AND THE OTHER SON WILL BE THERE ONCE HE GETS OUT OF WORK WELL HIS DTR HERBIE SALAZARA FOR QD NURSING AND ASSESS FOR HOME PT TRANSP-ACTION BLS
[2020-07-04] VITALS (9 sets, daily range): BP systolic 97–113; BP diastolic 53–63; PULSE 101–115; RESP 17–19; TEMP 36.1–36.9; O2SAT 94–98
[2020-07-04] MEDS: HYDROmorphone HCl 0.5 MG/0.5 ML SYRINGE 0.25 MG IVPUSH ×4 (04:20→22:40)
[2020-07-04] MEDS: Albuterol Sulfate 90 MCG 8 GM INHALER 2 PUFF INHALE ×2 (04:25→09:25)
[2020-07-04] MEDS: 0.9 % Sodium Chloride Flush 3 ML SYRINGE IVFLUSH ×3 (08:18→22:41)
[2020-07-04] MEDS: Heparin Sodium,Porcine 5,000 UNIT/ML VIAL 5000 UNIT SUBCUT ×2 (09:27→22:29)
--- NOTE | 2020-07-04 10:08 | W.MHC.ACPN ---
Advanced Care Planning Note Advanced Care Planning Note Discussed with: patient Time spent (in minutes): 18 Narrative: I had a chance to meet with the patient in his room this morning to discuss ongoing medical problems and goals of care. The patient was admitted to the hospital for intussusception as a result of metastatic colon cancer. He underwent surgical procedures and creation of ostomy with significant improvement in his abdominal pain inability to eat. The patient reported that he has been losing weight over the last 2 months and feeling more lethargic and tired. He helps his at home who has longstanding disease as well. The patient mention that he understand his condition with the metastatic disease and does not feel he is in a good physical condition to tolerate any further chemotherapy. Asking him about coming back to the hospital for treatment he said he does not think this is the best option as he would like to stay home with his family understanding that his time is coming soon. We discussed hospice measures and what the hospice care team can provide for him at home. He seems to be accepting hospice measures at this stage. Referral for hospice care was done with plan to go home on hospice. Problems Discussed (1) Colon cancer metastasized to liver: (2) Prolonged QT interval: (3) Colonic mass: (4) HLD (hyperlipidemia): (5) HTN (hypertension): (6) Unintentional weight loss: (7) Moderate protein-calorie malnutrition: (8) FTT (failure to thrive) in adult:
--- NOTE | 2020-07-04 10:14 | P.PNGS_ITS ---
Subjective Subjective Date of Service: 07/04/20 Interval history: Poor p.o. intake Denies abdominal pain Stoma has been functioning well Patient has been asking to be discharged to home Physical Exam Vital Signs: Vital Signs: Last Vital Signs Temp 97.2 F 07/04/20 07:45 Pulse 101 H 07/04/20 07:45 Resp 17 07/04/20 07:45 BP 99/53 L 07/04/20 07:45 Pulse Ox 94 07/04/20 07:45 Oxygen Flow Rate 2 07/03/20 13:00 Body Mass Index 18.4 PT 17.8 SEC (10.8-13 .0) H D 06/25/20 22:04 Const: Other: Appears very frail and cachectic Resp: Other: Some shortness of breath especially with talking Cardio: Rate: regular rate GI: Other: Soft, guarding rebound, stoma functioning well, midline incision is well healing Progress Note: A&P Assessment and plan (1) Moderate protein-calorie malnutrition: Status: Acute Assessment and Plan: Push p.o. intake Anticipate progressive worsening of nutritional status in view of metastatic disease (2) Colon cancer metastasized to liver: Problem details: Status post loop ileostomy for impending obstruction Stoma is functioning well He seems to be progressively getting weaker He wants to be discharged home There are concerns with regards to barriers to home care as he takes care of his as well Furthermore, I am uncertain if his sons are willing to provide care for him at home as the nursing staff expressed this concern as well I have been regularly communicating with his daughter Elaina who agrees with discharged to home with a visiting nurse and eventual hospice care Patient and family are aware of his prognosis Will review plans with the case making machine operator as the patient wants to be discharged today Status: Acute Fall Risk Details Current Medications: Current Medications Generic Name Dose Route Start Last Admin Trade Name Freq PRN Reason Stop Dose Admin Acetaminophen 650 mg 07/01/20 13:45 Acetaminophen 325 Mg Tablet PO ONCE PRN Pain, Mild (Pain Scale 1-3) Albuterol Sulfate 2 puff 06/28/20 13:14 07/04/20 09:25 Albuterol Sulfate 90 Mcg 8 Gm Inhaler INHALE 2 puff Q3H PRN Administration Shortness of Breath/Wheezing Albuterol/Ipratropium 3 ml 07/01/20 20:00 07/04/20 07:13 Albuterol/Iprat 2.5/0.5mg 3 Ml Ampul.Neb INHALE Not Given RQID KUSUM Fentanyl 50 mcg 07/01/20 13:45 Fentanyl Citrate/Pf 100 Mcg/2 Ml Vial IVPUSH Q5M PRN Pain, Severe (Pain Scale 7-10) Guaifenesin 5 ml 06/29/20 16:12 06/29/20 17:27 Guaifenesin 100 Mg/5 Ml Liquid PO 5 ml Q4H PRN Administration Cough Heparin Sodium (Porcine) 5,000 unit 06/29/20 10:30 07/04/20 09:27 Heparin Sodium,Porcine 5,000 Unit/Ml Vial SUBCUT 5,000 unit Q12H KUSUM Administration Hydromorphone HCl 0.25 mg 06/29/20 16:13 07/04/20 09:27 Hydromorphone Hcl 0.5 Mg/0.5 Ml Syringe IVPUSH 0.25 mg Q4H PRN Administration Pain, Severe (Pain Scale 7-10) Promethazine HCl 12.5 mg/ 50.5 mls @ 202 mls/hr 07/01/20 13:45 Sodium Chloride IV ONCE PRN Nausea and Vomiting Acetaminophen 1,000 mg in 100 mls @ 400 mls/hr 07/01/20 18:00 07/04/20 05:03 Ofirmev IV Not Given Q6H [facility] Metoprolol Succinate 12.5 mg 07/03/20 09:00 07/04/20 08:02 Metoprolol Succinate Er 12.5 Mg Halftab.Er.24h PO Not Given DAILY [facility] Protocol Oxycodone HCl 5 mg 07/01/20 13:45 Oxycodone Hcl Immed Release 5 Mg Tablet PO ONCE PRN Pain, Severe (Pain Scale 7-10) Pharmacy Consult 1 each 06/26/20 00:10 Consult Rx Perform Med Rec MISCELLANE ONCE PRN Consult order Sodium Chloride 3 ml 06/26/20 08:00 07/04/20 08:18 0.9 % Sodium Chloride Flush 3 Ml Syringe IVFLUSH 3 ml QSHIFT KUSUM Administration Time Spent With Patient Time: Total time spent is greater than 50% in coordination of care (as documented) at patient's floor/unit and/or counseling patient: Time with patient: 25 - 35 minutes Procedures Date of Service Date of Service: 07/04/20
[2020-07-04] MEDS: Albuterol/Iprat 2.5/0.5MG 3 ML AMPUL.NEB INHALE ×3 (11:02→20:04)
--- NOTE | 2020-07-04 11:28 | MHC.CM.PN ---
a ref. has been made to [facility] per hospitalist's request. pt was accepted and at this time the dc plan is for patient to be dc'd tomorrow on hospice to home. [facility] says they are planning to have bed delivered to patient's home in the a.m. tomorrow. pt's adult children are planning to come into hospital today p work to learn how to change and empty colostomy bag. hospitalist and surgery and nsg are aware of this dc plan. cm to cont. to follow.
--- NOTE | 2020-07-04 14:28 | P.PNIM_ITS ---
Subjective Subjective Date of Service: 07/04/20 Interval History: the patient was seen and evaluated this morning Laying in bed, feels better overall better, ostomy is working well with no complaints from the patient Does not want to come back to the hospital as we spoke about comfort approach Denies any fever, chills or shortness of breath No reported other overnight events. Systemic review: No fever, chills or weakness No chest pain, palpitation No shortness of breath or coughing No abdominal pain, No urinary symptoms No any rash or wounds Physical Exam Vital Signs: Vital Signs: Last Vital Signs Temp 98.4 F 07/04/20 11:47 Pulse 115 H 07/04/20 11:47 Resp 17 07/04/20 11:47 BP 99/57 L 07/04/20 11:47 Pulse Ox 95 07/04/20 11:47 Oxygen Flow Rate 2 07/04/20 11:55 Body Mass Index 18.4 Const: Other: Constitutional : Alert, not in distress Neck : Normal inspection, Supple Cardiovascular : RRR, S1 S2, no lower extremity edema Respiratory : Good bilateral air entry, no crackles, wheezes or rhonchi Gastrointestinal: soft, lax, Normal bowel sounds, Non tender, Ostomy inplace with no erythema or drianage, bag is filled with black soft stool Skin : Warm/Dry, No rash Neurological : Alert & oriented x3, No focal deficit Objective Data Current Medications Generic Name Dose Route Start Last Admin Trade Name Freq PRN Reason Stop Dose Admin Acetaminophen 650 mg 07/01/20 13:45 Acetaminophen 325 Mg Tablet PO ONCE PRN Pain, Mild (Pain Scale 1-3) Albuterol Sulfate 2 puff 06/28/20 13:14 07/04/20 09:25 Albuterol Sulfate 90 Mcg 8 Gm Inhaler INHALE 2 puff Q3H PRN Administration Shortness of Breath/Wheezing Albuterol/Ipratropium 3 ml 07/01/20 20:00 07/04/20 11:02 Albuterol/Iprat 2.5/0.5mg 3 Ml Ampul.Neb INHALE 3 ml RQID KUSUM Administration Fentanyl 50 mcg 07/01/20 13:45 Fentanyl Citrate/Pf 100 Mcg/2 Ml Vial IVPUSH Q5M PRN Pain, Severe (Pain Scale 7-10) Guaifenesin 5 ml 06/29/20 16:12 06/29/20 17:27 Guaifenesin 100 Mg/5 Ml Liquid PO 5 ml Q4H PRN Administration Cough Heparin Sodium (Porcine) 5,000 unit 06/29/20 10:30 07/04/20 09:27 Heparin Sodium,Porcine 5,000 Unit/Ml Vial SUBCUT 5,000 unit Q12H KUSUM Administration Hydromorphone HCl 0.25 mg 06/29/20 16:13 07/04/20 09:27 Hydromorphone Hcl 0.5 Mg/0.5 Ml Syringe IVPUSH 0.25 mg Q4H PRN Administration Pain, Severe (Pain Scale 7-10) Promethazine HCl 12.5 mg/ 50.5 mls @ 202 mls/hr 07/01/20 13:45 Sodium Chloride IV ONCE PRN Nausea and Vomiting Acetaminophen 1,000 mg in 100 mls @ 400 mls/hr 07/01/20 18:00 07/04/20 11:35 Ofirmev IV Not Given Q6H [facility] Metoprolol Succinate 12.5 mg 07/03/20 09:00 07/04/20 08:02 Metoprolol Succinate Er 12.5 Mg Halftab.Er.24h PO Not Given DAILY [facility] Protocol Oxycodone HCl 5 mg 07/01/20 13:45 Oxycodone Hcl Immed Release 5 Mg Tablet PO ONCE PRN Pain, Severe (Pain Scale 7-10) Pharmacy Consult 1 each 06/26/20 00:10 Consult Rx Perform Med Rec MISCELLANE ONCE PRN Consult order Sodium Chloride 3 ml 06/26/20 08:00 07/04/20 08:18 0.9 % Sodium Chloride Flush 3 Ml Syringe IVFLUSH 3 ml QSHIFT KUSUM Administration Labs CBC & Chem 7: 07/03/20 05:49 07/03/20 05:49 Assessment and Plan (1) Colon cancer metastasized to liver: Status: Acute (2) Prolonged QT interval: Status: Acute (3) Colonic mass: Status: Acute (4) HLD (hyperlipidemia): Status: Acute (5) HTN (hypertension): Status: Acute (6) Unintentional weight loss: Status: Acute (7) Moderate protein-calorie malnutrition: Status: Acute (8) FTT (failure to thrive) in adult: Status: Acute Assessment and Plan: 84 year old male with history of COPD, history of prostate cancer 20 years ago and don't believe he's ever had colonocopy is here with abdominal, anorexia and unintentional 15 Ib weight loss over the last 3 weeks and is found to have finding on CT consistent with liver met of likely colon origin, in additional to Intussusception at the hepatic flexure involving the cecum and terminal ileum. Colon cancer with met to liver associated with intussusception patient underwent loop ileostomy by general surgery Liver Bx done on 06/27- Moderately differentiated adenocarcinoma consistent with colon primary. Oncology following the patient Continue pain management with dilaudid, Discussed with the patient, interested more on hospice care which will be arranged for him at home by tomorrow Prolonged Qtc improved on repeat ECG avoid meds that can prolong Qtc COPD no acute exacerbation,cont. inhalers PRN ,and change Duoneb to Q6 while awake Moderate protein calorie malnutrition started on clear liq by surgery ,will add clear ensure once tolerate current diet, will also need nutrition consult. HTN/CAD low blood pressure , Metoprolol on hold. Mild tachycardia likely reflex due to holding metoprolol and due to DuoNeb. HLD Simvastatin hold to liver disease DVT: heparin Thank you for the consult, will continue to follow the patient with you
--- NOTE | 2020-07-04 15:32 | PM.EVENT ---
Event Note Date of Service: 07/04/20 Event Note: Patient says that he wants hospice arranged Discussed with case work aideassistant production manager care arrangements may be ready by tomorrow I have discussed this with the patient's , daughter and son They are aware and are understanding of the plan
[2020-07-05] VITALS: BP 95/60; PULSE 112; RESP 16; TEMP 36.7; O2SAT 96
[2020-07-05] MEDS: guaiFENesin 100 MG/5 ML LIQUID PO (02:03)
[2020-07-05 04:00] VITALS: BP 103/60; PULSE 107; RESP 18; TEMP 36.8; O2SAT 96
[2020-07-05] MEDS: HYDROmorphone HCl 0.5 MG/0.5 ML SYRINGE 0.25 MG IVPUSH (05:43)
[2020-07-05 07:55] VITALS: BP 100/58; PULSE 108; RESP 17; TEMP 36.4; O2SAT 97
[2020-07-05] MEDS: Albuterol/Iprat 2.5/0.5MG 3 ML AMPUL.NEB INHALE (08:10)
[2020-07-05 08:12] VITALS: PULSE 108; O2SAT 97
--- NOTE | 2020-07-05 08:33 | PM.PNGS ---
Subjective Subjective Date of Service: 07/05/20 Interval history: says he feels ok states he is looking forward to going home stoma functioning Physical Exam Vital Signs: Vital Signs: Last Vital Signs Temp 97.5 F 07/05/20 07:55 Pulse 108 H 07/05/20 08:12 Resp 17 07/05/20 07:55 BP 100/58 L 07/05/20 07:55 Pulse Ox 97 07/05/20 07:55 Oxygen Flow Rate 2 07/04/20 11:55 Body Mass Index 18.4 Const: Other: very frail. cachectic looking Resp: Other: appears short of breath as baseline Cardio: Rhythm: regular rhythm GI: Other: soft, stoma functioning well, Palpation (GI): not firm and no guarding Progress Note: A&P Assessment and plan (1) Colon cancer metastasized to liver: Status: Acute Assessment and Plan: s/p loop ileostomy for palliation going home on hospice today he understands prognosis family aware - I have discussed plans with them pain mgt appreciate hospitalist input Fall Risk Details Current Medications: Current Medications Generic Name Dose Route Start Last Admin Trade Name Freq PRN Reason Stop Dose Admin Acetaminophen 650 mg 07/01/20 13:45 Acetaminophen 325 Mg Tablet PO ONCE PRN Pain, Mild (Pain Scale 1-3) Albuterol Sulfate 2 puff 06/28/20 13:14 07/04/20 09:25 Albuterol Sulfate 90 Mcg 8 Gm Inhaler INHALE 2 puff Q3H PRN Administration Shortness of Breath/Wheezing Albuterol/Ipratropium 3 ml 07/01/20 20:00 07/05/20 08:10 Albuterol/Iprat 2.5/0.5mg 3 Ml Ampul.Neb INHALE 3 ml RQID KUSUM Administration Fentanyl 50 mcg 07/01/20 13:45 Fentanyl Citrate/Pf 100 Mcg/2 Ml Vial IVPUSH Q5M PRN Pain, Severe (Pain Scale 7-10) Guaifenesin 5 ml 06/29/20 16:12 07/05/20 02:03 Guaifenesin 100 Mg/5 Ml Liquid PO 5 ml Q4H PRN Administration Cough Heparin Sodium (Porcine) 5,000 unit 06/29/20 10:30 07/04/20 22:29 Heparin Sodium,Porcine 5,000 Unit/Ml Vial SUBCUT 5,000 unit Q12H KUSUM Administration Hydromorphone HCl 0.25 mg 07/04/20 17:02 07/05/20 05:43 Hydromorphone Hcl 0.5 Mg/0.5 Ml Syringe IVPUSH 0.25 mg Q4H PRN Administration Pain, Severe (Pain Scale 7-10) Promethazine HCl 12.5 mg/ 50.5 mls @ 202 mls/hr 07/01/20 13:45 Sodium Chloride IV ONCE PRN Nausea and Vomiting Metoprolol Succinate 12.5 mg 07/03/20 09:00 07/04/20 08:02 Metoprolol Succinate Er 12.5 Mg Halftab.Er.24h PO Not Given DAILY [facility] Protocol Oxycodone HCl 5 mg 07/01/20 13:45 Oxycodone Hcl Immed Release 5 Mg Tablet PO ONCE PRN Pain, Severe (Pain Scale 7-10) Pharmacy Consult 1 each 06/26/20 00:10 Consult Rx Perform Med Rec MISCELLANE ONCE PRN Consult order Sodium Chloride 3 ml 06/26/20 08:00 07/04/20 22:41 0.9 % Sodium Chloride Flush 3 Ml Syringe IVFLUSH 3 ml QSHIFT KUSUM Administration Time Spent With Patient Time: Total time spent is greater than 50% in coordination of care (as documented) at patient's floor/unit and/or counseling patient: Time with patient: 15 - 24 minutes Procedures Date of Service Date of Service: 07/05/20
[2020-07-05] MEDS: Metoprolol Succinate ER 12.5 MG HALFTAB.ER.24H PO (08:50)
[2020-07-05] MEDS: 0.9 % Sodium Chloride Flush 3 ML SYRINGE IVFLUSH (08:51)
[2020-07-05] MEDS: Heparin Sodium,Porcine 5,000 UNIT/ML VIAL 5000 UNIT SUBCUT (08:51)
--- NOTE | 2020-07-05 11:21 | P.PNIM_ITS ---
Subjective Subjective Date of Service: 07/05/20 Interval History: the patient was seen and evaluated this morning Laying in bed, feels better overall better and encouraged by going home ostomy is working well with no complaints from the patient Denies any fever, chills or shortness of breath No reported other overnight events. Systemic review: No fever, chills or weakness No chest pain, palpitation No shortness of breath or coughing No abdominal pain, Physical Exam Vital Signs: Vital Signs: Last Vital Signs Temp 97.5 F 07/05/20 07:55 Pulse 108 H 07/05/20 08:12 Resp 17 07/05/20 07:55 BP 100/58 L 07/05/20 07:55 Pulse Ox 97 07/05/20 07:55 Oxygen Flow Rate 2 07/04/20 11:55 Body Mass Index 18.4 Const: Other: Constitutional : Alert, not in distress Neck : Normal inspection, Supple Cardiovascular : RRR, S1 S2, no lower extremity edema Respiratory : Good bilateral air entry, no crackles, wheezes or rhonchi Gastrointestinal: soft, lax, Normal bowel sounds, Non tender, Ostomy inplace with no erythema or drianage Skin : Warm/Dry, No rash Neurological : Alert & oriented x3, No focal deficit Objective Data Current Medications Generic Name Dose Route Start Last Admin Trade Name Freq PRN Reason Stop Dose Admin Acetaminophen 650 mg 07/01/20 13:45 Acetaminophen 325 Mg Tablet PO ONCE PRN Pain, Mild (Pain Scale 1-3) Albuterol Sulfate 2 puff 06/28/20 13:14 07/04/20 09:25 Albuterol Sulfate 90 Mcg 8 Gm Inhaler INHALE 2 puff Q3H PRN Administration Shortness of Breath/Wheezing Albuterol/Ipratropium 3 ml 07/01/20 20:00 07/05/20 08:10 Albuterol/Iprat 2.5/0.5mg 3 Ml Ampul.Neb INHALE 3 ml RQID KUSUM Administration Fentanyl 50 mcg 07/01/20 13:45 Fentanyl Citrate/Pf 100 Mcg/2 Ml Vial IVPUSH Q5M PRN Pain, Severe (Pain Scale 7-10) Guaifenesin 5 ml 06/29/20 16:12 07/05/20 02:03 Guaifenesin 100 Mg/5 Ml Liquid PO 5 ml Q4H PRN Administration Cough Heparin Sodium (Porcine) 5,000 unit 06/29/20 10:30 07/05/20 08:51 Heparin Sodium,Porcine 5,000 Unit/Ml Vial SUBCUT 5,000 unit Q12H KUSUM Administration Hydromorphone HCl 0.25 mg 07/04/20 17:02 07/05/20 05:43 Hydromorphone Hcl 0.5 Mg/0.5 Ml Syringe IVPUSH 0.25 mg Q4H PRN Administration Pain, Severe (Pain Scale 7-10) Promethazine HCl 12.5 mg/ 50.5 mls @ 202 mls/hr 07/01/20 13:45 Sodium Chloride IV ONCE PRN Nausea and Vomiting Metoprolol Succinate 12.5 mg 07/03/20 09:00 07/05/20 08:50 Metoprolol Succinate Er 12.5 Mg Halftab.Er.24h PO 12.5 mg DAILY KUSUM Administration Protocol Oxycodone HCl 5 mg 07/01/20 13:45 Oxycodone Hcl Immed Release 5 Mg Tablet PO ONCE PRN Pain, Severe (Pain Scale 7-10) Pharmacy Consult 1 each 06/26/20 00:10 Consult Rx Perform Med Rec MISCELLANE ONCE PRN Consult order Sodium Chloride 3 ml 06/26/20 08:00 07/05/20 08:51 0.9 % Sodium Chloride Flush 3 Ml Syringe IVFLUSH 3 ml QSHIFT KUSUM Administration Labs CBC & Chem 7: 07/03/20 05:49 07/03/20 05:49 Assessment and Plan (1) Colon cancer metastasized to liver: Status: Acute (2) Prolonged QT interval: Status: Acute (3) Colonic mass: Status: Acute (4) HLD (hyperlipidemia): Status: Acute (5) HTN (hypertension): Status: Acute (6) Unintentional weight loss: Status: Acute (7) Moderate protein-calorie malnutrition: Status: Acute (8) FTT (failure to thrive) in adult: Status: Acute Assessment and Plan: 84 year old male with history of COPD, history of prostate cancer 20 years ago and don't believe he's ever had colonocopy is here with abdominal, anorexia and unintentional 15 Ib weight loss over the last 3 weeks and is found to have fi nding on CT consistent with liver met of likely colon origin, in additional to Intussusception at the hepatic flexure involving the cecum and terminal ileum. Colon cancer with met to liver associated with intussusception patient underwent loop ileostomy by general surgery Liver Bx done on 06/27- Moderately differentiated adenocarcinoma consistent with colon primary Discussed with the patient, interested more on hospice care which will be arranged for him at home by today The discharged on oxycodone for pain as needed A MOLST form was signed with the patient Prolonged Qtc improved on repeat ECG avoid meds that can prolong Qtc COPD cont. inhalers PRN ,and change Duoneb to Q6 while awake Moderate protein calorie malnutrition Tolerating diet, continue with Ensure as patient likes it HTN/CAD Blood pressure improved while holding metoprolol, to discontinue at discharge for low blood pressure readings during hospital stay. HLD Simvastatin hold to liver disease DVT heparin
[2020-07-05 11:31] VITALS: BP 109/55; PULSE 108; RESP 16; TEMP 36.3; O2SAT 98
--- NOTE | 2020-07-05 13:33 | PC.NURSE ---
Pt daughter Elaina came to nurses desk and asked for prescription and an envelope addressed to her. Envelope and presciption given to lydia Delaney.
--- NOTE | 2020-07-08 14:11 | PM.DS ---
DS: Providers Provider Date of Service: 07/08/20 Date of admission: 06/26/20 01:01 Primary care physician: Neeraj Andrew MD Consults: 06/26/20 01:01 Consult to Hospitalist Routine Consulting Provider: Hospitalist Reason For Exam: COPD 06/26/20 08:16 Consult to Hematology / Oncology Routine Consulting Provider: [facility] [place]/Hematology Reason for consultation: metastatic colon cancer 06/26/20 09:05 Consult to Cardiology Routine Consulting Provider: Jaya Greenberg Reason for consultation: prolonged QTC, pre op eval DS: Diagnosis Discharge Diagnosis (1) Colon cancer metastasized to liver: Status: Acute Problem details: 84-year-old male was brought the emergency room on the night of 06/25/2020 because of abdominal pain. He also had associated significant weight loss and progressive weakness. He had a CAT scan showing a right colon mass that seemed to be intussuscepting all the way to the transverse colon, with note of extensive disease of the liver. He was not obstructed on clinical exam as well as on CAT scan. He was admitted and he was kept on clear liquids. He otherwise had benign exam on admission. CT underwent CT biopsy of the liver lesions on June 27, 2020. This turned out to be consistent with metastatic adenocarcinoma from the colon. In view of his likelihood of obstruction from the tumor, explained to him the option of proceeding with loop ileostomy. He had discussions with this family about this and he wanted to proceed. He underwent laparoscopic loop ileostomy on July 01, 2020. He tolerated procedure well. He was restarted on clear liquids and this was advanced. He had good function of his ileostomy on postop day 1. He continued to have significant progressive weakness and pain on the of the liver likely from his metastatic disease. He had decided that he wanted to be on hospice care. I had reviewed this with his family as well. He continued to have a slow decline in his overall level of function during his hospital stay. He had been seen by the medical oncologist who had deemed him to be not candidate for palliative chemotherapy. Home hospice was therefore arranged for him after discussions with the case consultant. He was therefore discharged with home hospice services on July 05, 2020. (2) FTT (failure to thrive) in adult: Status: Acute Problem details: He has had poor oral intake for several months and had been losing weight as well. This is likely due to his metastatic colon cancer. He was cachectic when initially seen for admission. (3) COPD (chronic obstructive pulmonary disease): Status: Acute Problem details: He has chronic shortness of breath and poor exercise tolerance. He will continue to be on his inhalers on discharge. DS: Medications Discharge Medications Home Medications: Home Medications Medication Instructions Recorded Confirmed albuterol sulfate 2 puff PO Q4H PRN 06/26/20 06/26/20 Previous Rx's Medication Instructions Recorded ondansetron 4 mg PO Q8H PRN #60 tab 07/05/20 oxycodone 5 mg PO ONCE PRN #30 tab 07/05/20 DS: Summary Time Spent with Patient Time attestation: Total time spent providing and/or coordinating discharge services: Discharge coordination time: Greater than 30 minutes Quality: Stroke Does the patient have a stroke diagnosis?: No Physical Exam Vital Signs: Vital Signs: Last Vital Signs Temp 97.4 F 07/05/20 11:31 Pulse 108 H 07/05/20 11:31 Resp 16 07/05/20 11:31 BP 109/55 L 07/05/20 11:31 Pulse Ox 98 07/05/20 11:31 Oxygen Flow Rate 2 07/05/20 13:00 Body Mass Index 18.4 Const: Other: Very frail looking and cachectic Neck: Neck: No lymphadenopathy Cardio: Other: Some shortness of breath from his COPD, GI: Other: Soft, mild tenderness on the area of the liver, loop ileostomy is functioning well Extrem: General: Yes no pedal edema DS: Data Data Completed and Pending Completed studies during hospitalization [Text1]: Pending at discharge 06/27/20 15:30 Surgical [PTH] Routine Discharge Plan Discharge Patient Disposition: Hospice - Home Discharge Diagnosis: metastatic colon cancer Referrals: [facility] [Outside] - 1 Day ([facility] WILL PROVIDE YOU WITH THE HOSPITLA BED, AND HOME OXYGEN WELL THE HOSPICE SUPPORT SERVICES. TRANSPORTATION [facility]IA [facility] TODAY AT 4PM BLS ) Neeraj Andrew MD [Primary Care Provider] - 1 Week Discharge Medications: New ondansetron 4 mg tablet,disintegrating 4 mg PO Q8H PRN (Reason: nausea and vomiting) Qty: 60 RF: 0 oxycodone 5 mg Tablet 5 mg PO ONCE PRN (Reason: Pain, Severe (Pain Scale 7-10)) Qty: 30 RF: 0 Continued albuterol sulfate 90 mcg/actuation HFA aerosol inhaler 2 puff PO Q4H PRN (Reason: Wheezing) RF: 0 Discontinued metoprolol succinate 50 mg tablet extended release 24 hr 1 tab PO DAILY RF: 0 simvastatin 40 mg tablet 1 tab PO DAILY RF: 0 Discharge Orders: Discharge Order (Routine); Ordered 07/05/20 Ordered By: Jordyn Mccrary Activity on Discharge: As tolerated Stand Alone Forms: Patient Portal Discharge page Care Plan Goals: comfort care pain control Health Concerns: metastatic colon cancer malnutrition Plan of Treatment: hospice Assessment: terminally ill Discharge Date/Time: 07/05/20 16:07
== END 2020-07-05 16:07 | disposition hospice, home (50) | DRG 330 ==
LOC: HO.ED 06-26 00:43 → HO.EDOVER 06-26 01:10 → HO.IMC 06-26 01:21 → HO.S3 06-30 02:42
PROVIDERS: Internal Medicine; Internal Medicine Cardiovascular Disease; Radiology Diagnostic Radiology; Student in an Organized Health Care Education/Training Program; Admitting Provider Surgery; Emergency Provider Emergency Medicine; PCP Internal Medicine; Visit Provider Surgery
PROC: 0D1B4Z4 Bypass Ileum to Cutaneous, Percutaneous Endoscopic Approach (ICD-10-PCS; principal; 2020-07-01 12:30)
DX: C18.9 Malignant neoplasm of colon, unspecified (principal); C78.7 Secondary malignant neoplasm of liver and intrahepatic bile duct; E44.0 Moderate protein-calorie malnutrition; Z68.1 Body mass index [BMI] 19.9 or less, adult; K56.1 Intussusception; J44.9 Chronic obstructive pulmonary disease, unspecified; R94.31 Abnormal electrocardiogram [ECG] [EKG]; I10 Essential (primary) hypertension; E78.5 Hyperlipidemia, unspecified; R62.7 Adult failure to thrive; I25.10 Atherosclerotic heart disease of native coronary artery without angina pectoris; I25.2 Old myocardial infarction; Z20.822 Contact with and (suspected) exposure to COVID-19; Z87.891 Personal history of nicotine dependence; Z79.899 Other long term (current) drug therapy; Z66 Do not resuscitate
CPT/HCPCS: 36415; 47000; 74177; 77012; 80048; 80076; 81001; 81210; 81275; 81276; 81311; 81403; 82272; 83690; 83735; 85025; 85027; 85610; 87635; 88307; 88313; 88341; 88342; 93005; 93306; 94640; 96374; 96375; 99024; 99152; 99285; J0131; J0690; J1100; J1170; J2270; J2370; J2405; J3010; Q9967